=== PATIENT | female | born 1960 | race Caucasian/White ===

== ENCOUNTER 2018-07-09 11:11 | Emergency (ER) | payer OTHER, SELFPAY ==
[2018-07-09 12:04] VITALS: BP 171/98; PULSE 83; RESP 16; TEMP 37.4; O2SAT 98
[2018-07-09] MEDS: ONDANSETRON 4 MG/2 ML INJ IV ×2 (13:13→14:54)
[2018-07-09 13:20] VITALS: BP 169/92; PULSE 66; RESP 15; O2SAT 98
[2018-07-09 13:27] LABS: Add Manual Diff / Slide Review NO; Basophils Percent Auto 1.4 % (0-2); Eosinophils Percent Auto 2.5 % (2-4); Hematocrit 41.2 % (36-46); Hemoglobin 14.1 g/dL (12.0-16.0); Lymphocytes Percent Auto 36.1 % (25-40); Mean Corpuscular HGB Conc 34.2 % (30-36); Mean Corpuscular Hemoglobin 33.3 PG (26-34); Mean Corpuscular Volume 97.5 fL (80-100); Monocytes Percent Auto 4.9 % (3-14); Neutrophils Absolute Auto 4400 /uL (3000-5900); Neutrophils Percent Auto 55.1 % (50-75); Platelet Count 289 X10^3/uL (150-400); Red Blood Cell Count 4.22 X10^6/uL (4.0-5.2); Red Cell Distribution Width 12.6 % (11.6-14.8)
[2018-07-09 13:28] LABS: Prothrombin Time 11.1 SECONDS (10.1-12.7)
[2018-07-09 13:31] LABS: PTT Partial Thromboplastin Tim 30 SECONDS (26.4-36.2)
[2018-07-09 13:39] LABS: Alanine Aminotransferase 22 IU/L (9-52); Albumin 4.8 g/dL (3.5-5.0); Albumin Globulin Ratio 1.8 (1.0-2.8); Alkaline Phosphatase 78 U/L (38-126); Aspartate Aminotransferase 23 IU/L (14-36); BUN Creatinine Ratio 15.7 (6-22); Bilirubin Total 0.6 mg/dL (0.2-1.3); Blood Urea Nitrogen 11 mg/dL (7-17); Calcium 9.3 mg/dL (8.4-10.2); Carbon Dioxide 27 mmol/L (22-32); Chloride 107 mmol/L (98-107); Estimated Glomerular Filt Rate > 60.0 mL/min (>60); Globulin 2.7 g/dL (1.7-4.1); Glucose 97 mg/dL (70-100); HEMOLYSIS 18 (0-50); Lipase 32 U/L (23-300); Potassium 3.9 mmol/L (3.4-5.1); Sodium 145 mmol/L (137-145); Total Protein 7.5 g/dL (6.3-8.2)
--- NOTE | 2018-07-09 14:46 | DI.CT.S_ITS ---
PROCEDURE: CT ABDOMEN PELVIS W CON INDICATIONS: Abdomen pain TECHNIQUE: After the administration of intravenous contrast, 5 mm thick sections acquired from the diaphragm to the symphysis. 5 mm coronal and sagittal reformats were acquired. For radiation dose reduction, the following was used: automated exposure control, adjustment of mA and/or kV according to patient size. COMPARISON: [facility], CT, KIDNEY/ URETER/BLADDER, 06/19/2016, 7:34. FINDINGS: Image quality: Excellent. ABDOMEN: Lung bases: Lung bases are clear. Heart size is normal. Solid organs: Liver is normal in size and enhancement. Gallbladder wall does not appear thickened. Biliary system is non dilated. Pancreas enhances normally. The pancreatic duct measures up to 3 mm, which is at the limits of normal. Spleen is normal in size and enhancement. No adrenal nodules. Kidneys demonstrate normal size and enhancement, without hydronephrosis. Peritoneum and bowel: Bowel loops demonstrate normal wall thickness and caliber. No free fluid or air. A normal appendix is seen, as on series 2 image 52. No focal right lower quadrant inflammatory changes are seen. Diverticulosis is seen, without findings of active diverticulitis. Nodes and vessels: No retroperitoneal or mesenteric adenopathy by size criteria. Aorta and inferior vena cava are normal in size. Atherosclerotic calcification is noted. Miscellaneous: No ventral hernias. PELVIS: Genitourinary: Bladder wall thickness is normal. Miscellaneous: No inguinal hernias or adenopathy. Bones: No suspicious bony lesions. No vertebral body compression fractures. Moderate dextroconvex lumbar scoliosis is seen, with associated degenerative change. IMPRESSION: No gretchen, acute abnormality is seen. Normal appendix. No hydronephrosis. Incidental note is made of: Dextroconvex lumbar scoliosis Diverticulosis is seen, without findings of active diverticulitis. Dictated by: Luis A Amaral M.D. on 07/09/2018 at 14:15 Approved by: Luis A Amaral M.D. on 07/09/2018 at 14:20
[2018-07-09] MEDS: SODIUM CHLORIDE 0.9% 1,000 ML 1000 ML IV (14:55)
[2018-07-09] MEDS: MORPHINE 4 MG/ML INJ IV (14:55)
--- NOTE | 2018-07-09 16:07 | ED.ABDPAIN ---
HPI - Abdominal Pain <Sarah OnealELVINP-BC - Last Filed: 07/09/18 20:02> General Chief Complaint: Abdominal Pain Stated Complaint: thinks has kidney stones Time Seen by Provider: 07/09/18 13:27 Source: patient Mode of arrival: ambulatory Limitations: no limitations History of Present Illness HPI narrative: Patient presents with severe right-sided flank and right groin pain that started this morning. She states she has a history of kidney stones and felt like this was a kidney stone. She denies any fevers, vomiting, diarrhea but does complain of nausea. She states that the pain comes and goes in waves. She also complains of right-sided abdominal pain and cramping. She states she is incredibly gassy, and has been having digestive issues for several weeks. She states she is having pain in her right side when eating, as well as looser stools than normal. She states she has not had a bowel movement since Saturday but states this is normal for her. She states that she does not have any urgency frequency or dysuria. Related Data Home Medications Medication Instructions Recorded Confirmed citalopram [Celexa] 1 tab PO BEDTIME #0 06/19/16 07/09/18 calcium polycarbophil [FiberCon] 1 tab PO PRN PRN #0 02/27/17 07/09/18 cholecalciferol (vitamin D3) 1,000 unit PO DAILY #0 02/27/17 07/09/18 [Vitamin D3] multivitamin [Multiple Vitamins] 1 tab PO DAILY #0 02/27/17 07/09/18 albuterol sulfate [Ventolin HFA] 2 puff INH PRN PRN #0 03/05/17 07/09/18 Qvar RediHaler 1 puff INHALATION DIRECTED 07/09/18 07/09/18 fexofenadine [Leslie Allergy] 180 mg PO DAILY 07/09/18 07/09/18 topiramate 100 mg PO BID 07/09/18 07/09/18 Previous Rx's Medication Instructions Recorded ondansetron HCl 4 mg PO TID-QID PRN #14 tab 07/09/18 Allergies Allergy/AdvReac Type Severity Reaction Status Date / Time NSAIDS (Non-Steroidal Allergy Intermediate Unverified 12/25/17 11:46 Anti-Inflamma [NSAIDS (NON-STEROIDAL ANTI-INFLAMMA] aspirin [ASPIRIN] Allergy Unknown Unverified 12/25/17 11:46 Sulfa (Sulfonamide Allergy Unknown Unverified 12/25/17 11:46 Antibiotics) [SULFA (SULFONAMIDE ANTIBIOTICS)] Review of Systems <Sarah LeyvaELVIN gomezP- - Last Filed: 07/09/18 20:02> Review of Systems GENERAL: Denies chills, fatigue, malaise, fever, sweats. HEENT: Denies sinus pain, ear pain, sore throat, difficulty swallowing, dizziness. RESPIRATORY: Denies dyspnea, cough, wheezing, hemoptysis, sputum. CARDIOVASCULAR: Denies chest pain, palpitations, orthopnea, edema, GASTROINTESTINAL: See HPI : See HPI MUSCULOSKELETAL: denies weakness, joint pain, or bony pain SKIN: Denies rash, skin lesions, or other NEUROLOGIC: Denies weakness, headache, numbness, change in speech, confusion, seizures, incoordination. PSYCHIATRIC: No concerning psychosocial issues. 12 point review of systems is negative except for those stated above Exam <Sarah Oneal [facility] - Last Filed: 07/09/18 20:02> Narrative Exam Narrative: GENERAL: This is a well-nourished, well-developed patient, in mild distress. HEAD: Atraumatic. Normocephalic. No temporal or scalp tenderness. EYES: Pupils equal round and reactive. Extraocular motions intact. No scleral icterus. No injection or drainage. ENT: Nose without bleeding, purulent drainage or septal hematoma. Throat without erythema, tonsillar hypertrophy or exudate. Uvula midline. Airway patent. NECK: Trachea midline. No JVD or lymphadenopathy. Supple, nontender, no meningeal signs. CARDIOVASCULAR: Regular rate and rhythm without murmurs, gallops, or rubs. RESPIRATORY: Clear to auscultation. Breath sounds equal bilaterally. No wheezes, rales, or rhonchi. GASTROINTESTINAL: Abdomen soft, nondistended. No hepato-splenomegaly, or palpable masses. Slight guarding on palpation of lower right quadrant. Nonrigid abdomen. EXTREMITIES: No clubbing, cyanosis, or edema. No joint tenderness, effusion, or edema noted. BACK: Nontender without deformity or crepitance. CVA tenderness right flank. NEURO: AOx3. SKIN: No rash or erythema. Initial Vital Signs Initial Vital Signs: Vital Signs Temperature 99.3 F 07/09/18 12:04 Pulse Rate 83 07/09/18 12:04 Respiratory Rate 16 07/09/18 12:04 Blood Pressure 171/98 H 07/09/18 12:04 Pulse Oximetry 98 07/09/18 12:04 <Sarah Mc DO - Last Filed: 07/11/18 09:49> Initial Vital Signs Initial Vital Signs: Vital Signs Temperature 99.3 F 07/09/18 12:04 Pulse Rate 83 07/09/18 12:04 Respiratory Rate 16 07/09/18 12:04 Blood Pressure 171/98 H 07/09/18 12:04 Pulse Oximetry 98 07/09/18 12:04 Course <ERIC Jensen-FAVIAN - Last Filed: 07/09/18 20:02> Course Narrative: I checked on the patient and her several times throughout her stay in the emergency department. Orders Ordered: Discontinued Medications Sodium Chloride (Normal Saline 0.9%) 500 mls @ 21 mls/hr IV CONT ANAND Last Admin: 07/09/18 14:59 Dose: Not Given Sodium Chloride (Normal Saline 0.9%) 1,000 mls @ 1,000 mls/hr IV BOLUS ONE Stop: 07/09/18 15:29 Last Infusion: 07/09/18 16:27 Dose: 0 mls/hr Admin: 07/09/18 14:55 Dose: 1,000 mls/hr Morphine Sulfate (Morphine) 4 mg IV NOW ONE Stop: 07/09/18 14:47 Last Admin: 07/09/18 14:55 Dose: 4 mg Ondansetron HCl (Zofran) 4 mg IV NOW ONE Stop: 07/09/18 12:32 Last Admin: 07/09/18 13:13 Dose: 4 mg Ondansetron HCl (Zofran) 4 mg IV NOW ONE Stop: 07/09/18 14:31 Last Admin: 07/09/18 14:54 Dose: 4 mg Vital Signs - 8 hr 07/09/18 12:04 07/09/18 13:20 07/09/18 16:14 Temperature 99.3 F Pulse Rate 83 66 61 Respiratory Rate 16 15 13 Blood Pressure 171/98 H Blood Pressure [Right Arm] 169/92 H 165/100 H Pulse Oximetry 98 98 100 <Sarah Mc DO - Last Filed: 07/11/18 09:49> Orders Ordered: Discontinued Medications Sodium Chloride (Normal Saline 0.9%) 500 mls @ 21 mls/hr IV CONT ANAND Last Admin: 07/09/18 14:59 Dose: Not Given Sodium Chloride (Normal Saline 0.9%) 1,000 mls @ 1,000 mls/hr IV BOLUS ONE Stop: 07/09/18 15:29 Last Infusion: 07/09/18 16:27 Dose: 0 mls/hr Admin: 07/09/18 14:55 Dose: 1,000 mls/hr Morphine Sulfate (Morphine) 4 mg IV NOW ONE Stop: 07/09/18 14:47 Last Admin: 07/09/18 14:55 Dose: 4 mg Ondansetron HCl (Zofran) 4 mg IV NOW ONE Stop: 07/09/18 12:32 Last Admin: 07/09/18 13:13 Dose: 4 mg Ondansetron HCl (Zofran) 4 mg IV NOW ONE Stop: 07/09/18 14:31 Last Admin: 07/09/18 14:54 Dose: 4 mg Vital Signs - 8 hr 07/09/18 12:04 07/09/18 13:20 07/09/18 16:14 Temperature 99.3 F Pulse Rate 83 66 61 Respiratory Rate 16 15 13 Blood Pressure 171/98 H Blood Pressure [Right Arm] 169/92 H 165/100 H Pulse Oximetry 98 98 100 MDM - Abdominal Pain <ERIC Jensen-BC - Last Filed: 07/09/18 20:02> Lab Data Result diagrams: 07/09/18 13:10 07/09/18 13:10 Lab Results 07/09/18 07/09/18 07/09/18 Range/Units 13:10 13:10 13:10 WBC 8.0 (4.5-11.0) X10^3/uL RBC 4.22 (4.0-5.2) X10^6/uL Hgb 14.1 (12.0-16.0) g/dL Hct 41.2 (36-46) % MCV 97.5 (80-100) fL MCH 33.3 (26-34) PG MCHC 34.2 (30-36) % RDW 12.6 (11.6-14.8) % Plt Count 289 (150-400) X10^3/uL Neut % (Auto) 55.1 (50-75) % Lymph % (Auto) 36.1 (25-40) % [place] % (Auto) 4.9 (3-14) % Eos % (Auto) 2.5 (2-4) % Baso % (Auto) 1.4 (0-2) % Neut # (Auto) 4400 (6305-4365) /uL PT 11.1 (10.1-12.7) SECONDS INR 1.0 (0.9-1.3) APTT 30 (26.4-36.2) SECONDS Sodium 145 (137-145) mmol/L Potassium 3.9 (3.4-5.1) mmol/L Chloride 107 (98-107) mmol/L Carbon Dioxide 27 (22-32) mmol/L BUN 11 (7-17) mg/dL Creatinine 0.70 (0.52-1.04) mg/dL Estimated GFR > 60.0 (>60) mL/min BUN/Creatinine Ratio 15.7 (6-22) Glucose 97 (70-100) mg/dL Calcium 9.3 (8.4-10.2) mg/dL Total Bilirubin 0.6 (0.2-1.3) mg/dL AST 23 (14-36) IU/L ALT 22 (9-52) IU/L Alkaline Phosphatase 78 (38-126) U/L Total Protein 7.5 (6.3-8.2) g/dL Albumin 4.8 (3.5-5.0) g/dL Globulin 2.7 (1.7-4.1) g/dL Albumin/Globulin Ratio 1.8 (1.0-2.8) Lipase 32 (23-300) U/L Point of care testing: Urine Dip Bedside Urine Glucose Negative Bedside Urine Bilirubin - Negative Bedside Urine Ketone - Negative Urine Specific [place] 1.015 Bedside Urine Occult Blood - Negative Bedside Urine pH 7.0 Bedside Urine Protein - Negative Bedside Urine Urobilinogen - Negative Bedside Urine Nitrite - Negative Bedside Urine Leukocytes - Negative Esterase Imaging Data CT scan - head: Radiologist's impression: Chart Viewer Diagnostics DATE TYPE STATUS AUTHOR 07/09/18 14:46 Luis A Amaral Nikki S 57, 1960 DEP ER, ED - Main ED: R04 Abdominal Pain Search Chart NF - Not included in interaction checking NSAIDS (Non-Steroidal Anti-Inflamma (NSAIDS (NON-STEROIDAL ANTI-INFLAMMA) aspirin (ASPIRIN) Sulfa (Sulfonamide Antibiotics) (SULFA (SULFONAMIDE ANTIBIOTICS)) ONSET Today 16:14 [place] [address] CT Scan Report Signed Patient: Kaylyn De Leon SMR#: [id number] : 1960Acct:[id number] Age/Sex: 57 / FDate of Service: 07/09/18 Loc: ED Accession Number: [id number] Procedure: CT abdomen pelvis w con Ordering Provider: Sarah Oneal SHARK BIOLOGIST- PROCEDURE: CT ABDOMEN PELVIS W CON INDICATIONS: Abdomen pain TECHNIQUE: After the administration of intravenous contrast, 5 mm thick sections acquired from the diaphragm to the symphysis. 5 mm coronal and sagittal reformats were acquired. For radiation dose reduction, the following was used: automated exposure control, adjustment of mA and/or kV according to patient size. COMPARISON: [facility], CT, KIDNEY/ URETER/BLADDER, 06/19/2016, 7:34. FINDINGS: Image quality: Excellent. ABDOMEN: Lung bases: Lung bases are clear. Heart size is normal. Solid organs: Liver is normal in size and enhancement. Gallbladder wall does not appear thickened. Biliary system is non dilated. Pancreas enhances normally. The pancreatic duct measures up to 3 mm, which is at the limits of normal. Spleen is normal in size and enhancement. No adrenal nodules. Kidneys demonstrate normal size and enhancement, without hydronephrosis. Peritoneum and bowel: Bowel loops demonstrate normal wall thickness and caliber. No free fluid or air. A normal appendix is seen, as on series 2 image 52. No focal right lower quadrant inflammatory changes are seen. Diverticulosis is seen, without findings of active diverticulitis. Nodes and vessels: No retroperitoneal or mesenteric adenopathy by size criteria. Aorta and inferior vena cava are normal in size. Atherosclerotic calcification is noted. Miscellaneous: No ventral hernias. PELVIS: Genitourinary: Bladder wall thickness is normal. Miscellaneous: No inguinal hernias or adenopathy. Bones: No suspicious bony lesions. No vertebral body compression fractures. Moderate dextroconvex lumbar scoliosis is seen, with associated degenerative change. IMPRESSION: No gretchen, acute abnormality is seen. Normal appendix. No hydronephrosis. Incidental note is made of: Dextroconvex lumbar scoliosis Diverticulosis is seen, without findings of active diverticulitis. Dictated by: Luis A Amaral M.D. on 07/09/2018 at 14:15 Approved by: Luis A Amaral M.D. on 07/09/2018 at 14:20 [facility] Narrative Medical decision making narrative: Patient presents with vague abdominal pain for 2 weeks as well as a suspected kidney stone. She had a normal CBC, CMP and lipase and abdominal exam. She did not have an acute abdomen on exam. And a CT scan did not reveal any acute etiology. We discussed the possibility of a pelvic exam, the patient states that her pain is likely from a kidney stone and not pelvic in origin. She declined a pelvic exam in the emergency department. I encouraged her to follow up with primary care provider for new or worsening symptoms or come back to the emergency department for any acute concerns. <Sarah Mc, DO - Last Filed: 07/11/18 09:49> Lab Data Lab Results 07/09/18 07/09/18 07/09/18 Range/Units 13:10 13:10 13:10 WBC 8.0 (4.5-11.0) X10^3/uL RBC 4.22 (4.0-5.2) X10^6/uL Hgb 14.1 (12.0-16.0) g/dL Hct 41.2 (36-46) % MCV 97.5 (80-100) fL MCH 33.3 (26-34) PG MCHC 34.2 (30-36) % RDW 12.6 (11.6-14.8) % Plt Count 289 (150-400) X10^3/uL Neut % (Auto) 55.1 (50-75) % Lymph % (Auto) 36.1 (25-40) % [place] % (Auto) 4.9 (3-14) % Eos % (Auto) 2.5 (2-4) % Baso % (Auto) 1.4 (0-2) % Neut # (Auto) 4400 (5788-9226) /uL PT 11.1 (10.1-12.7) SECONDS INR 1.0 (0.9-1.3) APTT 30 (26.4-36.2) SECONDS Sodium 145 (137-145) mmol/L Potassium 3.9 (3.4-5.1) mmol/L Chloride 107 (98-107) mmol/L Carbon Dioxide 27 (22-32) mmol/L BUN 11 (7-17) mg/dL Creatinine 0.70 (0.52-1.04) mg/dL Estimated GFR > 60.0 (>60) mL/min BUN/Creatinine Ratio 15.7 (6-22) Glucose 97 (70-100) mg/dL Calcium 9.3 (8.4-10.2) mg/dL Total Bilirubin 0.6 (0.2-1.3) mg/dL AST 23 (14-36) IU/L ALT 22 (9-52) IU/L Alkaline Phosphatase 78 (38-126) U/L Total Protein 7.5 (6.3-8.2) g/dL Albumin 4.8 (3.5-5.0) g/dL Globulin 2.7 (1.7-4.1) g/dL Albumin/Globulin Ratio 1.8 (1.0-2.8) Lipase 32 (23-300) U/L Point of care testing: Urine Dip Bedside Urine Glucose Negative Bedside Urine Bilirubin - Negative Bedside Urine Ketone - Negative Urine Specific [place] 1.015 Bedside Urine Occult Blood - Negative Bedside Urine pH 7.0 Bedside Urine Protein - Negative Bedside Urine Urobilinogen - Negative Bedside Urine Nitrite - Negative Bedside Urine Leukocytes - Negative Esterase Discharge Plan Departure Patient Disposition: Home Clinical Impression: Abdominal pain Discharge Date/Time: 07/09/18 16:31 Interventions: ED Discharge Assessment Last Done: 07/09/18 16:30 Instructions: DI for Abdominal Pain-Adult Activity Restrictions/Additional Instructions: You CT scan came back normal today. I am not exactly sure why you have the abdominal pain and flank pain today. Please follow-up with your primary care provider tomorrow as discussed. Please come back to the emergency department if needed. Prescriptions: New ondansetron HCl 4 mg tablet 4 mg PO TID-QID PRN (Reason: nausea and vomiting) Qty: 14 RF: 0 No Action citalopram [Celexa] 20 MG tablet 1 tab PO BEDTIME Qty: 0 RF: 0 multivitamin [Multiple Vitamins] 1 EACH tablet 1 tab PO DAILY Qty: 0 RF: 0 calcium polycarbophil [FiberCon] 625 mg Tablet 1 tab PO PRN PRN (Reason: fiber) Qty: 0 RF: 0 cholecalciferol (vitamin D3) [Vitamin D3] 1,000 unit Capsule 1,000 unit PO DAILY Qty: 0 RF: 0 albuterol sulfate [Ventolin HFA] 90 MCG/PUFF HFA aerosol inhaler 2 puff INH PRN PRN (Reason: Shortness Of Breath) Qty: 0 RF: 0 topiramate 100 mg tablet 100 mg PO BID RF: 0 Qvar RediHaler 1 puff Inhalation DIRECTED RF: 0 fexofenadine [Leslie Allergy] 180 mg Tablet 180 mg PO DAILY RF: 0 Referrals: Tiffnaie Miller PA-C [Primary Care Provider] - <Sarah Mc DO - Last Filed: 07/11/18 09:49> Cosign ED Attending Cosignature Attestation: I was immediately available in the department for consultation. This documentation has been reviewed and I agree with assessment and plan. Supervised by Sarah Mc DO
--- NOTE | 2018-07-09 16:12 | ED_ITS ---
HPI - Abdominal Pain <Sarah OnealELVINP-BC - Last Filed: 07/09/18 20:02> General Chief Complaint: Abdominal Pain Stated Complaint: thinks has kidney stones Time Seen by Provider: 07/09/18 13:27 Source: patient Mode of arrival: ambulatory Limitations: no limitations History of Present Illness HPI narrative: Patient presents with severe right-sided flank and right groin pain that started this morning. She states she has a history of kidney stones and felt like this was a kidney stone. She denies any fevers, vomiting, diarrhea but does complain of nausea. She states that the pain comes and goes in waves. She also complains of right-sided abdominal pain and cramping. She states she is incredibly gassy, and has been having digestive issues for several weeks. She states she is having pain in her right side when eating, as well as looser stools than normal. She states she has not had a bowel movement since Saturday but states this is normal for her. She states that she does not have any urgency frequency or dysuria. Related Data Home Medications Medication Instructions Recorded Confirmed citalopram [Celexa] 1 tab PO BEDTIME #0 06/19/16 07/09/18 calcium polycarbophil [FiberCon] 1 tab PO PRN PRN #0 02/27/17 07/09/18 cholecalciferol (vitamin D3) 1,000 unit PO DAILY #0 02/27/17 07/09/18 [Vitamin D3] multivitamin [Multiple Vitamins] 1 tab PO DAILY #0 02/27/17 07/09/18 albuterol sulfate [Ventolin HFA] 2 puff INH PRN PRN #0 03/05/17 07/09/18 Qvar RediHaler 1 puff INHALATION DIRECTED 07/09/18 07/09/18 fexofenadine [Leslie Allergy] 180 mg PO DAILY 07/09/18 07/09/18 topiramate 100 mg PO BID 07/09/18 07/09/18 Previous Rx's Medication Instructions Recorded ondansetron HCl 4 mg PO TID-QID PRN #14 tab 07/09/18 Allergies Allergy/AdvReac Type Severity Reaction Status Date / Time NSAIDS (Non-Steroidal Allergy Intermediate Unverified 12/25/17 11:46 Anti-Inflamma [NSAIDS (NON-STEROIDAL ANTI-INFLAMMA] aspirin [ASPIRIN] Allergy Unknown Unverified 12/25/17 11:46 Sulfa (Sulfonamide Allergy Unknown Unverified 12/25/17 11:46 Antibiotics) [SULFA (SULFONAMIDE ANTIBIOTICS)] Review of Systems <Sarah LeyvaELVIN gomezP- - Last Filed: 07/09/18 20:02> Review of Systems GENERAL: Denies chills, fatigue, malaise, fever, sweats. HEENT: Denies sinus pain, ear pain, sore throat, difficulty swallowing, dizziness. RESPIRATORY: Denies dyspnea, cough, wheezing, hemoptysis, sputum. CARDIOVASCULAR: Denies chest pain, palpitations, orthopnea, edema, GASTROINTESTINAL: See HPI : See HPI MUSCULOSKELETAL: denies weakness, joint pain, or bony pain SKIN: Denies rash, skin lesions, or other NEUROLOGIC: Denies weakness, headache, numbness, change in speech, confusion, seizures, incoordination. PSYCHIATRIC: No concerning psychosocial issues. 12 point review of systems is negative except for those stated above Exam <Sarah Oneal [facility] - Last Filed: 07/09/18 20:02> Narrative Exam Narrative: GENERAL: This is a well-nourished, well-developed patient, in mild distress. HEAD: Atraumatic. Normocephalic. No temporal or scalp tenderness. EYES: Pupils equal round and reactive. Extraocular motions intact. No scleral icterus. No injection or drainage. ENT: Nose without bleeding, purulent drainage or septal hematoma. Throat without erythema, tonsillar hypertrophy or exudate. Uvula midline. Airway patent. NECK: Trachea midline. No JVD or lymphadenopathy. Supple, nontender, no meningeal signs. CARDIOVASCULAR: Regular rate and rhythm without murmurs, gallops, or rubs. RESPIRATORY: Clear to auscultation. Breath sounds equal bilaterally. No wheezes , rales, or rhonchi. GASTROINTESTINAL: Abdomen soft, nondistended. No hepato-splenomegaly, or palpable masses. Slight guarding on palpation of lower right quadrant. Nonrigid abdomen. EXTREMITIES: No clubbing, cyanosis, or edema. No joint tenderness, effusion, or edema noted. BACK: Nontender without deformity or crepitance. CVA tenderness right flank. NEURO: AOx3. SKIN: No rash or erythema. Initial Vital Signs Initial Vital Signs: Vital Signs Temperature 99.3 F 07/09/18 12:04 Pulse Rate 83 07/09/18 12:04 Respiratory Rate 16 07/09/18 12:04 Blood Pressure 171/98 H 07/09/18 12:04 Pulse Oximetry 98 07/09/18 12:04 <Sarah Mc DO - Last Filed: 07/11/18 09:49> Initial Vital Signs Initial Vital Signs: Vital Signs Temperature 99.3 F 07/09/18 12:04 Pulse Rate 83 07/09/18 12:04 Respiratory Rate 16 07/09/18 12:04 Blood Pressure 171/98 H 07/09/18 12:04 Pulse Oximetry 98 07/09/18 12:04 Course <ERIC Jensen-FAVIAN - Last Filed: 07/09/18 20:02> Course Narrative: I checked on the patient and her several times throughout her stay in the emergency department. Orders Ordered: Discontinued Medications Sodium Chloride (Normal Saline 0.9%) 500 mls @ 21 mls/hr IV CONT ANAND Last Admin: 07/09/18 14:59 Dose: Not Given Sodium Chloride (Normal Saline 0.9%) 1,000 mls @ 1,000 mls/hr IV BOLUS ONE Stop: 07/09/18 15:29 Last Infusion: 07/09/18 16:27 Dose: 0 mls/hr Admin: 07/09/18 14:55 Dose: 1,000 mls/hr Morphine Sulfate (Morphine) 4 mg IV NOW ONE Stop: 07/09/18 14:47 Last Admin: 07/09/18 14:55 Dose: 4 mg Ondansetron HCl (Zofran) 4 mg IV NOW ONE Stop: 07/09/18 12:32 Last Admin: 07/09/18 13:13 Dose: 4 mg Ondansetron HCl (Zofran) 4 mg IV NOW ONE Stop: 07/09/18 14:31 Last Admin: 07/09/18 14:54 Dose: 4 mg Vital Signs - 8 hr 07/09/18 12:04 07/09/18 13:20 07/09/18 16:14 Temperature 99.3 F Pulse Rate 83 66 61 Respiratory Rate 16 15 13 Blood Pressure 171/98 H Blood Pressure [Right Arm] 169/92 H 165/100 H Pulse Oximetry 98 98 100 <Sarah Mc DO - Last Filed: 07/11/18 09:49> Orders Ordered: Discontinued Medications Sodium Chloride (Normal Saline 0.9%) 500 mls @ 21 mls/hr IV CONT ANAND Last Admin: 07/09/18 14:59 Dose: Not Given Sodium Chloride (Normal Saline 0.9%) 1,000 mls @ 1,000 mls/hr IV BOLUS ONE Stop: 07/09/18 15:29 Last Infusion: 07/09/18 16:27 Dose: 0 mls/hr Admin: 07/09/18 14:55 Dose: 1,000 mls/hr Morphine Sulfate (Morphine) 4 mg IV NOW ONE Stop: 07/09/18 14:47 Last Admin: 07/09/18 14:55 Dose: 4 mg Ondansetron HCl (Zofran) 4 mg IV NOW ONE Stop: 07/09/18 12:32 Last Admin: 07/09/18 13:13 Dose: 4 mg Ondansetron HCl (Zofran) 4 mg IV NOW ONE Stop: 07/09/18 14:31 Last Admin: 07/09/18 14:54 Dose: 4 mg Vital Signs - 8 hr 07/09/18 12:04 07/09/18 13:20 07/09/18 16:14 Temperature 99.3 F Pulse Rate 83 66 61 Respiratory Rate 16 15 13 Blood Pressure 171/98 H Blood Pressure [Right Arm] 169/92 H 165/100 H Pulse Oximetry 98 98 100 MDM - Abdominal Pain <ERIC Jnesen-BC - Last Filed: 07/09/18 20:02> Lab Data Result diagrams: 07/09/18 13:10 07/09/18 13:10 Lab Results 07/09/18 07/09/18 07/09/18 Range/Units 13:10 13:10 13:10 WBC 8.0 (4.5-11.0) X10^3/uL RBC 4.22 (4.0-5.2) X10^6/uL Hgb 14.1 (12.0-16.0) g/dL Hct 41.2 (36-46) % MCV 97.5 (80-100) fL MCH 33.3 (26-34) PG MCHC 34.2 (30-36) % RDW 12.6 (11.6-14.8) % Plt Count 289 (150-400) X10^3/uL Neut % (Auto) 55.1 (50-75) % Lymph % (Auto) 36.1 (25-40) % [place] % (Auto) 4.9 (3-14) % Eos % (Auto) 2.5 (2-4) % Baso % (Auto) 1.4 (0-2) % Neut # (Auto) 4400 (1169-6139) /uL PT 11.1 (10.1-12.7) SECONDS INR 1.0 (0.9-1.3) APTT 30 (26.4-36.2) SECONDS Sodium 145 (137-145) mmol/L Potassium 3.9 (3.4-5.1) mmol/L Chloride 107 (98-107) mmol/L Carbon Dioxide 27 (22-32) mmol/L BUN 11 (7-17) mg/dL Creatinine 0.70 (0.52-1.04) mg/dL Estimated GFR > 60.0 (>60) mL/min BUN/Creatinine Ratio 15.7 (6-22) Glucose 97 (70-100) mg/dL Calcium 9.3 (8.4-10.2) mg/dL Total Bilirubin 0.6 (0.2-1.3) mg/dL AST 23 (14-36) IU/L ALT 22 (9-52) IU/L Alkaline Phosphatase 78 (38-126) U/L Total Protein 7.5 (6.3-8.2) g/dL Albumin 4.8 (3.5-5.0) g/dL Globulin 2.7 (1.7-4.1) g/dL Albumin/Globulin Ratio 1.8 (1.0-2.8) Lipase 32 (23-300) U/L Point of care testing: Urine Dip Bedside Urine Glucose Negative Bedside Urine Bilirubin - Negative Bedside Urine Ketone - Negative Urine Specific [place] 1.015 Bedside Urine Occult Blood - Negative Bedside Urine pH 7.0 Bedside Urine Protein - Negative Bedside Urine Urobilinogen - Negative Bedside Urine Nitrite - Negative Bedside Urine Leukocytes - Negative Esterase Imaging Data CT scan - head: Radiologist's impression: Chart [facility] Diagn[facility] DATE TYPE STATUS AUTHOR 07/09/18 14:46 Luis A Amaral Nikki S 57, 1960 DEP ER, ED - Main ED: R04 Abdominal Pain Search Chart NF - Not included in interaction checking NSAIDS (Non-Steroidal Anti-Inflamma (NSAIDS (NON-STEROIDAL ANTI-INFLAMMA) aspirin (ASPIRIN) Sulfa (Sulfonamide Antibiotics) (SULFA (SULFONAMIDE ANTIBIOTICS)) ONSET Today 16:14 [place] [address] CT Scan Report Signed Patient: Kaylyn De Leon SMR#: [id number] : 1960Acct:[id number] Age/Sex: 57 / FDate of Service: 07/09/18 Loc: ED Accession Number: [id number] Procedure: CT abdomen pelvis w con Ordering Provider: Sarah Oneal [employer]- PROCEDURE: CT ABDOMEN PELVIS W CON INDICATIONS: Abdomen pain TECHNIQUE: After the administration of intravenous contrast, 5 mm thick sections acquired from the diaphragm to the symphysis. 5 mm coronal and sagittal reformats were acquired. For radiation dose reduction, the following was used: automated exposure control, adjustment of mA and/or kV according to patient size. COMPARISON: [facility], CT, KIDNEY/ URETER/BLADDER, 06/19/2016, 7:34. FINDINGS: Image quality: Excellent. ABDOMEN: Lung bases: Lung bases are clear. Heart size is normal. Solid organs: Liver is normal in size and enhancement. Gallbladder wall does not appear thickened. Biliary system is non dilated. Pancreas enhances normally. The pancreatic duct measures up to 3 mm, which is at the limits of normal. Spleen is normal in size and enhancement. No adrenal nodules. Kidneys demonstrate normal size and enhancement, without hydronephrosis. Peritoneum and bowel: Bowel loops demonstrate normal wall thickness and caliber. No free fluid or air. A normal appendix is seen, as on series 2 image 52. No focal right lower quadrant inflammatory changes are seen. Diverticulosis is seen, without findings of active diverticulitis. Nodes and vessels: No retroperitoneal or mesenteric adenopathy by size criteria. Aorta and inferior vena cava are normal in size. Atherosclerotic calcification is noted. Miscellaneous: No ventral hernias. PELVIS: Genitourinary: Bladder wall thickness is normal. Miscellaneous: No inguinal hernias or adenopathy. Bones: No suspicious bony lesions. No vertebral body compression fractures. Moderate dextroconvex lumbar scoliosis is seen, with associated degenerative change. IMPRESSION: No gretchen, acute abnormality is seen. Normal appendix. No hydronephrosis. Incidental note is made of: Dextroconvex lumbar scoliosis Diverticulosis is seen, without findings of active diverticulitis. Dictated by: Luis A Amaral M.D. on 07/09/2018 at 14:15 Approved by: Luis A Amaral M.D. on 07/09/2018 at 14:20 [facility] Narrative Medical decision making narrative: Patient presents with vague abdominal pain for 2 weeks as well as a suspected kidney stone. She had a normal CBC, CMP and lipase and abdominal exam. She did not have an acute abdomen on exam. And a CT scan did not reveal any acute etiology. We discussed the possibility of a pelvic exam, the patient states that her pain is likely from a kidney stone and not pelvic in origin. She declined a pelvic exam in the emergency department. I encouraged her to follow up with primary care provider for new or worsening symptoms or come back to the emergency department for any acute concerns. <Sarah Mc, DO - Last Filed: 07/11/18 09:49> Lab Data Lab Results 07/09/18 07/09/18 07/09/18 Range/Units 13:10 13:10 13:10 WBC 8.0 (4.5-11.0) X10^3/uL RBC 4.22 (4.0-5.2) X10^6/uL Hgb 14.1 (12.0-16.0) g/dL Hct 41.2 (36-46) % MCV 97.5 (80-100) fL MCH 33.3 (26-34) PG MCHC 34.2 (30-36) % RDW 12.6 (11.6-14.8) % Plt Count 289 (150-400) X10^3/uL Neut % (Auto) 55.1 (50-75) % Lymph % (Auto) 36.1 (25-40) % [place] % (Auto) 4.9 (3-14) % Eos % (Auto) 2.5 (2-4) % Baso % (Auto) 1.4 (0-2) % Neut # (Auto) 4400 (6632-5902) /uL PT 11.1 (10.1-12.7) SECONDS INR 1.0 (0.9-1.3) APTT 30 (26.4-36.2) SECONDS Sodium 145 (137-145) mmol/L Potassium 3.9 (3.4-5.1) mmol/L Chloride 107 (98-107) mmol/L Carbon Dioxide 27 (22-32) mmol/L BUN 11 (7-17) mg/dL Creatinine 0.70 (0.52-1.04) mg/dL Estimated GFR > 60.0 (>60) mL/min BUN/Creatinine Ratio 15.7 (6-22) Glucose 97 (70-100) mg/dL Calcium 9.3 (8.4-10.2) mg/dL Total Bilirubin 0.6 (0.2-1.3) mg/dL AST 23 (14-36) IU/L ALT 22 (9-52) IU/L Alkaline Phosphatase 78 (38-126) U/L Total Protein 7.5 (6.3-8.2) g/dL Albumin 4.8 (3.5-5.0) g/dL Globulin 2.7 (1.7-4.1) g/dL Albumin/Globulin Ratio 1.8 (1.0-2.8) Lipase 32 (23-300) U/L Point of care testing: Urine Dip Bedside Urine Glucose Negative Bedside Urine Bilirubin - Negative Bedside Urine Ketone - Negative Urine Specific [place] 1.015 Bedside Urine Occult Blood - Negative Bedside Urine pH 7.0 Bedside Urine Protein - Negative Bedside Urine Urobilinogen - Negative Bedside Urine Nitrite - Negative Bedside Urine Leukocytes - Negative Esterase Discharge Plan Departure Patient Disposition: Home Clinical Impression: Abdominal pain Discharge Date/Time: 07/09/18 16:31 Interventions: ED Discharge Assessment Last Done: 07/09/18 16:30 Instructions: DI for Abdominal Pain-Adult Activity Restrictions/Additional Instructions: You CT scan came back normal today. I am not exactly sure why you have the abdominal pain and flank pain today. Please follow-up with your primary care provider tomorrow as discussed. Please come back to the emergency department if needed. Prescriptions: New ondansetron HCl 4 mg tablet 4 mg PO TID-QID PRN (Reason: nausea and vomiting) Qty: 14 RF: 0 No Action citalopram [Celexa] 20 MG tablet 1 tab PO BEDTIME Qty: 0 RF: 0 multivitamin [Multiple Vitamins] 1 EACH tablet 1 tab PO DAILY Qty: 0 RF: 0 calcium polycarbophil [FiberCon] 625 mg Tablet 1 tab PO PRN PRN (Reason: fiber) Qty: 0 RF: 0 cholecalciferol (vitamin D3) [Vitamin D3] 1,000 unit Capsule 1,000 unit PO DAILY Qty: 0 RF: 0 albuterol sulfate [Ventolin HFA] 90 MCG/PUFF HFA aerosol inhaler 2 puff INH PRN PRN (Reason: Shortness Of Breath) Qty: 0 RF: 0 topiramate 100 mg tablet 100 mg PO BID RF: 0 Qvar RediHaler 1 puff Inhalation DIRECTED RF: 0 fexofenadine [Leslie Allergy] 180 mg Tablet 180 mg PO DAILY RF: 0 Referrals: Tiffanie Miller PA-C [Primary Care Provider] - <Sarah Mc DO - Last Filed: 07/11/18 09:49> Cosign ED Attending Cosignature Attestation: I was immediately available in the department for consultation. This documentation has been reviewed and I agree with assessment and plan. Supervised by Sarah Mc DO
[2018-07-09 16:14] VITALS: BP 165/100; PULSE 61; RESP 13; O2SAT 100
== END 2018-07-09 16:31 | disposition home or self-care (01) ==
PROVIDERS: Emergency Medicine; Emergency Provider Nurse Practitioner Family; Family Provider Physician Assistant; PCP Physician Assistant
DX: R10.9 Unspecified abdominal pain (principal)
CPT/HCPCS: 36591; 74177; 80053; 81003; 83690; 85025; 85610; 85730; 96361; 96374; 96375; 96376; 99283; 99285; J2270; J2405; Q9967

== ENCOUNTER 2018-07-11 10:16 | Emergency (ER) | payer OTHER, SELFPAY ==
[2018-07-11 10:30] VITALS: BP 159/104; PULSE 81; RESP 24; TEMP 37.1; O2SAT 96
--- NOTE | 2018-07-11 10:33 | PC.NURSE ---
Pt states she has chronic back pain with history of 2 back surgeries. she was seen just a few days ago in the ED for possible kidney stones, her workup was negative. She is able to move around the room but grimices during movement. Here PCP told her to come in yesterday, but shes states she was not able to move and therefore stayed home and use ice threapy. Pt in a comfortable position in the [facility].
[2018-07-11 11:37] VITALS: BP 166/110; PULSE 80; RESP 18; TEMP 36.1; O2SAT 93
--- NOTE | 2018-07-11 12:04 | ED.BACK ---
HPI - Back Pain/Injury <Vi Boggs PA-C - Last Filed: 07/11/18 21:21> General Chief Complaint: Back Pain/Injury Stated Complaint: back pain, groin Time Seen by Provider: 07/11/18 12:04 Source: patient and family Mode of arrival: ambulatory Limitations: no limitations History of Present Illness HPI Narrative: This 57-year-old female returns to ED today due to worsening right low back, and anterior hip/ groin area pain. She states that initially, she thought this was a kidney stone because pain was similar in quality, so she went home on Saturday and started pushing fluids. She states that pain has persistently worsened over the last couple of days and she realizes now that this is coming from my back and is not a kidney stone, because it is better when she is lying down. She states it is worse when she is standing and walking at all. She describes the location in her right low back, and at times can feel in her groin or the top of her thigh. She states that she does not think pain is worse with trunk motion. She denies any specific injury or activity change, states that it was getting harder for her to walk due to pain a couple of weeks ago but was able to do normal activities. She states that she does have chronic back pain that she lives with, but this is much worse. She has been taking Tylenol at home without relief. She states that she hobbled to the car today with help, but states really she has not been even getting up and about her house due to the pain. She denies any hematuria, dysuria or urinary symptoms. She is able to urinate normally. She states that she has not had a bowel movement in the last 2 days, but that is not unusual for her. She is not having any chest pain, abdominal pain, or dyspnea. She has not had any fever, rash, or recent illness with this pain. She denies any weakness in the extremities. States she can occasionally have a little bit of tingling in some of her right toes which is not persistent. No other paresthesia. She has not had any new swelling in the extremities. She states that she has had some ongoing dysphagia which she is working up with her PCP, but this is not changed recently. she denies any history of kidney or liver disease. Related Data Home Medications Medication Instructions Recorded Confirmed citalopram [Celexa] 1 tab PO BEDTIME #0 06/19/16 07/11/18 calcium polycarbophil [FiberCon] 1 tab PO PRN PRN #0 02/27/17 07/11/18 cholecalciferol (vitamin D3) 1,000 unit PO DAILY #0 02/27/17 07/11/18 [Vitamin D3] multivitamin [Multiple Vitamins] 1 tab PO DAILY #0 02/27/17 07/11/18 albuterol sulfate [Ventolin HFA] 2 puff INH PRN PRN #0 03/05/17 07/11/18 Qvar RediHaler 1 puff INHALATION DIRECTED 07/09/18 07/11/18 fexofenadine [Leslie Allergy] 180 mg PO DAILY 07/09/18 07/11/18 topiramate 100 mg PO BID 07/09/18 07/11/18 Previous Rx's Medication Instructions Recorded ondansetron HCl 4 mg PO TID-QID PRN #14 tab 07/09/18 morphine 15 mg PO Q6H PRN #10 tab 07/11/18 Allergies Allergy/AdvReac Type Severity Reaction Status Date / Time NSAIDS (Non-Steroidal Allergy Intermediate Unverified 07/11/18 10:25 Anti-Inflamma [NSAIDS (NON-STEROIDAL ANTI-INFLAMMA] aspirin [ASPIRIN] Allergy Unknown Unverified 07/11/18 10:25 Sulfa (Sulfonamide Allergy Unknown Unverified 07/11/18 10:25 Antibiotics) [SULFA (SULFONAMIDE ANTIBIOTICS)] Review of Systems <Vi Boggs PA-C - Last Filed: 07/11/18 21:21> Review of Systems All systems reviewed & are unremarkable except as noted in HPI and below Exam <Vi Boggs PA-C - Last Filed: 07/11/18 21:21> Narrative Exam Narrative: GENERAL APPEARANCE: Patient appears comfortable on her back, in no distress PULMONARY: Lungs clear to auscultation bilaterally CV: Regular rhythm regular without murmur, normal S1 and S2, no S3 or S4 MUSCULOSKELETAL: No point tenderness over the lumbar spine. she has normal seated trunk range of motion, but is tender especially with right lateral bend. Lower extremity strength 5/5 bilateral hip flexors, knee extensors, foot plantar flexion And dorsiflexion. Negative modified straight leg raise ( right-sided straight leg raise reproduces right low back pain). ABDOMEN: Soft, nontender, nondistended, no suprapubic tenderness NEUROLOGIC: sensation is grossly intact in the lower extremities EXTREMITIES: No cyanosis or edema, ft are warm and pink DERMATOLOGIC: no exanthem Initial Vital Signs Initial Vital Signs: Vital Signs Temperature 98.8 F 07/11/18 10:30 Pulse Rate 81 07/11/18 10:30 Respiratory Rate 24 07/11/18 10:30 Blood Pressure 159/104 H 07/11/18 10:30 Pulse Oximetry 96 07/11/18 10:30 <Sarah Mc DO - Last Filed: 07/13/18 08:05> Initial Vital Signs Initial Vital Signs: Vital Signs Temperature 98.8 F 07/11/18 10:30 Pulse Rate 81 07/11/18 10:30 Respiratory Rate 24 07/11/18 10:30 Blood Pressure 159/104 H 07/11/18 10:30 Pulse Oximetry 96 07/11/18 10:30 Course <Vi Boggs PA-C - Last Filed: 07/11/18 21:21> Additional Information: patient did not get relief with initial medications, but had significant improvement with morphine, stating she did get up and walk to restroom and feels like she can take a shower. She already has antinausea meds at home. I talked with her PCP who states she has not previously evaluated her back pain as patient was referred to a pain specialist, but will see her Saturday morning. She was agreeable with patient getting some morphine for the weekend As patient has failed numerous medication trials including gabapentin. Patient is established with supplier specialist here in [facility], and advised follow-up is definitely needed and probably further imaging with MRI. She does not seem to have any neurologic deficit on exam today, however advised her if she has any acutely worsening symptoms, or new extremity weakness, difficulty urinating etc, needs to return over the weekend and she is agreeable. she has increased pain with walking, though this seems localized to her back. She has some intermittent tingling in her right toes. Needs further evaluation for a typical neurogenic claudication or radicular symptoms. Orders Ordered: Discontinued Medications Methocarbamol (Robaxin) 500 mg PO NOW ONE Stop: 07/11/18 12:32 Last Admin: 07/11/18 12:38 Dose: 500 mg Morphine Sulfate (Morphine) 4 mg SUBCUT NOW ONE Stop: 07/11/18 14:10 Last Admin: 07/11/18 14:14 Dose: 4 mg Ondansetron HCl (Zofran Odt) 4 mg PO NOW ONE Stop: 07/11/18 12:28 Last Admin: 07/11/18 12:32 Dose: 4 mg Oxycodone/Acetaminophen (Percocet 5/325) 1 tab PO NOW ONE Stop: 07/11/18 12:28 Last Admin: 07/11/18 12:32 Dose: 1 tab Vital Signs - 8 hr 07/11/18 14:32 07/11/18 15:31 Pulse Rate 77 69 Respiratory Rate 18 18 Blood Pressure [Right Arm] 149/103 H 141/86 H Pulse Oximetry 96 93 <Sarah Mc DO - Last Filed: 07/13/18 08:05> Orders Ordered: Discontinued Medications Methocarbamol (Robaxin) 500 mg PO NOW ONE Stop: 07/11/18 12:32 Last Admin: 07/11/18 12:38 Dose: 500 mg Morphine Sulfate (Morphine) 4 mg SUBCUT NOW ONE Stop: 07/11/18 14:10 Last Admin: 07/11/18 14:14 Dose: 4 mg Ondansetron HCl (Zofran Odt) 4 mg PO NOW ONE Stop: 07/11/18 12:28 Last Admin: 07/11/18 12:32 Dose: 4 mg Oxycodone/Acetaminophen (Percocet 5/325) 1 tab PO NOW ONE Stop: 07/11/18 12:28 Last Admin: 07/11/18 12:32 Dose: 1 tab Vital Signs - 8 hr 07/11/18 14:32 07/11/18 15:31 Pulse Rate 77 69 Respiratory Rate 18 18 Blood Pressure [Right Arm] 149/103 H 141/86 H Pulse Oximetry 96 93 MDM - Back Pain/Injury <Vi Boggs PA-C - Last Filed: 07/11/18 21:21> Imaging Data lumbar and hip: Radiologist's impression: [address] [address] XRay Report Signed Patient: Kaylyn De Leon [facility]#: [id number] : 1960Acct:[id number] Age/Sex: 57 / FDate of Service: 07/11/18 Loc: ED Accession Number: [id number] Procedure: XR hip w pel if done RT 2V Ordering Provider: Vi Boggs P.A-C PROCEDURE: XR HIP W PEL IF DONE RT 2V INDICATIONS: pain TECHNIQUE: 2 views of the hip were acquired. COMPARISON: [facility], CR, XR LUMBAR SPINE 2-3V, 07/11/2018, 12:06. [facility], CT, CT ABDOMEN PELVIS W CON, 07/09/2018, 14:44. FINDINGS: Bones: No fractures or dislocations. No suspicious bony lesions. The visualized pelvic ring appears intact. Age-appropriate lower lumbar spine degenerative changes are noted. There is mild superior joint space narrowing seen of both hips, with associated remodeling changes with subchondral sclerosis and osteophyte formation. Soft tissues: No suspicious soft tissue calcifications or masses. IMPRESSION: Degenerative changes are seen, without an acute bony abnormality identified. Dictated by: Luis A Amaral M.D. on 07/11/2018 at 12:09 Approved by: Luis A Amaral M.D. on 06/17 [place] [address] XRay Report Signed Patient: Kaylyn De Leon [facility]#: [id number] : 1960Acct:[id number] Age/Sex: 57 / FDate of Service: 07/11/18 Loc: ED Accession Number: [id number] Procedure: XR lumbar spine 2-3V Ordering Provider: Vi Boggs P.A-C PROCEDURE: XR LUMBAR SPINE 2-3V INDICATIONS: low back pain TECHNIQUE: 3 views of the lumbar spine were acquired. COMPARISON: [facility], CR, XR HIP W PEL IF DONE RT 2V, 07/11/2018, 12:06. [facility], CT, CT ABDOMEN PELVIS W CON, 07/09/2018, 14:44. FINDINGS: Bones: There is moderate dextroconvex lumbar scoliosis. No displaced fractures are seen. No suspicious lytic or blastic lesions are seen. Prominent facet arthropathy is seen, particularly inferiorly. Moderate to severe disc space narrowing can be seen at each lumbar level. 5 nonrib-bearing, lumbar type vertebral bodies are seen. Soft tissues: Overlying bowel gas pattern is normal. No suspicious soft tissue calcifications. IMPRESSION: Moderate dextroconvex lumbar scoliosis and associated degenerative changes. Dictated by: Luis A Amaral M.D. on 07/11/2018 at 12:10 Approved by: Luis A Amaral M.D. on 07/11/2018 at 12:11 Discharge Plan Departure Patient Disposition: Home Clinical Impression: Low back pain potentially associated with radiculopathy, Degenerative disc disease, Scoliosis Discharge Date/Time: 07/11/18 15:35 Interventions: ED Discharge Assessment Last Done: 07/11/18 15:33 Instructions: DI for Low Back Pain Activity Restrictions/Additional Instructions: You should return as we talked about if you have any acutely worsening pain, or new symptoms such as numbness in the groin, inability to urinate, or weakness in your legs. You do need further workup as we discussed. Your x-rays do not show any acute problem, however you are right in that an MRI may be needed to evaluate for disc and spinal cord problems, such as pressure on the spinal cord or a herniated disc. You can take the pain medicine as needed this weekend, but be careful about driving or activities were you need to be alert as it could make you sleepy. You can take the antinausea medicine that you already have as needed. Please follow-up with your PCP Saturday morning at 10:15 a.m., and also please call Dr. Sumner's office to schedule follow up. Prescriptions: New morphine 15 mg tablet 15 mg PO Q6H PRN (Reason: pain) Qty: 10 RF: 0 No Action citalopram [Celexa] 20 MG tablet 1 tab PO BEDTIME Qty: 0 RF: 0 multivitamin [Multiple Vitamins] 1 EACH tablet 1 tab PO DAILY Qty: 0 RF: 0 calcium polycarbophil [FiberCon] 625 mg Tablet 1 tab PO PRN PRN (Reason: fiber) Qty: 0 RF: 0 cholecalciferol (vitamin D3) [Vitamin D3] 1,000 unit Capsule 1,000 unit PO DAILY Qty: 0 RF: 0 albuterol sulfate [Ventolin HFA] 90 MCG/PUFF HFA aerosol inhaler 2 puff INH PRN PRN (Reason: Shortness Of Breath) Qty: 0 RF: 0 topiramate 100 mg tablet 100 mg PO BID RF: 0 Qvar RediHaler 1 puff Inhalation DIRECTED RF: 0 fexofenadine [Leslie Allergy] 180 mg Tablet 180 mg PO DAILY RF: 0 ondansetron HCl 4 mg tablet 4 mg PO TID-QID PRN (Reason: nausea and vomiting) Qty: 14 RF: 0 Referrals: Tiffanie Miller PA-C [Primary Care Provider] - Nithin Sumner MD [Physician] - <Sarah Mc DO - Last Filed: 07/13/18 08:05> Cosign ED Attending Cosignature Attestation: I was immediately available in the department for consultation. This documentation has been reviewed and I agree with assessment and plan. Supervised by Sarah Mc DO
--- NOTE | 2018-07-11 12:07 | ED_ITS ---
HPI - Back Pain/Injury <Vi Boggs PA-C - Last Filed: 07/11/18 21:21> General Chief Complaint: Back Pain/Injury Stated Complaint: back pain, groin Time Seen by Provider: 07/11/18 12:04 Source: patient and family Mode of arrival: ambulatory Limitations: no limitations History of Present Illness HPI Narrative: This 57-year-old female returns to ED today due to worsening right low back, and anterior hip/ groin area pain. She states that initially, she thought this was a kidney stone because pain was similar in quality, so she went home on Saturday and started pushing fluids. She states that pain has persistently worsened over the last couple of days and she realizes now that this is coming from my back and is not a kidney stone, because it is better when she is lying down. She states it is worse when she is standing and walking at all. She describes the location in her right low back, and at times can feel in her groin or the top of her thigh. She states that she does not think pain is worse with trunk motion. She denies any specific injury or activity change, states that it was getting harder for her to walk due to pain a couple of weeks ago but was able to do normal activities. She states that she does have chronic back pain that she lives with, but this is much worse. She has been taking Tylenol at home without relief. She states that she hobbled to the car today with help, but states really she has not been even getting up and about her house due to the pain. She denies any hematuria, dysuria or urinary symptoms. She is able to urinate normally. She states that she has not had a bowel movement in the last 2 days, but that is not unusual for her. She is not having any chest pain, abdominal pain, or dyspnea. She has not had any fever, rash, or recent illness with this pain. She denies any weakness in the extremities. States she can occasionally have a little bit of tingling in some of her right toes which is not persistent. No other paresthesia. She has not had any new swelling in the extremities. She states that she has had some ongoing dysphagia which she is working up with her PCP, but this is not changed recently. she denies any history of kidney or liver disease. Related Data Home Medications Medication Instructions Recorded Confirmed citalopram [Celexa] 1 tab PO BEDTIME #0 06/19/16 07/11/18 calcium polycarbophil [FiberCon] 1 tab PO PRN PRN #0 02/27/17 07/11/18 cholecalciferol (vitamin D3) 1,000 unit PO DAILY #0 02/27/17 07/11/18 [Vitamin D3] multivitamin [Multiple Vitamins] 1 tab PO DAILY #0 02/27/17 07/11/18 albuterol sulfate [Ventolin HFA] 2 puff INH PRN PRN #0 03/05/17 07/11/18 Qvar RediHaler 1 puff INHALATION DIRECTED 07/09/18 07/11/18 fexofenadine [Leslie Allergy] 180 mg PO DAILY 07/09/18 07/11/18 topiramate 100 mg PO BID 07/09/18 07/11/18 Previous Rx's Medication Instructions Recorded ondansetron HCl 4 mg PO TID-QID PRN #14 tab 07/09/18 morphine 15 mg PO Q6H PRN #10 tab 07/11/18 Allergies Allergy/AdvReac Type Severity Reaction Status Date / Time NSAIDS (Non-Steroidal Allergy Intermediate Unverified 07/11/18 10:25 Anti-Inflamma [NSAIDS (NON-STEROIDAL ANTI-INFLAMMA] aspirin [ASPIRIN] Allergy Unknown Unverified 07/11/18 10:25 Sulfa (Sulfonamide Allergy Unknown Unverified 07/11/18 10:25 Antibiotics) [SULFA (SULFONAMIDE ANTIBIOTICS)] Review of Systems <Vi Boggs PA-C - Last Filed: 07/11/18 21:21> Review of Systems All systems reviewed & are unremarkable except as noted in HPI and below Exam <Vi Boggs PA-C - Last Filed: 07/11/18 21:21> Narrative Exam Narrative: GENERAL APPEARANCE: Patient appears comfortable on her back, in no distress PULMONARY: Lungs clear to auscultation bilaterally CV: Regular rhythm regular without murmur, normal S1 and S2, no S3 or S4 MUSCULOSKELETAL: No point tenderness over the lumbar spine. she has normal seated trunk range of motion, but is tender especially with right lateral bend. Lower extremity strength 5/5 bilateral hip flexors, knee extensors, foot plantar flexion And dorsiflexion. Negative modified straight leg raise ( right-sided straight leg raise reproduces right low back pain). ABDOMEN: Soft, nontender, nondistended, no suprapubic tenderness NEUROLOGIC: sensation is grossly intact in the lower extremities EXTREMITIES: No cyanosis or edema, ft are warm and pink DERMATOLOGIC: no exanthem Initial Vital Signs Initial Vital Signs: Vital Signs Temperature 98.8 F 07/11/18 10:30 Pulse Rate 81 07/11/18 10:30 Respiratory Rate 24 07/11/18 10:30 Blood Pressure 159/104 H 07/11/18 10:30 Pulse Oximetry 96 07/11/18 10:30 <Sarah Mc DO - Last Filed: 07/13/18 08:05> Initial Vital Signs Initial Vital Signs: Vital Signs Temperature 98.8 F 07/11/18 10:30 Pulse Rate 81 07/11/18 10:30 Respiratory Rate 24 07/11/18 10:30 Blood Pressure 159/104 H 07/11/18 10:30 Pulse Oximetry 96 07/11/18 10:30 Course <Vi Boggs PA-C - Last Filed: 07/11/18 21:21> Additional Information: patient did not get relief with initial medications, but had significant improvement with morphine, stating she did get up and walk to restroom and feels like she can take a shower. She already has antinausea meds at home. I talked with her PCP who states she has not previously evaluated her back pain as patient was referred to a pain specialist, but will see her Saturday morning. She was agreeable with patient getting some morphine for the weekend As patient has failed numerous medication trials including gabapentin. Patient is established with [facility], and advised follow-up is definitely needed and probably further imaging with MRI. She does not seem to have any neurologic deficit on exam today, however advised her if she has any acutely worsening symptoms, or new extremity weakness, difficulty urinating etc, needs to return over the weekend and she is agreeable. she has increased pain with walking, though this seems localized to her back. She has some intermittent tingling in her right toes. Needs further evaluation for a typical neurogenic claudication or radicular symptoms. Orders Ordered: Discontinued Medications Methocarbamol (Robaxin) 500 mg PO NOW ONE Stop: 07/11/18 12:32 Last Admin: 07/11/18 12:38 Dose: 500 mg Morphine Sulfate (Morphine) 4 mg SUBCUT NOW ONE Stop: 07/11/18 14:10 Last Admin: 07/11/18 14:14 Dose: 4 mg Ondansetron HCl (Zofran Odt) 4 mg PO NOW ONE Stop: 07/11/18 12:28 Last Admin: 07/11/18 12:32 Dose: 4 mg Oxycodone/Acetaminophen (Percocet 5/325) 1 tab PO NOW ONE Stop: 07/11/18 12:28 Last Admin: 07/11/18 12:32 Dose: 1 tab Vital Signs - 8 hr 07/11/18 14:32 07/11/18 15:31 Pulse Rate 77 69 Respiratory Rate 18 18 Blood Pressure [Right Arm] 149/103 H 141/86 H Pulse Oximetry 96 93 <Sarah Mc DO - Last Filed: 07/13/18 08:05> Orders Ordered: Discontinued Medications Methocarbamol (Robaxin) 500 mg PO NOW ONE Stop: 07/11/18 12:32 Last Admin: 07/11/18 12:38 Dose: 500 mg Morphine Sulfate (Morphine) 4 mg SUBCUT NOW ONE Stop: 07/11/18 14:10 Last Admin: 07/11/18 14:14 Dose: 4 mg Ondansetron HCl (Zofran Odt) 4 mg PO NOW ONE Stop: 07/11/18 12:28 Last Admin: 07/11/18 12:32 Dose: 4 mg Oxycodone/Acetaminophen (Percocet 5/325) 1 tab PO NOW ONE Stop: 07/11/18 12:28 Last Admin: 07/11/18 12:32 Dose: 1 tab Vital Signs - 8 hr 07/11/18 14:32 07/11/18 15:31 Pulse Rate 77 69 Respiratory Rate 18 18 Blood Pressure [Right Arm] 149/103 H 141/86 H Pulse Oximetry 96 93 MDM - Back Pain/Injury <Vi Boggs PA-C - Last Filed: 07/11/18 21:21> Imaging Data lumbar and hip: Radiologist's impression: [address] [address] XRay Report Signed Patient: Kaylyn De Leon [facility]#: [id number] : 1960Acct:[id number] Age/Sex: 57 / FDate of Service: 07/11/18 Loc: ED Accession Number: [id number] Procedure: XR hip w pel if done RT 2V Ordering Provider: Vi Boggs P.A-C PROCEDURE: XR HIP W PEL IF DONE RT 2V INDICATIONS: pain TECHNIQUE: 2 views of the hip were acquired. COMPARISON: [facility], CR, XR LUMBAR SPINE 2-3V, 07/11/2018, 12:06. [facility], CT, CT ABDOMEN PELVIS W CON, 07/09/2018, 14:44. FINDINGS: Bones: No fractures or dislocations. No suspicious bony lesions. The visualized pelvic ring appears intact. Age-appropriate lower lumbar spine degenerative changes are noted. There is mild superior joint space narrowing seen of both hips, with associated remodeling changes with subchondral sclerosis and osteophyte formation. Soft tissues: No suspicious soft tissue calcifications or masses. IMPRESSION: Degenerative changes are seen, without an acute bony abnormality identified. Dictated by: Luis A Amaral M.D. on 07/11/2018 at 12:09 Approved by: Luis A Amaral M.D. on 06/17 [place] [address] XRay Report Signed Patient: Kaylyn De Leon [facility]#: [id number] : 1960Acct:[id number] Age/Sex: 57 / FDate of Service: 07/11/18 Loc: ED Accession Number: [id number] Procedure: XR lumbar spine 2-3V Ordering Provider: Vi Boggs P.A-C PROCEDURE: XR LUMBAR SPINE 2-3V INDICATIONS: low back pain TECHNIQUE: 3 views of the lumbar spine were acquired. COMPARISON: [facility], CR, XR HIP W PEL IF DONE RT 2V, 07/11/2018, 12: 06. [facility], CT, CT ABDOMEN PELVIS W CON, 07/09/2018, 14:44. FINDINGS: Bones: There is moderate dextroconvex lumbar scoliosis. No displaced fractures are seen. No suspicious lytic or blastic lesions are seen. Prominent facet arthropathy is seen, particularly inferiorly. Moderate to severe disc space narrowing can be seen at each lumbar level. 5 nonrib-bearing, lumbar type vertebral bodies are seen. Soft tissues: Overlying bowel gas pattern is normal. No suspicious soft tissue calcifications. IMPRESSION: Moderate dextroconvex lumbar scoliosis and associated degenerative changes. Dictated by: Luis A Amaral M.D. on 07/11/2018 at 12:10 Approved by: Luis A Amaral M.D. on 07/11/2018 at 12:11 Discharge Plan Departure Patient Disposition: Home Clinical Impression: Low back pain potentially associated with radiculopathy, Degenerative disc disease, Scoliosis Discharge Date/Time: 07/11/18 15:35 Interventions: ED Discharge Assessment Last Done: 07/11/18 15:33 Instructions: DI for Low Back Pain Activity Restrictions/Additional Instructions: You should return as we talked about if you have any acutely worsening pain, or new symptoms such as numbness in the groin, inability to urinate, or weakness in your legs. You do need further workup as we discussed. Your x- rays do not show any acute problem, however you are right in that an MRI may be needed to evaluate for disc and spinal cord problems, such as pressure on the spinal cord or a herniated disc. You can take the pain medicine as needed this weekend, but be careful about driving or activities were you need to be alert as it could make you sleepy. You can take the antinausea medicine that you already have as needed. Please follow-up with your PCP Saturday morning at 10 :15 a.m., and also please call Dr. Sumner's office to schedule follow up. Prescriptions: New morphine 15 mg tablet 15 mg PO Q6H PRN (Reason: pain) Qty: 10 RF: 0 No Action citalopram [Celexa] 20 MG tablet 1 tab PO BEDTIME Qty: 0 RF: 0 multivitamin [Multiple Vitamins] 1 EACH tablet 1 tab PO DAILY Qty: 0 RF: 0 calcium polycarbophil [FiberCon] 625 mg Tablet 1 tab PO PRN PRN (Reason: fiber) Qty: 0 RF: 0 cholecalciferol (vitamin D3) [Vitamin D3] 1,000 unit Capsule 1,000 unit PO DAILY Qty: 0 RF: 0 albuterol sulfate [Ventolin HFA] 90 MCG/PUFF HFA aerosol inhaler 2 puff INH PRN PRN (Reason: Shortness Of Breath) Qty: 0 RF: 0 topiramate 100 mg tablet 100 mg PO BID RF: 0 Qvar RediHaler 1 puff Inhalation DIRECTED RF: 0 fexofenadine [Leslie Allergy] 180 mg Tablet 180 mg PO DAILY RF: 0 ondansetron HCl 4 mg tablet 4 mg PO TID-QID PRN (Reason: nausea and vomiting) Qty: 14 RF: 0 Referrals: Tiffanie Miller PA-C [Primary Care Provider] - Nithin Sumner MD [Physician] - <Sarah cM DO - Last Filed: 07/13/18 08:05> Cosign ED Attending Cosignature Attestation: I was immediately available in the department for consultation. This documentation has been reviewed and I agree with assessment and plan. Supervised by Sarah Mc DO
[2018-07-11 12:18] VITALS: BP 146/95; PULSE 76; RESP 16; O2SAT 95
--- NOTE | 2018-07-11 12:27 | DI.RAD.S_ITS ---
PROCEDURE: XR LUMBAR SPINE 2-3V INDICATIONS: low back pain TECHNIQUE: 3 views of the lumbar spine were acquired. COMPARISON: [facility], CR, XR HIP W PEL IF DONE RT 2V, 07/11/2018, 12:06. [facility], CT, CT ABDOMEN PELVIS W CON, 07/09/2018, 14:44. FINDINGS: Bones: There is moderate dextroconvex lumbar scoliosis. No displaced fractures are seen. No suspicious lytic or blastic lesions are seen. Prominent facet arthropathy is seen, particularly inferiorly. Moderate to severe disc space narrowing can be seen at each lumbar level. 5 nonrib-bearing, lumbar type vertebral bodies are seen. Soft tissues: Overlying bowel gas pattern is normal. No suspicious soft tissue calcifications. IMPRESSION: Moderate dextroconvex lumbar scoliosis and associated degenerative changes. Dictated by: Luis A Amaral M.D. on 07/11/2018 at 12:10 Approved by: Luis A Amaral M.D. on 07/11/2018 at 12:11
--- NOTE | 2018-07-11 12:27 | DI.RAD.S_ITS ---
PROCEDURE: XR HIP W PEL IF DONE RT 2V INDICATIONS: pain TECHNIQUE: 2 views of the hip were acquired. COMPARISON: [facility], CR, XR LUMBAR SPINE 2-3V, 07/11/2018, 12:06. [facility], CT, CT ABDOMEN PELVIS W CON, 07/09/2018, 14:44. FINDINGS: Bones: No fractures or dislocations. No suspicious bony lesions. The visualized pelvic ring appears intact. Age-appropriate lower lumbar spine degenerative changes are noted. There is mild superior joint space narrowing seen of both hips, with associated remodeling changes with subchondral sclerosis and osteophyte formation. Soft tissues: No suspicious soft tissue calcifications or masses. IMPRESSION: Degenerative changes are seen, without an acute bony abnormality identified. Dictated by: Luis A Amaral M.D. on 07/11/2018 at 12:09 Approved by: Luis A Amaral M.D. on 07/11/2018 at 12:10
[2018-07-11] MEDS: ONDANSETRON 4 MG ODT PO (12:32)
[2018-07-11] MEDS: OXYCODONE/ACETAMINOPHEN 5/325 TABLET 1 TAB PO (12:32)
[2018-07-11] MEDS: METHOCARBAMOL 500 MG TABLET PO (12:38)
--- NOTE | 2018-07-11 12:39 | PC.NURSE ---
Pt states she wants and IV and IV Medications. States PO meds are not going to do anything for her pain. Informed that provider is aware and there are no orders for Iv at this time.
[2018-07-11 13:09] VITALS: BP 151/99; PULSE 77; RESP 20; O2SAT 97
--- NOTE | 2018-07-11 13:14 | PC.NURSE ---
Pt c/o no change in pain after muscle relaxer and narcotic pain medication. Provider aware and spoke with pt about allowing medication time to work and waiting for xray results. Pt verbalizes understanding
[2018-07-11] MEDS: MORPHINE 4 MG/ML INJ SUBCUT (14:14)
[2018-07-11 14:32] VITALS: BP 149/103; PULSE 77; RESP 18; O2SAT 96
[2018-07-11 15:31] VITALS: BP 141/86; PULSE 69; RESP 18; O2SAT 93
== END 2018-07-11 15:35 | disposition home or self-care (01) ==
PROVIDERS: Emergency Provider Internal Medicine; Family Provider Physician Assistant; PCP Physician Assistant
DX: M54.5 Low back pain (principal); M50.320 Other cervical disc degeneration, mid-cervical region, unspecified level; M41.9 Scoliosis, unspecified
CPT/HCPCS: 72100; 73502; 99283; J2270

== ENCOUNTER → 2018-07-16 07:14 | Outpatient (CLI) | payer OTHER, SELFPAY ==
--- NOTE | 2018-07-16 | DI.MRI.S_ITS ---
PROCEDURE: MR LUMBAR SPINE WO/W CON INDICATIONS: Lumbago with sciatica, right side TECHNIQUE: Noncontrast sagittal T1 spin echo and T2 fast spin echo, sagittal STIR, axial T1 and T2 fast spin echo through the lumbar spine. In cases with scoliosis, additional coronal T2 fast spin echo may be performed. After the administration of contrast, sagittal and axial T1 spin echo with fat saturation through the lumbar spine. COMPARISON: [facility], MR, MR LUMBAR SPINE WO CON, 05/21/2017, 13:52. FINDINGS: Image quality: Excellent. Alignment and curvature: Severe dextroscoliosis is again noted.. Marrow: Marrow is of normal overall signal. Postsurgical changes related to L4-L5 right laminectomy. No acute vertebral body compression fractures. No suspicious marrow enhancement. Spinal cord: Conus medullaris terminates at the L2 level. Visualized spinal cord demonstrates normal signal, without suspicious enhancement. Paraspinous soft tissues: No paravertebral masses or abnormal enhancement. No evidence of greater than expected postoperative granulation tissue. L1-L2: Broad-based posterior disc bulge above stenoses. Mild canal narrowing. Moderate bilateral foraminal stenoses, probably unchanged although limited evaluation given scoliotic curvature. L2-L3: Broad-based posterior disc bulge and bilateral facet arthropathy. Mild central canal narrowing. Severe left foraminal stenosis. [id number] right foraminal narrowing. Overall, the appearance is probably unchanged since the prior study. L3-L4: Broad-based posterior disc bulge and bilateral facet arthropathy. Mild partial effacement of the left and right lateral recesses which is asymmetric, right greater than left. This has is grossly unchanged to minimally progressed on axial images since the prior study dated 05/21/17 and recommend correlation for possible impingement of the descending right L4 nerve root. L4-L5: Broad-based posterior disc bulge and bilateral facet arthropathy is seen. There is grossly unchanged right-sided subarticular narrowing. There is also partial effacement of the left lateral recess. No residual central canal stenosis. Severe bilateral foraminal stenoses, left greater than right. Overall, no interval change. L5-S1: Broad-based posterior disc bulge and bilateral facet arthropathy. Mild central canal narrowing. Minimal partial effacement of the left right lateral recess. Severe right foraminal stenosis. No foraminal stenosis. No interval change. IMPRESSION: Possible mild progression in right L3-L4 subarticular narrowing since the prior study dated 05/21/17. Marked dextroscoliosis as before No suspicious enhancement to suggest greater than expected postoperative granulation tissue. Elsewhere, no interval change as detailed above. Dictated by: Zia Velazquez M.D. on 07/16/2018 at 9:02 Approved by: Zia Velazquez M.D. on 07/16/2018 at 9:32
== END ==
PROVIDERS: Family Provider Physician Assistant; PCP Physician Assistant; Visit Provider Physician Assistant
DX: M51.16 Intervertebral disc disorders with radiculopathy, lumbar region (principal); M51.17 Intervertebral disc disorders with radiculopathy, lumbosacral region; M48.061 Spinal stenosis, lumbar region without neurogenic claudication; M48.07 Spinal stenosis, lumbosacral region; M41.9 Scoliosis, unspecified; M47.26 Other spondylosis with radiculopathy, lumbar region; M47.27 Other spondylosis with radiculopathy, lumbosacral region
CPT/HCPCS: 72158; A9579

== ENCOUNTER 2018-09-01 12:45 | Outpatient (RCR) | payer OTHER, SELFPAY ==
--- NOTE | 2018-08-12 15:00 | PT.OIE ---
Current Diagnoses Low back pain (08/12/18) Muscle weakness (generalized) (08/12/18) Other symptoms and signs involving the musculoskeletal system (08/12/18) Provider Visit Care Team Role Provider Type Tiffanie Miller PA-C Attending Provider Advanced Open End Spinning Operator Family Provider Primary Care Provider Specialty: Internal Medicine Address: [address] [place] [address], [id number] Email: Physical Therapy Initial Evaluation PT-OP-A Visit Information Start: 08/05/18 16:06 Freq: Status: Active Protocol: Document 08/12/18 10:30 LRN (Rec: 08/12/18 11:24 LRN [id number]) Out-Patient Physical Therapy Visit Information Visit Information Visit Type Initial Evaluation Visit Start Time 10:30 Visit Stop Time 11:24 Total Visit Minutes 54 Visit Number 1 Number of FACILITIES SPECIALIST Visits 0 Evaluation Information Evaluation Date 08/12/18 PT-OP-B Current Condition Start: 08/05/18 16:06 Freq: Status: Active Protocol: Document 08/12/18 10:30 LRN (Rec: 08/12/18 11:24 LRN [id number]) Current Condition History of Current Condition Onset Date July 09, 2018 Current Complaints Can't walk/stand long, can't lie R side. Pain R LB, buttock, anter thigh History of Current Condition Pt reports R LBP with occasional buttock and anterior thigh tingling/pain. Her pain is worse in the morning and she is only able to get relief of pain when sitting in a recliner chair. She states she can sit all day comfortably. She only tolerates 5-10 minutes standing and cannot lie on her R side (tolerates L sidelie and supine position well). She complains of R knee pain when in supine. Prior Treatments and Tests Pt reports MRI showed changes with her scoliosis and L3, L4 disc bulge and worsening at her L4-L5 where she had a laminectomy. MRI reports indicates L1-S1 Broad based posterior disc bulges, facet arthropathy, left foraminal stenosis L1-L4, possible impingement of descending R L4 nerve root, & L5-S1 right foraminal stenosis. Pt reports CAT Scan done with contrast showed no kidney stones. Future Testing and Treatments Planned Steroid Injection to back - . Developmental History Developmental History Pt reports insidious onset of R back pain. States she woke up to urinate and had what she felt was like kidney stone pain of R Groin and lower back pain. She gets relief of pain with sitting. Next day she used ice/heat without relief. Was given a shot of morphine but still had pain. She states she begged for pain medications from ERIC Butler (primary care provider) but was not given any, and instead an MRI was ordered. She states Dr Del Valle, in [place] saw L3-L4, L4-L5 progression of scoliosis. Dr Goodman gave her morphine and then referred her to physical therapy. She reports Dr. Del Valle prescribed a pain medication patch that she is using instead of morphine and she is now able to somewhat manage at home. Treatment Goals Patient/Caregiver Goals Pt goal is to 1) decrease pain to her prior level of 2-3/10 with Tylenol, and 2) improve her back to avoid surgery. 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 Daily R LBP and sometimes middle back, controlled with tylenol Baseline Function- Recreation/Hobbies Walked on TM with some pain with Tylenol Baseline Function- Other Watching 2 year old granddaugher 2-3 days a week. Current Functional Impairments (Reported) Functional Limitations- ADL's Limited with all ADLS Functional Limitations- Mobility/Gait Limited to office visits in PM only due to pain worse in AM. 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 Functional Limitations- Recreation/ Can't walk for shopping. Hobbies Personal Factors Other Personal Factors That May Effect PMH per pt: Severe Scoliosis, Therapy/Recovery Laminectomy (2010) worsening, Cervical discs replaced in neck - 2017. PT-OP-C Subjective Start: 08/05/18 16:06 Freq: Status: Active Protocol: Document 08/12/18 10:30 LRN (Rec: 08/14/18 08:48 LRN [id number]) Patient Questionnaires Oswestry Low Back Index Oswestry Score 37 Oswestry Impairment 20 to 39% Impaired (Score 20- 39) PT-OP-F Manual Assessment Start: 08/05/18 16:06 Freq: Status: Active Protocol: Document 08/12/18 10:30 LRN (Rec: 08/14/18 08:48 LRN [id number]) Manual Assessments Soft Tissue Assessment Soft Tissue Mobility Assessment Tenderness along the low back and upper gluteals. PT-OP-G Mobility & Gait Start: 08/05/18 16:06 Freq: Status: Active Protocol: Document 08/12/18 10:30 LRN (Rec: 08/14/18 08:50 LRN [id number]) OP Gait Assessment Gait Gait Assistance Required: Independent Distance (Feet) 50 Able to Maintain Weight Bearing Status Yes During Gait Assistive Devices Assistive Device None Gait Deviations General Gait Pattern Flexed Trunk Lateral Trunk Lean Factors Limiting Gait Function Factors Limiting Gait Function Pain Comments Gait Comments Heavy trunk tilt to R causing increased trunk sway. PT-OP-H Neuro Start: 08/05/18 16:06 Freq: Status: Active Protocol: Document 08/12/18 10:30 LRN (Rec: 08/14/18 08:48 LRN [id number]) Sensation Evaluation Gross Sensation Gross Sensation WNL Deep Tendon Reflex & Clonus Assessment Deep Tendon Reflex Bilateral Achilles Deep Tendon Reflex 0 Absent Bilateral Patellar Deep Tendon Reflex 1+ Diminished PT-OP-J Posture/Palpation/Skin Start: 08/05/18 16:06 Freq: Status: Active Protocol: Document 08/12/18 10:30 LRN (Rec: 08/14/18 08:48 LRN [id number]) Posture Evaluation Comments Posture Comments In standing: R Trunk shift, Scoliosis curve in the lumbar region upper apex on left and lower on right, lower R scapula, shoulder, & Iliac Crest. R lower gluteal fold; Forward bent at hips ~10 deg's and pronation of feet. PT-OP-K Range of Motion Start: 08/05/18 16:06 Freq: Status: Active Protocol: Document 08/12/18 10:30 LRN (Rec: 08/14/18 08:48 LRN [id number]) Lumbar Spine Range of Motion Lumbar Spine Active Degrees Testing Position Standing Flexion 40 Extension 15 Rotation Left 50 Rotation Right 40 Lateral Flexion Left 10 Lateral Flexion Right 12 Comments Flex is with 30 deg's hip flexion. Ext is with 15 deg's hip extension. Rotation ROM is approximate. Hip Goniometric Range of Motion Hip Measured in Degrees Right Passive Testing Position Supine Straight Leg Raise 95 Internal Rotation 45 External Rotation 95 Left Passive Testing Position Supine Straight Leg Raise 85 Internal Rotation 30 External Rotation 75 PT-OP-L Special Tests Start: 08/05/18 16:06 Freq: Status: Active Protocol: Document 08/12/18 10:30 LRN (Rec: 08/14/18 08:48 LRN [id number]) Special Tests Lumbar Spine Special Tests Straight Leg Raise Test Results 75 deg's left, 95 deg's right Comments Positive neural tension left. PT-OP-M Strength Start: 08/05/18 16:06 Freq: Status: Active Protocol: Document 08/12/18 10:30 LRN (Rec: 08/14/18 08:48 LRN [id number]) Hip Strength Hip Manual Muscle Testing Right Flexion (L2) 1 Trace Extension (S1) 2+ Poor+ Abduction 5 Normal Adduction 3 Fair Left Flexion (L2) 2 Poor Extension (S1) 2- Poor- Abduction 5 Normal Adduction 3 Fair PT-OP-Q Treatments Start: 08/05/18 16:06 Freq: Status: Active Protocol: Document 08/12/18 10:30 LRN (Rec: 08/14/18 08:48 LRN [id number]) Therapeutic Exercises Prone Exercises FRANCISCA Prone Exercise Name Prone on Elbows Side bilateral Reps/Minutes 10x Standing Exercises Lateral Trunk Shift Standing Exercise Name R shoulder against wall Side right Self-Care/Home Management Treatment Education Patient Education Home Exercise Program Other Education Issued and reviewed HEP: R lateral trunk shift. Pt I/S in FRANCISCA ex 10 reps. PT-OP-T Assessment and Plan Start: 08/05/18 16:06 Freq: Status: Active Protocol: Document 08/12/18 10:30 LRN (Rec: 08/12/18 11:24 LRN [id number]) Physical Therapy Assessment Rehab Potential Rehabilitation Potential Good Evaluation Complexity Number of Personal Factors/Comorbidities 1-2 Number of Body Systems Impaired 3 Clinical Presentation at Evaluation Evolving Impairments Impairments Activity Tolerance Functional Activities Pain Posture ROM Soft Tissue Mobility Strength Other Impairments Severe Scoliosis. Other Concerns Age Related Concerns Effect of injury on work and home. Barriers to Rehabilitation Scoliosis, pt reported need for pain medication. Goals Three Impairment Pt is unable to tolerate walking > 5-10 minutes Assistance Coordinator Goal (LTG) Pt will be able to tolerate grocery shopping > 10 minutes. LTG Duration 10/16/2018 Two Impairment Pain limiting positional tolerance Senior Care Goal (LTG) Pt will be able stand 15 minutes or greater for functional activities (cooking ) with tolerable pain (pain no greater than 3/10). LTG Duration 10/16/2018 One Impairment Pt lacks independent home exercise program Senior Care Goal (LTG) Pt will be independent with self care HEP and scoliosis HEP to minimize progression of scoliosis. LTG Duration 10/16/2018 Assessment Summary Assessment Pt presents with variable signs of neurological involvement of her low back pain. She demonstrated a + PSLR on the left indicating neural tension, but did show muscle weakness of her R Tibialis Posterior (L5) and weakness of R > L hip flexors (L1-L2). She has decreased Patellar reflex bilaterally and no response with Achilles DTR bilaterally. She does demonstrate a lateral trunk shift to the right, that would be consistent with a left Lumbar disc bulge; therefore the trunk shift is more likely associated to her scoliosis. It is interesting that sitting is her most comfortable position and that she tolerated L sidelie well. Decreased standing is as expected. The pt will benefit from skilled physical therapy for manual therapy, therapeutic exercise, and education for proper body mechanics, posturing and home ex's to manage her pain. Physical Therapy Plan Frequency and Duration Frequency of Treatment 2x/Week Plan of Care Start Date 08/12/18 Plan of Care End Date 10/16/18 Therapeutic Interventions Therapeutic Interventions Aquatic Therapy Gait Training Home Exercise Program Manual Therapy Neuromuscular Re-education Patient/Caregiver Education Self-Care/Home Management Soft Tissue Mobilization Therapeutic Exercises Modalities Cold Pack/Ice Massage Hot Packs Next Visit Focus/Plan Next Note Type Treatment Note Next Visit Plan Review issued HEP of lateral trunk shift and FRANCISCA. Issue HEP of FRANCISCA ex and start scoliosis exercises. STM, lumbar traction, postural & body mechanics training. End CP or MH and Avoid E-Stim in area of laminectomy if hardware present.
--- NOTE | 2018-09-01 15:29 | PT.OTN ---
Current Diagnoses Low back pain (09/01/18) Physical Therapy Treatment Note PT-OP-A Visit Information Start: 08/05/18 16:06 Freq: Status: Active Protocol: Document 09/01/18 12:47 LRN (Rec: 09/01/18 15:27 LRN [id number]) Out-Patient Physical Therapy Visit Information Visit Information Visit Type Treatment Note Visit Start Time 12:47 Visit Stop Time 13:40 Total Visit Minutes 53 Visit Number 5 Number of VACUUM FRAME OPERATOR Visits 0 Evaluation Information Evaluation Date 08/12/18 PT-OP-B Current Condition Start: 08/05/18 16:06 Freq: Status: Active Protocol: Document 08/12/18 10:30 LRN (Rec: 08/12/18 11:24 LRN [id number]) Current Condition History of Current Condition Onset Date July 09, 2018 Current Complaints Can't walk/stand long, can't lie R side. Pain R LB, buttock, anter thigh History of Current Condition Pt reports R LBP with occasional buttock and anterior thigh tingling/pain. Her pain is worse in the morning and she is only able to get relief of pain when sitting in a recliner chair. She states she can sit all day comfortably. She only tolerates 5-10 minutes standing and cannot lie on her R side (tolerates L sidelie and supine position well). She complains of R knee pain when in supine. Prior Treatments and Tests Pt reports MRI showed changes with her scoliosis and L3, L4 disc bulge and worsening at her L4-L5 where she had a laminectomy. MRI reports indicates L1-S1 Broad based posterior disc bulges, facet arthropathy, left foraminal stenosis L1-L4, possible impingement of descending R L4 nerve root, & L5-S1 right foraminal stenosis. Pt reports CAT Scan done with contrast showed no kidney stones. Future Testing and Treatments Planned Steroid Injection to back - . Developmental History Developmental History Pt reports insidious onset of R back pain. States she woke up to urinate and had what she felt was like kidney stone pain of R Groin and lower back pain. She gets relief of pain with sitting. Next day she used ice/heat without relief. Was given a shot of morphine but still had pain. She states she begged for pain medications from ERIC Butler (primary care provider) but was not given any, and instead an MRI was ordered. She states Dr Del Valle, in [place] saw L3-L4, L4-L5 progression of scoliosis. Dr Goodman gave her morphine and then referred her to physical therapy. She reports Dr. Del Valle prescribed a pain medication patch that she is using instead of morphine and she is now able to somewhat manage at home. Treatment Goals Patient/Caregiver Goals Pt goal is to 1) decrease pain to her prior level of 2-3/10 with Tylenol, and 2) improve her back to avoid surgery. 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 Daily R LBP and sometimes middle back, controlled with tylenol Baseline Function- Recreation/Hobbies Walked on TM with some pain with Tylenol Baseline Function- Other Watching 2 year old granddaugher 2-3 days a week. Current Functional Impairments (Reported) Functional Limitations- ADL's Limited with all ADLS Functional Limitations- Mobility/Gait Limited to office visits in PM only due to pain worse in AM. 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 Functional Limitations- Recreation/ Can't walk for shopping. Hobbies Personal Factors Other Personal Factors That May Effect PMH per pt: Severe Scoliosis, Therapy/Recovery Laminectomy (2010) worsening, Cervical discs replaced in neck - 2017. PT-OP-C Subjective Start: 08/05/18 16:06 Freq: Status: Active Protocol: Document 09/01/18 12:47 LRN (Rec: 09/01/18 13:34 LRN [id number]) OP-PT Subjective Patient Comments Patient Comments Sadler good Saturday, has not worn a shoe lift, next morning , felt soreness in thighs and as day progressed felt burning pain in R groin, buttock and knees burning pain . Sat all day in a recliner and the next day was worse. Muscles in thigh were sore, but pain across low back and the R upper gluteals. States post therapy she feels good, pain rated 1-2/10. PT-OP-F Manual Assessment Start: 08/05/18 16:06 Freq: Status: Active Protocol: Document 08/12/18 10:30 LRN (Rec: 08/14/18 08:48 LRN [id number]) Manual Assessments Soft Tissue Assessment Soft Tissue Mobility Assessment Tenderness along the low back and upper gluteals. PT-OP-G Mobility & Gait Start: 08/05/18 16:06 Freq: Status: Active Protocol: Document 08/12/18 10:30 LRN (Rec: 08/14/18 08:50 LRN [id number]) OP Gait Assessment Gait Gait Assistance Required: Independent Distance (Feet) 50 Able to Maintain Weight Bearing Status Yes During Gait Assistive Devices Assistive Device None Gait Deviations General Gait Pattern Flexed Trunk Lateral Trunk Lean Factors Limiting Gait Function Factors Limiting Gait Function Pain Comments Gait Comments Heavy trunk tilt to R causing increased trunk sway. PT-OP-H Neuro Start: 08/05/18 16:06 Freq: Status: Active Protocol: Document 08/12/18 10:30 LRN (Rec: 08/14/18 08:48 LRN [id number]) Sensation Evaluation Gross Sensation Gross Sensation WNL Deep Tendon Reflex & Clonus Assessment Deep Tendon Reflex Bilateral Achilles Deep Tendon Reflex 0 Absent Bilateral Patellar Deep Tendon Reflex 1+ Diminished PT-OP-J Posture/Palpation/Skin Start: 08/05/18 16:06 Freq: Status: Active Protocol: Document 08/12/18 10:30 LRN (Rec: 08/14/18 08:48 LRN [id number]) Posture Evaluation Comments Posture Comments In standing: R Trunk shift, Scoliosis curve in the lumbar region upper apex on left and lower on right, lower R scapula, shoulder, & Iliac Crest. R lower gluteal fold; Forward bent at hips ~10 deg's and pronation of feet. PT-OP-K Range of Motion Start: 08/05/18 16:06 Freq: Status: Active Protocol: Document 08/12/18 10:30 LRN (Rec: 08/14/18 08:48 LRN [id number]) Lumbar Spine Range of Motion Lumbar Spine Active Degrees Testing Position Standing Flexion 40 Extension 15 Rotation Left 50 Rotation Right 40 Lateral Flexion Left 10 Lateral Flexion Right 12 Comments Flex is with 30 deg's hip flexion. Ext is with 15 deg's hip extension. Rotation ROM is approximate. Hip Goniometric Range of Motion Hip Measured in Degrees Right Passive Testing Position Supine Straight Leg Raise 95 Internal Rotation 45 External Rotation 95 Left Passive Testing Position Supine Straight Leg Raise 85 Internal Rotation 30 External Rotation 75 PT-OP-L Special Tests Start: 08/05/18 16:06 Freq: Status: Active Protocol: Document 08/12/18 10:30 LRN (Rec: 08/14/18 08:48 LRN [id number]) Special Tests Lumbar Spine Special Tests Straight Leg Raise Test Results 75 deg's left, 95 deg's right Comments Positive neural tension left. PT-OP-M Strength Start: 08/05/18 16:06 Freq: Status: Active Protocol: Document 08/12/18 10:30 LRN (Rec: 08/14/18 08:48 LRN [id number]) Hip Strength Hip Manual Muscle Testing Right Flexion (L2) 1 Trace Extension (S1) 2+ Poor+ Abduction 5 Normal Adduction 3 Fair Left Flexion (L2) 2 Poor Extension (S1) 2- Poor- Abduction 5 Normal Adduction 3 Fair PT-OP-Q Treatments Start: 08/05/18 16:06 Freq: Status: Active Protocol: Document 09/01/18 12:47 LRN (Rec: 09/01/18 15:24 LRN [id number]) Therapeutic Exercises Supine Exercises DLS: Heel slides Side bilateral Reps/Minutes 5' Comments Hooklie: Single leg slides Dynamic Lumbar Stabilization (DLS): Arm lifts Side bilateral Reps/Minutes 10' Comments Hooklie: Single arm lifts, Double arm lifts with training for stabilization Therapeutic Activity Therapeutic Activity Transfer training Name Sit to stand with proper hip hinge. Reps/Minutes 2' Comments Reviewed. Manual Therapy Treatment Manual Traction Lumbar Details Manual, with Belt and with traction at lower leg. Reps/Duration 8' Self-Care/Home Management Treatment Education Patient Education Body Mechanics Home Exercise Program Pain Management Posture Activities Self-Care/Home Management Activities Lengthy pt education in proper back care for positioning for pain relief, self treatment for pain relief, reviewed proper body mechanics for sit< =>supine. Reviewed self lumbar traction with chair, spousal assist for lumbar traction with emphasis on less is more and minimal pull with traction and only for pain relief, followed by moving and regular activity. PT-OP-R Modalities Start: 08/05/18 16:06 Freq: Status: Active Protocol: Document 09/01/18 12:47 LRN (Rec: 09/01/18 15:07 LRN [id number]) Electric Stimulation Electric Stimulation Interferential Current (IFC) Body Location Mid back to above well healed lumbar scar Duration (Minutes) 10 Intensity 14 Target/Sweep Sweep Patient Position Sidelying Combined With Heat/Cold Cold Pack Comments Cryotherapy most helpful at home; therefore cryotherapy, L Sidelye with folded towel supporting lateral side curvature. PT-OP-T Assessment and Plan Start: 08/05/18 16:06 Freq: Status: Active Protocol: Document 09/01/18 12:47 LRN (Rec: 09/01/18 15:24 LRN [id number]) Physical Therapy Assessment Assessment Summary Assessment Pt in flare up, possibly from sitting all day in a recliner chair, and wrapping gifts at table. + response to treatment with pain reduction to 1-2/10 after therapy. Pt has improved in lumbar awareness of core stability and could identify loss of stability in supine with folded towel as support for feedback. Physical Therapy Plan Frequency and Duration Frequency of Treatment 2x/Week Plan of Care Start Date 08/12/18 Plan of Care End Date 10/16/18 Next Visit Focus/Plan Next Note Type Treatment Note Next Visit Plan Progress scoliosis ex's into standing and DLS ex's. STM, & lumbar traction as needed for pain, discuss other body mechanics training to problem solve pain onset at home. End CP and E-Stim (premod or higher than laminectomy: IFES) if needed. [ End ]
--- NOTE | 2018-09-25 16:31 | PT.OPDS ---
Current Diagnoses Low back pain (09/01/18) Provider Visit Care Team Role Provider Type Tiffanie Miller PA-C Attending Provider Advanced Sheriff Family Provider Primary Care Provider Specialty: Internal Medicine Address: [address] [place] [address], [id number] Email: Visit Number Visit Number 5 Discharge Summary PT-OP-B Current Condition Start: 08/05/18 16:06 Freq: Status: Active Protocol: Document 08/12/18 10:30 LRN (Rec: 08/12/18 11:24 LRN [id number]) Current Condition History of Current Condition Onset Date July 09, 2018 Current Complaints Can't walk/stand long, can't lie R side. Pain R LB, buttock, anter thigh History of Current Condition Pt reports R LBP with occasional buttock and anterior thigh tingling/pain. Her pain is worse in the morning and she is only able to get relief of pain when sitting in a recliner chair. She states she can sit all day comfortably. She only tolerates 5-10 minutes standing and cannot lie on her R side (tolerates L sidelie and supine position well). She complains of R knee pain when in supine. Prior Treatments and Tests Pt reports MRI showed changes with her scoliosis and L3, L4 disc bulge and worsening at her L4-L5 where she had a laminectomy. MRI reports indicates L1-S1 Broad based posterior disc bulges, facet arthropathy, left foraminal stenosis L1-L4, possible impingement of descending R L4 nerve root, & L5-S1 right foraminal stenosis. Pt reports CAT Scan done with contrast showed no kidney stones. Future Testing and Treatments Planned Steroid Injection to back - . Developmental History Developmental History Pt reports insidious onset of R back pain. States she woke up to urinate and had what she felt was like kidney stone pain of R Groin and lower back pain. She gets relief of pain with sitting. Next day she used ice/heat without relief. Was given a shot of morphine but still had pain. She states she begged for pain medications from ERIC Butler (primary care provider) but was not given any, and instead an MRI was ordered. She states Dr Del Valle, in [place] saw L3-L4, L4-L5 progression of scoliosis. Dr Goodman gave her morphine and then referred her to physical therapy. She reports Dr. Del Valle prescribed a pain medication patch that she is using instead of morphine and she is now able to somewhat manage at home. Treatment Goals Patient/Caregiver Goals Pt goal is to 1) decrease pain to her prior level of 2-3/10 with Tylenol, and 2) improve her back to avoid surgery. PT-OP-T Assessment and Plan Start: 08/05/18 16:06 Freq: Status: Active Protocol: Document 09/25/18 16:22 LRN (Rec: 09/25/18 16:31 LRN [id number]) Physical Therapy Assessment Goals Three Impairment Pt is unable to tolerate walking > 5-10 minutes Stock Blender Goal (LTG) Pt will be able to tolerate grocery shopping > 10 minutes. LTG Duration 10/16/2018 Two Impairment Pain limiting positional tolerance Mcfp Goal (LTG) Pt will be able stand 15 minutes or greater for functional activities (cooking ) with tolerable pain (pain no greater than 3/10). LTG Duration 10/16/2018 (08/29/18: GOAL MET) One Impairment Pt lacks independent home exercise program Stock Blender Goal (LTG) Pt will be independent with self care HEP and scoliosis HEP to minimize progression of scoliosis. LTG Duration 10/16/2018 Assessment Summary Assessment Per phone conversation the pt states she is not able to continue therapy due to being in deductible phase of her insurance and can't afford therapy. She was last seen and demonstrated a positive response to therapy. She did not attend her last 4 scheduled appointments. The pt was not available for final assessment. Physical Therapy Plan Discharge Physical Therapy Discharge Reasons No Longer Attending PT Discharge Comments Pt did not complete her physical therapy program due to financial constraints.
== END 2018-11-05 10:18 ==
LOC: PHYS 12:45
PROVIDERS: Family Provider Physician Assistant; PCP Physician Assistant; Visit Provider Physician Assistant
DX: M54.5 Low back pain (principal)
CPT/HCPCS: 97032; 97110; 97140; 97162; 97530; 97535

== ENCOUNTER → 2019-01-09 12:26 | Outpatient (CLI) | payer OTHER, SELFPAY ==
--- NOTE | 2019-01-09 | DI.RAD.S_ITS ---
PROCEDURE: XR T AND L SPINE 2 TO 3 VIEWS INDICATIONS: SPINAL STENOSIS LUMBAR REGION W/ NEUROGENIC CLAUDICATION TECHNIQUE: 2 views acquired of the thoracolumbar spine. COMPARISON: None. FINDINGS: Bones: No acute fractures or dislocations. Multilevel degenerative endplate sclerosis and spurring. Diffuse facet arthropathy. Diffuse osteopenia. Dextroscoliosis of lumbar spine measuring approximately 43? from the inferior endplate of T12 to the superior endplate of L5. There is borderline positive coronal balance. Neutral sagittal balance. Soft tissues: No suspicious soft tissue calcifications. IMPRESSION: Marked lumbar dextroscoliosis from T12-L5. Dictated by: Zia Velazquez M.D. on 01/09/2019 at 13:07 Approved by: Zia Velazquez M.D. on 01/09/2019 at 13:11
--- NOTE | 2019-01-09 | DI.MG.S_ITS ---
BILATERAL DIGITAL SCREENING MAMMOGRAM 3D/2D WITH CAD: 01/09/2019 CLINICAL: Routine screening. Comparison is made to exams dated: 08/03/2015 mammogram, 04/19/2014 mammogram, and 10/05/2013 mammogram - [facility]. The tissue of both breasts is heterogeneously dense. This may lower the sensitivity of mammography. Current study was also evaluated with a Computer Aided Detection (CAD) system. There are benign calcifications in both breasts. There also is a benign biopsy clip in both breasts. No significant masses, calcifications, or other findings are seen in either breast. There has been no significant interval change. IMPRESSION: There is no mammographic evidence of malignancy. A 1 year screening mammogram is recommended. This exam was interpreted at Station ID: [id number]. NOTE: For mammograms, a report in lay terms will be sent to the patient. Approximately 15% of breast malignancies will not be visualized mammographically. In the management of a palpable breast mass, a negative mammogram must not discourage biopsy of a clinically suspicious lesion. Electronically Signed By: Regan still/alicia:01/09/2019 13:08:10 letter sent: Normal Exam ACR BI-RADS Category 2: Benign Finding(s) 3342F
== END ==
LOC: MAMMO 12:27
PROVIDERS: Family Provider Physician Assistant; PCP Physician Assistant; Visit Provider Physician Assistant
DX: Z12.31 Encounter for screening mammogram for malignant neoplasm of breast (principal); M48.062 Spinal stenosis, lumbar region with neurogenic claudication; M41.85 Other forms of scoliosis, thoracolumbar region
CPT/HCPCS: 72082; 77063; 77067

== ENCOUNTER → 2019-07-13 18:34 | Outpatient (ROUT) | payer OTHER, SELFPAY ==
[2019-07-13 18:56] LABS: Add Manual Diff / Slide Review NO; Basophils Absolute Auto 100 /uL (0-100); Eosinophils Absolute Auto 100 /uL (0-450); Eosinophils Percent Auto 1.6 % (2-4); Hematocrit 40.5 % (36-46); Hemoglobin 13.8 g/dL (12.0-16.0); Lymphocytes Absolute Auto 2900 /uL (1100-4500); Lymphocytes Percent Auto 33.8 % (25-40); Mean Corpuscular Hemoglobin 33.4 PG (26-34); Mean Corpuscular Volume 98.3 fL (80-100); Monocytes Absolute Auto 500 /uL (0-900); Monocytes Percent Auto 5.3 % (3-14); Neutrophils Absolute Auto 5000 /uL (1500-7000); Neutrophils Percent Auto 58.3 % (50-75); Platelet Count 242 X10^3/uL (150-400); Red Blood Cell Count 4.12 X10^6/uL (4.0-5.2); Red Cell Distribution Width 12.4 % (11.6-14.8); White Blood Cell Count 8.6 X10^3/uL (4.5-11.0)
[2019-07-13 19:10] LABS: Alanine Aminotransferase 8 IU/L (9-52); Albumin 4.5 g/dL (3.5-5.0); Albumin Globulin Ratio 1.6 (1.0-2.8); Alkaline Phosphatase 82 U/L (38-126); Amylase 98 U/L (30-110); Aspartate Aminotransferase 27 IU/L (14-36); Bilirubin Total 0.5 mg/dL (0.2-1.3); Blood Urea Nitrogen 9 mg/dL (7-17); Calcium 9.5 mg/dL (8.4-10.2); Carbon Dioxide 26 mmol/L (22-32); Chloride 106 mmol/L (98-107); Estimated Glomerular Filt Rate > 60.0 mL/min (>60); Globulin 2.9 g/dL (1.7-4.1); Glucose 94 mg/dL (70-100); HEMOLYSIS 20 (0-50); Lipase 84 U/L (23-300); Potassium 3.8 mmol/L (3.4-5.1); Sodium 140 mmol/L (137-145); Total Protein 7.4 g/dL (6.3-8.2)
== END ==
PROVIDERS: Family Provider Physician Assistant; PCP Physician Assistant; Visit Provider Physician Assistant
DX: R10.30 Lower abdominal pain, unspecified (principal); R19.7 Diarrhea, unspecified
CPT/HCPCS: 80053; 82150; 83690; 85025

== ENCOUNTER → 2019-07-15 11:00 | Outpatient (CLI) | payer OTHER, SELFPAY ==
--- NOTE | 2019-07-15 12:23 | DI.CT.S_ITS ---
PROCEDURE: CT ABDOMEN PELVIS W CON INDICATIONS: LOW ABD PAIN TECHNIQUE: After the administration of oral and intravenous contrast, 5 mm thick sections acquired from the diaphragms to the symphysis. 5 mm thick coronal and sagittal reformats were performed. For radiation dose reduction, the following was used: automated exposure control, adjustment of mA and/or kV according to patient size. COMPARISON: [facility], CT, CT ABDOMEN PELVIS W CON, 07/09/2018, 14:44. FINDINGS: Image quality: Excellent. ABDOMEN: Lung bases: Lung bases are clear. Heart size is normal. Solid organs: Liver is normal in size and enhancement. Gallbladder appears normal without definite stones. The common duct is dilated up to 10 mm and tapers within the pancreatic head. No intrahepatic biliary dilatation. The pancreatic duct is nondilated Pancreas enhances normally. Spleen is normal in size and enhancement. No adrenal nodules. Kidneys are normal in size and enhancement, without hydronephrosis. Peritoneum and bowel: Stomach, small bowel, and colon loops are normal in caliber and wall thickness. Increased quantity of solid stool present throughout redundant descending colon. Mild diverticula are seen. No pericolonic inflammation. No free fluid or air. Nodes and vessels: No retroperitoneal or mesenteric adenopathy. Aorta and inferior vena cava are normal in caliber. Moderate atherosclerotic calcification. Miscellaneous: No ventral hernias. PELVIS: Genitourinary: Bladder wall thickness is normal. Uterus and ovaries appear normal. Miscellaneous: No inguinal hernias or adenopathy. Bones: Moderate rightward rotoscoliosis. No suspicious bony lesions. No vertebral body compression fractures. IMPRESSION: 1. New common duct dilatation. Correlate with LFTs and consider right upper quadrant ultrasound or MRCP imaging if these are abnormal. 2. Increased quantity of retained solid stool no bowel obstruction. 3. No evidence of obstructive uropathy. Dictated by: Shanti Shaver M.D. on 07/15/2019 at 13:58 Approved by: Shanti Shaver M.D. on 07/15/2019 at 14:08
== END ==
PROVIDERS: Family Provider Physician Assistant; PCP Physician Assistant; Visit Provider Physician Assistant
DX: R10.30 Lower abdominal pain, unspecified (principal); K83.8 Other specified diseases of biliary tract
CPT/HCPCS: 74177; Q9967

== ENCOUNTER → 2019-07-16 09:46 | Outpatient (CLI) | payer OTHER, SELFPAY | PROVIDERS: PCP Physician Assistant; Visit Provider Physician Assistant | DX: R10.30 Lower abdominal pain, unspecified (principal); R19.7 Diarrhea, unspecified | CPT/HCPCS: 87045; 87899 ==

== ENCOUNTER → 2019-07-20 07:46 | Outpatient (CLI) | payer OTHER, SELFPAY ==
--- NOTE | 2019-07-20 | DI.US.S_ITS ---
PROCEDURE: US ABDOMEN LIMITED INDICATIONS: DILATED COMMON BILE DUCT ON CT TECHNIQUE: Real-time scanning was performed of the abdominal and retroperitoneal organs, with image documentation. COMPARISON: [facility], CT, CT ABDOMEN PELVIS W CON, 07/15/2019, 12:08. FINDINGS: Liver: Liver is normal in size and homogeneous in echotexture. Gallbladder: The gall bladder wall measures 1.6 mm in diameter. No stones, sludge, pericholecystic fluid, or sonographic Ramirez sign. Biliary ducts: Intrahepatic bile ducts are non-dilated. Extrahepatic bile duct caliber measures 10.2 mm. Normal is 6-7 mm or less in diameter, or 10 mm or less post-cholecystectomy. Pancreas: Visualized portions of the pancreas are sonographically normal. Spleen: Spleen is normal in size and homogeneous in echotexture. IMPRESSION: 1. Dilatation of the common bile duct. No masses or stones are visualized where insonated. However, if further characterization is warranted MRCP is recommended to further evaluate the bile duct. 2. No cholelithiasis or findings to suggest acute cholecystitis. Dictated by: Jessie Gonzales M.D. on 07/20/2019 at 11:03 Approved by: Jessie Gonzales M.D. on 07/20/2019 at 11:06
== END ==
PROVIDERS: PCP Physician Assistant; Visit Provider Physician Assistant
DX: K83.8 Other specified diseases of biliary tract (principal); R10.84 Generalized abdominal pain
CPT/HCPCS: 76705

== ENCOUNTER 2020-06-21 07:13 | Observation (INO) | payer OTHER, SELFPAY ==
[2020-06-21] VITALS (14 sets, daily range): BP systolic 117–190; BP diastolic 70–114; PULSE 74–104; RESP 12–27; TEMP 36.4–36.9; O2SAT 92–98; BMI 23.6
--- NOTE | 2020-06-21 07:17 | DI.RAD.S_ITS ---
PROCEDURE: XR CHEST 1V INDICATIONS: SOB TECHNIQUE: One view of the chest was acquired. COMPARISON: None. FINDINGS: Surgical changes and devices: None. Lungs and pleura: Lungs are clear. No pleural effusions or pneumothorax. Mediastinum: Mediastinal contours appear normal. Heart size is normal. Bones and chest wall: No suspicious bony lesions. Overlying soft tissues appear unremarkable. IMPRESSION: Normal for age, source of current shortness of breath symptoms is not seen. Dictated by: Josué Burns M.D. on 06/21/2020 at 8:33 Approved by: Josué Burns M.D. on 06/21/2020 at 8:34
[2020-06-21 07:45] LABS: Add Manual Diff / Slide Review NO; Basophils Absolute Auto 100 /uL (0-100); Basophils Percent Auto 1.4 % (0-2); Eosinophils Absolute Auto 300 /uL (0-450); Eosinophils Percent Auto 3.6 % (2-4); Hematocrit 38.6 % (36-46); Hemoglobin 13.4 g/dL (12.0-16.0); Lymphocytes Absolute Auto 2900 /uL (1100-4500); Lymphocytes Percent Auto 34.5 % (25-40); Mean Corpuscular HGB Conc 34.6 % (30-36); Mean Corpuscular Volume 95.3 fL (80-100); Monocytes Absolute Auto 500 /uL (0-900); Monocytes Percent Auto 5.9 % (3-14); Neutrophils Absolute Auto 4500 /uL (1500-7000); Neutrophils Percent Auto 54.6 % (50-75); Platelet Count 289 X10^3/uL (150-400); Red Blood Cell Count 4.05 X10^6/uL (4.0-5.2); Red Cell Distribution Width 12.5 % (11.6-14.8); White Blood Cell Count 8.3 X10^3/uL (4.5-11.0)
[2020-06-21 08:01] LABS: Alanine Aminotransferase 18 IU/L (<35); Albumin 4.4 g/dL (3.5-5.0); Albumin Globulin Ratio 1.4 (1.0-2.8); BUN Creatinine Ratio 26.3 (6-22); Bilirubin Total 0.4 mg/dL (0.2-1.3); Blood Urea Nitrogen 15 mg/dL (7-17); Carbon Dioxide 25 mmol/L (22-32); Creatine Kinase 237 U/L (30-135); Estimated Glomerular Filt Rate > 60.0 mL/min (>60); Globulin 3.1 g/dL (1.7-4.1); Glucose 92 mg/dL (70-100); Lipase 443 U/L (23-300); Sodium 140 mmol/L (137-145); Total Protein 7.5 g/dL (6.3-8.2)
[2020-06-21 08:08] LABS: COVID19 -Nasal RAPID Negative (Negative)
[2020-06-21 08:12] LABS: Alkaline Phosphatase 81 U/L (38-126); Aspartate Aminotransferase 27 IU/L (14-36); Chloride 108 mmol/L (98-107); Potassium 3.9 mmol/L (3.4-5.1); Troponin I < 0.012 ng/mL (0.01-0.034)
[2020-06-21 08:16] LABS: Procalcitonin < 0.05 ng/mL (<0.5)
--- NOTE | 2020-06-21 08:24 | ED.GENADULT ---
HPI - General Adult General Chief complaint: Shortness of Breath/Dyspnea Stated complaint: SHORTNESS OF BREATH,CHEST IS HEAVY Time Seen by Provider: 06/21/20 07:16 Source: patient Mode of arrival: Ambulatory Limitations: no limitations History of Present Illness HPI narrative: 59-year-old female here for evaluation of 2-3 days of shortness of breath and hypoxia at home. Patient states that she does have a history of ?seasonal asthma ?she has a rescue inhaler at home. Over the past 2 or 3 days she has noticed dyspnea on exertion and orthopnea. Stating that she feels like her lungs are crackly when she lays down. She has been using her albuterol at home without any improvement. She does have a family member who works at the local [employer] however no other known exposures to COVID-19. She denies any fevers. Does state she has had off and on ?twinges ?in the center of her chest over the past couple months but this has not changed recently. States that last evening she used her home pulse oximeter and noted that the oxygen saturations were at 89% when she was short of breath. Currently lying in the bed she states that she does not feel as bad as which she did last evening. No lower extremity swelling. Related Data Home Medications Medication Instructions Recorded Confirmed citalopram [Celexa] 1 tab PO BEDTIME #0 06/19/16 07/11/18 calcium polycarbophil [FiberCon] 1 tab PO PRN PRN #0 02/27/17 07/11/18 cholecalciferol (vitamin D3) 1,000 unit PO DAILY #0 02/27/17 07/11/18 [Vitamin D3] multivitamin [Multiple Vitamins] 1 tab PO DAILY #0 02/27/17 07/11/18 albuterol sulfate [Ventolin HFA] 2 puff INH PRN PRN #0 03/05/17 07/11/18 Qvar RediHaler 1 puff INHALATION DIRECTED 07/09/18 07/11/18 fexofenadine [Leslie Allergy] 180 mg PO DAILY 07/09/18 07/11/18 topiramate 100 mg PO BID 07/09/18 07/11/18 Previous Rx's Medication Instructions Recorded ondansetron HCl 4 mg PO TID-QID PRN #14 tab 07/09/18 morphine 15 mg PO Q6H PRN #10 tab 07/11/18 Allergies Allergy/AdvReac Type Severity Reaction Status Date / Time NSAIDS (Non-Steroidal Allergy Intermediate Unverified 07/11/18 10:25 Anti-Inflamma [NSAIDS (NON-STEROIDAL ANTI-INFLAMMA] aspirin [ASPIRIN] Allergy Unknown Unverified 07/11/18 10:25 Sulfa (Sulfonamide Allergy Unknown Unverified 07/11/18 10:25 Antibiotics) [SULFA (SULFONAMIDE ANTIBIOTICS)] Review of Systems Constitutional Constitutional: Denies fever(s) Cardiovascular Cardiovascular: Reports chest pain (?Twinges ?of chest pain over the past couple months), Denies rapid heart rate, Denies edema, Denies irregular heart rhythm, Reports dyspnea and Reports dyspnea on exertion Respiratory Respiratory: Denies cough, Denies pain with cough, Reports dyspnea, Reports dyspnea on exertion and Reports wheezing Comments: Orthopnea, Gastrointestinal Gastrointestinal: Denies abdominal pain, Denies nausea and Denies vomiting Genitourinary Genitourinary: Denies dysuria Genitourinary: Denies dysuria Musculoskeletal Comments: Chronic back pain Integumentary/Breasts Skin/Breast: Denies lesions and Denies rash Neurologic Neurologic: Denies behavioral changes Psychiatric Psychiatric: Denies behavioral changes Hematologic/Lymphatic Hematologic/Lymphatic: Denies easy bleeding and Denies easy bruising Allergic/Immunologic Allergic/Immunologic: Reports wheezing Patient History Medical History Chronic back pain (Acute) IBS (irritable bowel syndrome) (Acute) Kidney stone on right side (Inactive) Kidney stones (Inactive) Scoliosis (Acute) Urethral pain (Inactive) Social History Smoking Status: Former smoker Smoking Status: Former smoker alcohol intake frequency: a few times a month Alcohol type: wine Substance Use Type: does not use Exam Initial Vital Signs Initial Vital Signs: Vital Signs Temperature 97.6 F 06/21/20 07:20 Pulse Rate 104 H 06/21/20 07:20 Respiratory Rate 21 06/21/20 07:20 Blood Pressure 190/104 H 06/21/20 07:20 Pulse Oximetry 98 06/21/20 07:20 Const General: cooperative and comfortable Limitations: mental status not altered HENMS Head: normal to inspection and normocephalic Resp Effort & Inspection: normal respiratory effort Auscultation: clear to auscultation bilaterally Cardio Rate: tachycardic Rhythm: regular rhythm Pulses: radial pulses present GI Inspection: non-distended Palpation: soft and No tender Skin Lesions: no lesions Rashes: no rashes Neuro General: patient alert, patient awake and patient oriented x3 Cognition: normal cognition Speech: speech normal Extrem General: normal to inspection and capillary refill normal Psych Appearance: grossly normal and well kempt Scores GCS [place] coma scale eye opening: Spontaneous [place] coma scale verbal response: Orientated [place] coma scale motor response: Obey commands [place] coma scale total score: 15 HEART Score Heart Score history: Slightly Suspicious Heart Score EKG: Significant ST depression Heart Score Age: 45-64 years old Heart Score risk factors: 1-2 risk factors Heart Score troponin: < or = to normal limit Heart Score Total: 4 PERC Score Age greater than or equal to 50 years: Yes Heart rate greater than or equal to 100 bpm: Yes Room Air O2 Sat less than 95%: No Unilateral leg swelling: No Recent trauma or surgery: No Hemoptysis: No Prior PE or DVT: No Hormone Use: No Total PERC Score: 2 Course Orders Ordered: ED Orders 06/21/20 07:17 XR chest 1V Stat EKG-12 Lead Stat 06/21/20 07:30 Complete Blood Count AUTO DIFF Stat Comprehensive Metabolic Panel Stat D Dimer Stat Lipase Stat Procalcitonin Stat Troponin & CK Cardiac Panel Stat 06/21/20 07:35 COVID19 -ED/INPAT/OR/L&D Stat 06/21/20 08:59 NT-proBNP (BNP-Adult 18+) Stat 06/21/20 09:09 CT angio chest PE protocol Stat 06/21/20 10:28 Troponin & CK Cardiac Panel Stat Sodium Chloride (Normal Saline 0.9%) 1,000 mls @ 500 mls/hr IV BOLUS ONE Stop: 06/21/20 11:08 Last Admin: 06/21/20 09:17 Dose: 500 mls/hr Documented by: ИВАН Vital Signs Vital signs: Vital Signs - 8 hr 06/21/20 07:20 Temperature 97.6 F Pulse Rate 104 H Respiratory Rate 21 Blood Pressure 190/104 H Pulse Oximetry 98 Medical Decision Making Medical Records Medical records reviewed: Yes I reviewed the patient's medical records. Lab Data Lab results reviewed: Yes I reviewed the patient's lab results. Result diagrams: 06/21/20 07:30 06/21/20 07:30 Labs: Lab Results 06/21/20 06/21/20 06/21/20 Range/Units 07:30 07:30 07:30 WBC 8.3 (4.5-11.0) X10^3/uL RBC 4.05 (4.0-5.2) X10^6/uL Hgb 13.4 (12.0-16.0) g/dL Hct 38.6 (36-46) % MCV 95.3 (80-100) fL MCH 33.0 (26-34) PG MCHC 34.6 (30-36) % RDW 12.5 (11.6-14.8) % Plt Count 289 (150-400) X10^3/uL Neut % (Auto) 54.6 (50-75) % Lymph % (Auto) 34.5 (25-40) % [place] % (Auto) 5.9 (3-14) % Eos % (Auto) 3.6 (2-4) % Baso % (Auto) 1.4 (0-2) % Neut # (Auto) 4500 (2665-1556) /uL Lymph # (Auto) 2900 (6995-0574) /uL [place] # (Auto) 500 (0-900) /uL Eos # (Auto) 300 (0-450) /uL Baso # (Auto) 100 (0-100) /uL D-Dimer (<230) ng/mL Sodium 140 (137-145) mmol/L Potassium 3.9 (3.4-5.1) mmol/L Chloride 108 H (98-107) mmol/L Carbon Dioxide 25 (22-32) mmol/L BUN 15 (7-17) mg/dL Creatinine 0.57 (0.52-1.04) mg/dL Estimated GFR > 60.0 (>60) mL/min BUN/Creatinine Ratio 26.3 H (6-22) Glucose 92 (70-100) mg/dL Calcium 9.0 (8.4-10.2) mg/dL Total Bilirubin 0.4 (0.2-1.3) mg/dL AST 27 (14-36) IU/L ALT 18 (<35) IU/L Alkaline Phosphatase 81 (38-126) U/L Total Creatine Kinase 237 H (30-135) U/L CK-MB (CK-2) 11.70 H (<2.37) ng/mL CK-MB (CK-2) Rel Index 4.9 (1.5-5.0) % Troponin I < 0.012 (0.01-0.034) ng/mL NT-Pro-B Natriuret Pep (<125) pg/mL Total Protein 7.5 (6.3-8.2) g/dL Albumin 4.4 (3.5-5.0) g/dL Globulin 3.1 (1.7-4.1) g/dL Albumin/Globulin Ratio 1.4 (1.0-2.8) Lipase 443 H (23-300) U/L Procalcitonin < 0.05 (<0.5) ng/mL COVID-19 PCR (Negative) 06/21/20 06/21/20 06/21/20 Range/Units 07:30 07:35 08:59 WBC (4.5-11.0) X10^3/uL RBC (4.0-5.2) X10^6/uL Hgb (12.0-16.0) g/dL Hct (36-46) % MCV (80-100) fL MCH (26-34) PG MCHC (30-36) % RDW (11.6-14.8) % Plt Count (150-400) X10^3/uL Neut % (Auto) (50-75) % Lymph % (Auto) (25-40) % [place] % (Auto) (3-14) % Eos % (Auto) (2-4) % Baso % (Auto) (0-2) % Neut # (Auto) (6995-0502) /uL Lymph # (Auto) (1425-6122) /uL [place] # (Auto) (0-900) /uL Eos # (Auto) (0-450) /uL Baso # (Auto) (0-100) /uL D-Dimer < 200 (<230) ng/mL Sodium (137-145) mmol/L Potassium (3.4-5.1) mmol/L Chloride (98-107) mmol/L Carbon Dioxide (22-32) mmol/L BUN (7-17) mg/dL Creatinine (0.52-1.04) mg/dL Estimated GFR (>60) mL/min BUN/Creatinine Ratio (6-22) Glucose (70-100) mg/dL Calcium (8.4-10.2) mg/dL Total Bilirubin (0.2-1.3) mg/dL AST (14-36) IU/L ALT (<35) IU/L Alkaline Phosphatase (38-126) U/L Total Creatine Kinase (30-135) U/L CK-MB (CK-2) (<2.37) ng/mL CK-MB (CK-2) Rel Index (1.5-5.0) % Troponin I (0.01-0.034) ng/mL NT-Pro-B Natriuret Pep 216 H (<125) pg/mL Total Protein (6.3-8.2) g/dL Albumin (3.5-5.0) g/dL Globulin (1.7-4.1) g/dL Albumin/Globulin Ratio (1.0-2.8) Lipase (23-300) U/L Procalcitonin (<0.5) ng/mL COVID-19 PCR Negative (Negative) Urine Dip Bedside Urine Glucose Negative Bedside Urine Bilirubin - Negative Bedside Urine Ketone - Negative Urine Specific [place] 1.015 Bedside Urine Occult Blood - Negative Bedside Urine pH 6.0 Bedside Urine Protein - Negative Bedside Urine Urobilinogen - Negative Bedside Urine Nitrite - Negative Bedside Urine Leukocytes - Negative Esterase Point of care testing: Urine Dip Bedside Urine Glucose Negative Bedside Urine Bilirubin - Negative Bedside Urine Ketone - Negative Urine Specific [place] 1.015 Bedside Urine Occult Blood - Negative Bedside Urine pH 6.0 Bedside Urine Protein - Negative Bedside Urine Urobilinogen - Negative Bedside Urine Nitrite - Negative Bedside Urine Leukocytes - Negative Esterase Imaging Data Chest x-ray: Radiologist's Impression: [address] [id number] XRay Report Signed Patient: Kaylyn De Leon [facility]#: [id number] : 1960Acct:[id number] Age/Sex: 59 / FDate of Service: 06/21/20 Loc: ED Accession Number: [id number] Procedure: XR chest 1V Ordering Provider: Amadou Goodson D.O. PROCEDURE: XR CHEST 1V INDICATIONS: SOB TECHNIQUE: One view of the chest was acquired. COMPARISON: None. FINDINGS: Surgical changes and devices: None. Lungs and pleura: Lungs are clear. No pleural effusions or pneumothorax. Mediastinum: Mediastinal contours appear normal. Heart size is normal. Bones and chest wall: No suspicious bony lesions. Overlying soft tissues appear unremarkable. IMPRESSION: Normal for age, source of current shortness of breath symptoms is not seen. Dictated by: Josué Burns M.D. on 06/21/2020 at 8:33 Approved by: Josué Burns M.D. on 06/21/2020 at 8:34 CT scan - chest: Radiologist's Impression: [address] [address] [address] Scan Report Signed Patient: Kaylyn De Leon [facility]#: [id number] : 1960Acct:[id number] Age/Sex: 59 / FDate of Service: 06/21/20 Loc: ED Accession Number: [id number] Procedure: CT angio chest PE protocol Ordering Provider: Amadou Goodson D.O. PROCEDURE: CT ANGIO CHEST PE PROTOCOL INDICATIONS: Shortness of breath, hypoxia TECHNIQUE: After the administration of intravenous contrast, 2 mm thick sections acquired from the pulmonary apices to the posterior costophrenic angles. 3-dimensional maximum intensity projection (MIP) coronal and sagittal reformats were then acquired through the thorax. For radiation dose reduction, the following was used: automated exposure control, adjustment of mA and/or kV according to patient size. COMPARISON: [facility], CT, CT ABDOMEN PELVIS W CON, 07/09/2018, 14:44. [facility], CT, CT ABDOMEN PELVIS W CON, 07/15/2019, 12:08. [facility], CR, XR CHEST 1V, 06/21/2020, 8:08. FINDINGS: Image quality: Excellent. Pulmonary arteries: Pulmonary arteries are normal in size, and demonstrate no intraluminal filling defects to suggest central pulmonary embolism. Lungs and pleura: Centrilobular emphysematous changes are seen. These are more prominent at the lung apices than at the lung bases. Within the right upper lobe anteriorly, there is 8 mm x 8 mm spiculated nodule seen, as on series 5, image 132. No pleural effusions or pneumothorax. Central and peripheral airways are patent. Mediastinum: Heart size is normal, without pericardial effusion. No mediastinal or hilar adenopathy. Thoracic aorta is normal in caliber and enhancement. Esophagus is normal in caliber, without hiatal hernia. Bones and chest wall: No suspicious bony lesions. Ribs and thoracic spine appear intact throughout. Age-appropriate bony degenerative changes are seen. S-shaped scoliotic curvature is seen. Thyroid gland demonstrates no significant abnormality. No axillary or supraclavicular adenopathy. Abdomen: Visualized upper abdominal solid organs appear normal in the early arterial phase of enhancement. IMPRESSION: Negative for pulmonary embolism. There is an 8 mm spiculated nodule seen within the right upper lobe anteriorly. Please consider a dedicated PET-CT for further evaluation. Centrilobular emphysematous changes are seen. Incidental note is made of: S shaped scoliotic curvature Dictated by: Luis A Amaral M.D. on 06/21/2020 at 8:35 Approved by: Luis A Amaral M.D. on 06/21/2020 at 8:40 ECG Data Attestation: I personally reviewed and interpreted this ECG as follows: Prior ECG tracings: not available for review Interpretation: Sinus rhythm Ventricular rate 84 Normal axis Normal QRS Normal QTC ST depression V4 V5 V6 MDM Narrative Medical decision making narrative: Heart score 4. Troponin is negative. Chest x-ray and CT scan of the chest show no signs of pulmonary embolism. Patient is not clinically in heart failure. Does have ST depressions in V4 V5 V6. No old EKGs available for comparison. She is not having chest pain. Stated that she is having significant orthopnea and dyspnea on exertion. Was hypertensive here in the ER which improved without any intervention. Is not hypoxic. Slightly tachypneic. No indication for antibiotics. I feel given her symptoms that admitting for further workup is warranted. I did discuss the case with Dr. Mesa with cardiology who agreed with admitting. Discussed the case with Dr. Shelley with Internal Medicine who will admit. Discussed all this with the patient. She expressed understanding and agreement. Discharge Plan Departure Patient Disposition: Admitted as Observation Clinical Impression: Incidental lung nodule, Orthopnea, Dyspnea on exertion Admit Date/Time: 06/21/20 10:22 Admit Provider: Stanislaw Shelley
[2020-06-21 08:40] LABS: CKMB % Relative Index 4.9 % (1.5-5.0)
[2020-06-21 08:41] LABS: D Dimer < 200 ng/mL (<230); HEMOLYSIS 70 (0-50)
--- NOTE | 2020-06-21 09:09 | DI.CT.S_ITS ---
PROCEDURE: CT ANGIO CHEST PE PROTOCOL INDICATIONS: Shortness of breath, hypoxia TECHNIQUE: After the administration of intravenous contrast, 2 mm thick sections acquired from the pulmonary apices to the posterior costophrenic angles. 3-dimensional maximum intensity projection (MIP) coronal and sagittal reformats were then acquired through the thorax. For radiation dose reduction, the following was used: automated exposure control, adjustment of mA and/or kV according to patient size. COMPARISON: [facility], CT, CT ABDOMEN PELVIS W CON, 07/09/2018, 14:44. [facility], CT, CT ABDOMEN PELVIS W CON, 07/15/2019, 12:08. [facility], CR, XR CHEST 1V, 06/21/2020, 8:08. FINDINGS: Image quality: Excellent. Pulmonary arteries: Pulmonary arteries are normal in size, and demonstrate no intraluminal filling defects to suggest central pulmonary embolism. Lungs and pleura: Centrilobular emphysematous changes are seen. These are more prominent at the lung apices than at the lung bases. Within the right upper lobe anteriorly, there is 8 mm x 8 mm spiculated nodule seen, as on series 5, image 132. No pleural effusions or pneumothorax. Central and peripheral airways are patent. Mediastinum: Heart size is normal, without pericardial effusion. No mediastinal or hilar adenopathy. Thoracic aorta is normal in caliber and enhancement. Esophagus is normal in caliber, without hiatal hernia. Bones and chest wall: No suspicious bony lesions. Ribs and thoracic spine appear intact throughout. Age-appropriate bony degenerative changes are seen. S-shaped scoliotic curvature is seen. Thyroid gland demonstrates no significant abnormality. No axillary or supraclavicular adenopathy. Abdomen: Visualized upper abdominal solid organs appear normal in the early arterial phase of enhancement. IMPRESSION: Negative for pulmonary embolism. There is an 8 mm spiculated nodule seen within the right upper lobe anteriorly. Please consider a dedicated PET-CT for further evaluation. Centrilobular emphysematous changes are seen. Incidental note is made of: S shaped scoliotic curvature Dictated by: Luis A Amaral M.D. on 06/21/2020 at 8:35 Approved by: Luis A Amaral M.D. on 06/21/2020 at 8:40
[2020-06-21 09:16] LABS: NT-proBNP (BNP-Adult 18+) 216 pg/mL (<125)
[2020-06-21] MEDS: SODIUM CHLORIDE 0.9% 1,000 ML 500 ML IV (09:17)
--- NOTE | 2020-06-21 10:24 | DI.ECHO.S_ITS ---
[facility] +---------+ : : [address] : : : : [id number] : : : : Phone: [phone] Echocardiogram Report + + :Name: LEONELA SCHREIBER Study Date: 06/21/2020 Height: 68 in : :[facility] Weight: 155 lb : : Gender: Female BSA: 1.8 m2 : :: 1960 Age: 59 yrs BP: 133/89 mmHg: :Reason For Study: SHORTNESS OF BREATH : :Ordering Physician: BEV, : :NARCISA PHAM Performed By: Denise Mortensen : :Referring: NARCISA PABLO : + + Interpretation Summary The left ventricle is normal in size and wall thickness. Left ventricular systolic function is low normal. The ejection fraction is estimated to be 50- 55%. There is a mild dyssynchronous contraction pattern, consistent with a conduction abnormality. Diastolic parameters suggest a relaxation abnormality of the left ventricle, consistent with probable normal filling pressures. The right ventricle is normal in size and function. Pulmonary artery pressures cannot be estimated because of the lack of a measurable TR jet velocity but the IVC suggests a CVP of around 3 mmHg. The left atrium is borderline dilated. Right atrial size is normal. There is mild mitral regurgitation. There is no other significant valvular heart disease. The aortic root is normal size. Procedure: A two-dimensional transthoracic echocardiogram with color flow and Doppler was performed. The study quality was technically adequate. There is no prior echocardiogram noted for this patient. The heart rate ranged between 69-80 bpm during the study. Left Ventricle: The left ventricle is normal in size and wall thickness. Left ventricular systolic function is low normal. The ejection fraction is estimated to be 50-55%. There is a mild dyssynchronous contraction pattern, consistent with a conduction abnormality. Diastolic parameters suggest a relaxation abnormality of the left ventricle, consistent with probable normal filling pressures. Right Ventricle: The right ventricle is normal in size and function. Atria: The left atrium is borderline dilated. Right atrial size is normal. There is no Doppler evidence for an interatrial shunt. Mitral Valve: The mitral valve is normal in structure and function. There is mild mitral regurgitation. Aortic Valve: The aortic valve is trileaflet. The aortic valve opens well. There is no aortic valve stenosis. No aortic regurgitation is present. Tricuspid Valve: The tricuspid valve is normal in structure and function. There is trace tricuspid regurgitation. Pulmonary artery pressures cannot be estimated because of the lack of a measurable TR jet velocity but the IVC suggests a CVP of around 3 mmHg. Pulmonic Valve: The pulmonic valve leaflets are thin and pliable; valve motion is normal. There is mild pulmonic regurgitation. There is no other significant valvular heart disease. Great Vessels: The aortic root is normal size. The ascending aorta is normal in size. The IVC is of normal diameter and collapses greater than 50% with a sniff. This suggests a low right atrial pressure of 3 mm Hg. Pericardium/ Pleura There is no pericardial effusion. There is no pleural effusion. MMode/2D Measurements & Calculations LVIDd: 5.7 cm LVOT diam: 2.2 cm LVIDs: 3.9 cm Ao root diam: 3.3 cm FS: 31.5 % asc Aorta Diam: 3.1 cm EPSS: 1.1 cm Ao Arch Diam (Prox Trans): 2.4 cm IVSd: 0.72 cm LVPWd: 0.81 cm LV staton. diameter/BSA (cm/m^2): 3.1 LV sys. diameter/BSA (cm/m^2): 2.1 LA A2 area: 18.6 cm2 RA long axis: 4.9 cm LA A4 area: 18.0 cm2 RA area: 13.6 cm2 LA length (vol): 4.9 cm RA vol: 31.8 ml LA vol: 57.4 ml RA : 17.4 ml/m2 LA vol index: 31.3 ml/m2 IVC diam: 2.0 cm RVD1 (basal): 2.9 cm TAPSE: 1.7 cm Doppler Measurements & Calculations Ao V2 max: 119.8 cm/sec LVOT Max Marcellus: 83.6 cm/sec Ao V2 mean: 83.0 cm/sec LV V1 max P.8 mmHg Ao max P.7 mmHg LV V1 VTI: 17.5 cm Ao mean P.1 mmHg JEFFRY(I,D): 2.6 cm2 Ao V2 VTI: 24.9 cm JEFFRY(V,D): 2.6 cm2 sev ratio: 0.70 JEFFRY indexed to BSA (cm^2/m^2): 1.4 MV E max marcellus: 61.2 cm/sec PA V2 max: 63.6 cm/sec MV A max marcellus: 103.8 cm/sec PA V2 mean: 40.8 cm/sec MV E/A: 0.59 PA mean P.79 mmHg Med Peak E' Marcellus: 4.3 cm/sec PA pr(Accel): 1.9 mmHg E/E' med: 14.2 Lat Peak E' Marcellus: 6.5 cm/sec E/E' lat: 9.4 E/e' average: 11.8 MV dec time: 0.29 sec SV(LVOT): 64.1 ml Reading Physician:01:54 PM
[2020-06-21 10:49] LABS: Creatine Kinase 282 U/L (30-135)
[2020-06-21 11:04] LABS: Troponin I < 0.012 ng/mL (0.01-0.034)
[2020-06-21 11:05] LABS: CKMB % Relative Index 4.5 % (1.5-5.0)
--- NOTE | 2020-06-21 11:15 | PC.NURSE ---
Day shift: Pt on AC unit from ED at approx 1100. SHe is A&Ox3. Denies any chest pain or SOB. Does c/o mild headache. Echo is being done as this is written. RA 97%. Oriented to room and call light. Spouse, Ric is in room for support. Call light in reach. She is to be NPO unitl resting part of stress test and Pt has been made aware of this.
[2020-06-21] MEDS: ACETAMINOPHEN 325 MG TABLET 650 MG PO ×2 (11:50→20:48)
--- NOTE | 2020-06-21 13:23 | P.HP_ITS ---
History of Present Illness History of Present Illness Date Patient Seen: 06/21/20 Time Patient Seen: 13:24 Chief complaint: SHORTNESS OF BREATH,CHEST IS HEAVY Narrative: Kaylyn De Leon is a 59 year old female with chronic low back pain, prior peptic ulcer disease who presented to the emergency room with worsening dyspnea on exertion and chest pressure over the past 2 days. Patient states that whenever she walks more than approximately 25 ft she gets short of breath, diaphoretic, slightly nauseous, and has a feeling of pressure substernally. Substernal pressure does not radiate into her arm or jaw. She denies any vision changes, lower extremity edema, left arm pain or numbness/tingling. She denies any recent fevers, chills, headaches, cough, abdominal pain, dysuria, or urinary frequency. She states her mother had advanced coronary artery disease with mu ltiple stents, initially starting around her late 50s. Patient endorses prior smoking history with half pack a day for approximately 20 years. In the emergency room, the patient was mildly hypertensive but the remainder of her vital signs were unremarkable. EKG shows a sinus rhythm with mild ST depressions in inferior leads and V4 through V6 in precordial leads. No prior EKG is available for review. Patient's troponins have been negative x2. Chest x-ray was unremarkable. Laboratory evaluation was also unremarkable except for a mildly elevated lipase at 443, and a proBNP of 216. Emergency room contacted [facility] cardiology who recommended a CTA of her chest which was negative for PE. He then recommended an echocardiogram and further stress testing. Patient was admitted under observation status for further evaluation of her chest pain. Patient History Medical History Chronic back pain (Acute) IBS (irritable bowel syndrome) (Acute) Kidney stone on right side (Inactive) Kidney stones (Inactive) Scoliosis (Acute) Urethral pain (Inactive) Family & Social History Social History: household members spouse Prior Living Arrangements House Safety & Behavioral: Feels Safe in Current Yes Environment Suicidal Ideation Description None Suicide Plan Description No Plan Tobacco & Substance use: Smoking Status Former smoker alcohol intake frequency a few times a month Substance Use Type does not use Meds Home Medications and Allergies Home Medications Medication Instructions Recorded Confirmed Type citalopram [Celexa] 1 tab PO BEDTIME #0 06/19/16 07/11/18 History calcium polycarbophil [FiberCon] 1 tab PO PRN PRN #0 02/27/17 07/11/18 History cholecalciferol (vitamin D3) 1,000 unit PO DAILY #0 02/27/17 07/11/18 History [Vitamin D3] multivitamin [Multiple Vitamins] 1 tab PO DAILY #0 02/27/17 07/11/18 History albuterol sulfate [Ventolin HFA] 2 puff INH PRN PRN #0 03/05/17 07/11/18 History Qvar RediHaler 1 puff INHALATION DIRECTED 07/09/18 07/11/18 History fexofenadine [Leslie Allergy] 180 mg PO DAILY 07/09/18 07/11/18 History ondansetron HCl 4 mg PO TID-QID PRN #14 tab 07/09/18 07/11/18 Rx topiramate 100 mg PO BID 07/09/18 07/11/18 History morphine 15 mg PO Q6H PRN #10 tab 07/11/18 Rx Allergies Allergy/AdvReac Type Severity Reaction Status Date / Time NSAIDS (Non-Steroidal Allergy Intermediate Verified 06/21/20 10:45 Anti-Inflamma [NSAIDS (NON-STEROIDAL ANTI-INFLAMMA] aspirin [ASPIRIN] Allergy Unknown Verified 06/21/20 10:45 Sulfa (Sulfonamide Allergy Unknown Verified 06/21/20 10:45 Antibiotics) [SULFA (SULFONAMIDE ANTIBIOTICS)] Review of Systems Review of Systems Narrative: All other systems reviewed with the patient and are negative unless otherwise stated. Exam Vital Signs (past 8 hours): - 06/21/20 07:20 06/21/20 07:33 06/21/20 08:00 Temperature 97.6 F Pulse Rate 104 H 83 78 Respiratory Rate 21 27 H 16 Blood Pressure 190/104 H 143/96 H Pulse Oximetry 98 97 93 06/21/20 08:30 06/21/20 09:00 06/21/20 09:30 Temperature Pulse Rate 76 76 74 Respiratory Rate 22 12 17 Blood Pressure 150/87 H 133/89 162/73 H Pulse Oximetry 92 93 97 06/21/20 10:00 06/21/20 10:30 06/21/20 11:31 Temperature 98.4 F Pulse Rate 75 75 76 Respiratory Rate 18 23 15 Blood Pressure 151/114 H Pulse Oximetry 95 96 94 06/21/20 12:32 Temperature Pulse Rate Respiratory Rate Blood Pressure Pulse Oximetry 94 Oxygen Delivery Method Room Air Oxygen Flow Rate 0 Narrative Exam Narrative: GENERAL APPEARANCE: Well developed, well nourished, in no acute distress. SKIN: Inspection of the skin reveals no rashes, ulcerations or petechiae. HEENT: Normocephalic atraumatic, extraocular muscles are intact, oropharynx is clear and mucous membranes are moist, neck is supple without adenopathy NECK: Supple and symmetric. There was no thyroid enlargement, and no tenderness, or masses were felt. CHEST: Normal AP diameter and normal contour without any kyphoscoliosis. LUNGS: Auscultation of the lungs revealed no wheezes, rhonchi, or rales. CARDIOVASCULAR: There was a regular rate and rhythm without any murmurs, gallops, rubs. Peripheral pulses were 2+ and symmetric. ABDOMEN: Soft and nontender with normal bowel sounds. No ascites was noted. MUSCULOSKELETAL: There was no tenderness or effusions noted. Muscle strength and tone were normal. EXTREMITIES: No cyanosis, clubbing or edema. NEUROLOGIC: Alert and oriented x 3. Normal affect. Gait was normal. Strength is +5/5 in the Upper Extremities and Lower Extremities Bilaterally. Sensation to touch was normal. Objective Labs Result Diagrams: 06/21/20 07:30 06/21/20 07:30 Labs: Laboratory Results - last 24 hr 06/21/20 06/21/20 06/21/20 07:30 07:30 07:30 WBC 8.3 RBC 4.05 Hgb 13.4 Hct 38.6 MCV 95.3 MCH 33.0 MCHC 34.6 RDW 12.5 Plt Count 289 Neut % (Auto) 54.6 Lymph % (Auto) 34.5 [place] % (Auto) 5.9 Eos % (Auto) 3.6 Baso % (Auto) 1.4 Neut # (Auto) 4500 Lymph # (Auto) 2900 [place] # (Auto) 500 Eos # (Auto) 300 Baso # (Auto) 100 D-Dimer Sodium 140 Potassium 3.9 Chloride 108 H Carbon Dioxide 25 BUN 15 Creatinine 0.57 Estimated GFR > 60.0 BUN/Creatinine Ratio 26.3 H Glucose 92 Calcium 9.0 Total Bilirubin 0.4 AST 27 ALT 18 Alkaline Phosphatase 81 Total Creatine Kinase 237 H CK-MB (CK-2) 11.70 H CK-MB (CK-2) Rel Index 4.9 Troponin I < 0.012 NT-Pro-B Natriuret Pep Total Protein 7.5 Albumin 4.4 Globulin 3.1 Albumin/Globulin Ratio 1.4 Lipase 443 H Procalcitonin < 0.05 COVID-19 PCR 06/21/20 06/21/20 06/21/20 07:30 07:35 08:59 WBC RBC Hgb Hct MCV MCH MCHC RDW Plt Count Neut % (Auto) Lymph % (Auto) [place] % (Auto) Eos % (Auto) Baso % (Auto) Neut # (Auto) Lymph # (Auto) [place] # (Auto) Eos # (Auto) Baso # (Auto) D-Dimer < 200 Sodium Potassium Chloride Carbon Dioxide BUN Creatinine Estimated GFR BUN/Creatinine Ratio Glucose Calcium Total Bilirubin AST ALT Alkaline Phosphatase Total Creatine Kinase CK-MB (CK-2) CK-MB (CK-2) Rel Index Troponin I NT-Pro-B Natriuret Pep 216 H Total Protein Albumin Globulin Albumin/Globulin Ratio Lipase Procalcitonin COVID-19 PCR Negative 06/21/20 10:28 WBC RBC Hgb Hct MCV MCH MCHC RDW Plt Count Neut % (Auto) Lymph % (Auto) [place] % (Auto) Eos % (Auto) Baso % (Auto) Neut # (Auto) Lymph # (Auto) [place] # (Auto) Eos # (Auto) Baso # (Auto) D-Dimer Sodium Potassium Chloride Carbon Dioxide BUN Creatinine Estimated GFR BUN/Creatinine Ratio Glucose Calcium Total Bilirubin AST ALT Alkaline Phosphatase Total Creatine Kinase 282 H CK-MB (CK-2) 12.70 H CK-MB (CK-2) Rel Index 4.5 Troponin I < 0.012 NT-Pro-B Natriuret Pep Total Protein Albumin Globulin Albumin/Globulin Ratio Lipase Procalcitonin COVID-19 PCR Assessment & Plan Assessment & Plan narrative: Kaylyn De Leon is a 59 year old female with chronic low back pain, prior peptic ulcer disease who presented to the emergency room with worsening dyspnea on exertion and chest pressure over the past 2 days. She is admitted to Medicine for further evaluation of her symptoms with a stress test. 1. Shortness of breath and chest pressure, acute, present on admission -symptoms highly concerning for cardiac etiology given history and ST depressions on EKG. Troponins negative x2, will check a 3rd this evening. Cardiology in the emergency room recommended stress testing an echocardiogram which have been ordered. CTA negative for PE but did show spiculated lung nodule and emphesematous changes as well. -COVID-19 testing was negative. -will give ASA and start Lipitor. Patient reports prior ulcers with NSAIDs, will start a PPI as well. -risk stratify with A1c, TSH, fasting lipid panel. -stress testing possibly today or tomorrow, NPO at midnight 2. Incidental lung nodule noted on CT imaging. - spiculated 8 mm nodule noted on CT imaging for shortness of breath. Will need PMD follow up. Risk of malignancy is 10% per Hunter equation (intermediate risk). Management varies from imaging follow up with additional CT or PET scan to possible surgical resection/biopsy. Code: Full as discussed with the patient DVT: Lovenox daily Dispo: Admitted under observation status as her stay is not expected to exceed 2 midnights, depending on the results of her stress testing. COVID-19 COVID-19 status: Negative
[2020-06-21] MEDS: ASPIRIN 81 MG CHEW TAB 324 MG PO (15:25)
[2020-06-21 18:35] LABS: Troponin I < 0.012 ng/mL (0.01-0.034)
[2020-06-21] MEDS: ATORVASTATIN 20 MG TABLET 40 MG PO (20:48)
[2020-06-21] MEDS: SODIUM CHLORIDE 0.9% FLUSH 10 ML IV (20:49)
[2020-06-22] VITALS (10 sets, daily range): BP systolic 125–143; BP diastolic 81–98; PULSE 61–76; RESP 12–18; TEMP 36.3–36.8; O2SAT 92–97
--- NOTE | 2020-06-22 02:02 | PC.NURSE ---
Addendum entered by Annie Restrepo R.N. 06/22/20 06:47: at approximately 0640, pt had another run of 6 beats of Vtach. Assessment, again, showed VSS, asymptomatic. ANNITA Velazquez notified, no new orders. Pt aware of need to call if she shows any s/s. Original Note: at approximately 0130, this RN was informed of an 8 second run of Vtach noted for this patient. Assessment showed an asymptomatic pt w/stable vitals. ANNITA Velazquez was notified. No new orders at this time. Requested pt call if she has any symptoms.
[2020-06-22 05:59] LABS: Add Manual Diff / Slide Review NO; Basophils Absolute Auto 100 /uL (0-100); Basophils Percent Auto 1.3 % (0-2); Eosinophils Absolute Auto 400 /uL (0-450); Eosinophils Percent Auto 5.5 % (2-4); Lymphocytes Absolute Auto 2500 /uL (1100-4500); Lymphocytes Percent Auto 38.2 % (25-40); Mean Corpuscular HGB Conc 34.2 % (30-36); Mean Corpuscular Hemoglobin 32.7 PG (26-34); Mean Corpuscular Volume 95.4 fL (80-100); Monocytes Absolute Auto 400 /uL (0-900); Monocytes Percent Auto 6.4 % (3-14); Neutrophils Absolute Auto 3200 /uL (1500-7000); Neutrophils Percent Auto 48.6 % (50-75); Platelet Count 262 X10^3/uL (150-400); Red Blood Cell Count 3.99 X10^6/uL (4.0-5.2); Red Cell Distribution Width 12.3 % (11.6-14.8); White Blood Cell Count 6.5 X10^3/uL (4.5-11.0)
[2020-06-22 06:05] LABS: Alanine Aminotransferase 15 IU/L (<35); Albumin 3.8 g/dL (3.5-5.0); Albumin Globulin Ratio 1.4 (1.0-2.8); Alkaline Phosphatase 71 U/L (38-126); Aspartate Aminotransferase 25 IU/L (14-36); BUN Creatinine Ratio 27.1 (6-22); Bilirubin Total 0.4 mg/dL (0.2-1.3); Bilirubin Unconjugated 0.3 mg/dL (0.0-1.1); Blood Urea Nitrogen 16 mg/dL (7-17); Calcium 8.7 mg/dL (8.4-10.2); Carbon Dioxide 27 mmol/L (22-32); Chloride 110 mmol/L (98-107); Cholesterol 192 mg/dL (140-199); Estimated Glomerular Filt Rate > 60.0 mL/min (>60); Globulin 2.7 g/dL (1.7-4.1); Glucose 90 mg/dL (70-100); HDL Cholesterol 60 mg/dL (40-60); HEMOLYSIS < 15 (0-50); LDL Cholesterol Calculated 114 mg/dL (<100); Magnesium 2.1 mg/dL (1.6-2.3); Potassium 4.2 mmol/L (3.4-5.1); Sodium 140 mmol/L (137-145); Total Protein 6.5 g/dL (6.3-8.2); Triglycerides 92 mg/dL (35-150)
[2020-06-22 06:22] LABS: Hemoglobin A1C% w Est Avg Glu 5.4 % (4.0-6.0)
[2020-06-22 06:38] LABS: TSH w/ Reflex to FT4 1.99 uIU/mL (0.47-4.68)
[2020-06-22] MEDS: ACETAMINOPHEN 325 MG TABLET 650 MG PO ×2 (07:51→12:41)
[2020-06-22] MEDS: ENOXAPARIN 40 MG/0.4 ML SYRINGE SUBCUT (08:36)
[2020-06-22] MEDS: SODIUM CHLORIDE 0.9% FLUSH 10 ML IV ×2 (08:36→20:26)
[2020-06-22] MEDS: ASPIRIN EC 81 MG TABLET PO (08:36)
[2020-06-22] MEDS: PANTOPRAZOLE 20 MG TABLET PO ×2 (08:41→08:42)
--- NOTE | 2020-06-22 10:46 | PC.NURSE ---
Addendum entered by Marquita Newby R.N. 06/22/20 10:49: Telemetry is NSR. Original Note: Assess- Patient given tylenol for complaints of headache. She has been down to part 1 of her stress test. All medications given, denies chest pain or sob thus far. Up independently in room, went home. She has eaten breakfast and is waiting for her second part of her test.
[2020-06-22] MEDS: ONDANSETRON 4 MG/2 ML INJ IV ×2 (12:49→20:29)
--- NOTE | 2020-06-22 15:26 | CM.DPNOTE ---
DCP According to Dr Shelley, it's possible patient will need transfer to [facility] for cardiology f/u; pending results of stress test today. This ST[employer] BROKER following closely, will wait to assess needs further JW
--- NOTE | 2020-06-22 17:24 | DI.NM.S_ITS ---
DATE OF SERVICE: 06/22/2020 PROCEDURE PERFORMED: Exercise treadmill stress and rest myocardial perfusion imaging with gating to assess ejection fraction and regional wall motion. ORDERING PROVIDER: Dr. Stanislaw Shelley. INDICATIONS: The patient is a 59-year-old female with exertional dyspnea and chest heaviness. EXERCISE TREADMILL TESTING: The patient was able to exercise for a total of 5 minutes 22 seconds, the first 3 minutes at stage I with the remaining time maintained at stage I, suggesting significantly reduced exercise capacity. With this, she had an accelerated heart rate response with a resting heart rate of 92 BPM, increasing to 132 BPM after 2 minutes of exercise and achieving a maximum heart rate of 143 BPM (89% of her predicted maximum). She had a normal blood pressure response. She had 2/10 chest discomfort at rest that increased to 5/10 with exercise. Her resting ECG shows an LVH with strain pattern with significant ST-segment depression in the inferolateral leads. With exercise, these become somewhat accentuated, but remain nonspecific for ischemia. She had occasional PVCs, rarely in couplets. At 3 minutes 58 seconds at a heart rate of 140 BPM, 25.2 millicuries of technetium-99m Myoview was injected and the patient was imaged 30 minutes later using a gated SPECT acquisition protocol. Earlier in the day, while at rest, she had been injected with 10.2 millicuries of technetium-99m Myoview and imaged 30 minutes later, again using a gated SPECT acquisition protocol. FINDINGS: 1. Raw Data: There is fairly good myocardial tracer uptake with mild breast shadows noted. Lung/heart ratio was normal at 0.39 with a normal TID ratio of 0.91. 2. Quantitated gated SPECT: Post-stress ejection fraction is 70% without any focal wall motion abnormality. Specifically, the anterior wall has normal contractility. Resting ejection fraction is estimated at 57%, but visually appears similar to that of the post-stress images. Resting end-diastolic volume is slightly elevated at 127 mL. 3. Myocardial perfusion imaging: Post-stress supine images shows a fairly normal myocardial perfusion pattern with a very subtle defect in the distal anterior wall in a pattern that would be consistent with breast attenuation artifact, supported by its complete resolution on the prone images, which reveal a completely normal perfusion pattern. The resting images show a similar perfusion pattern of the post-stress supine images without significant improvement in the anterior apical defect and no other areas of improvement. CONCLUSION: 1. Probable normal myocardial perfusion study. 2. Subtle fixed distal anterior wall defect that resolves on prone imaging, most consistent with breast attenuation artifact. There is no compelling evidence for myocardial ischemia or previous myocardial infarction. 3. Normal left ventricular systolic function without any focal wall motion abnormality. Left ventricular volumes are slightly elevated. 4. Reduced exercise capacity with chest discomfort at rest that became accentuated with stress. The resting ECG shows LVH with strain pattern with accentuation of ST depression with exercise, which could be an ischemic response, but is nonspecific given the baseline abnormalities. 5. Compared to the previous myocardial perfusion study of 01/12/2016, she had a similar ECG changes and chest discomfort with significantly reduced exercise capacity. Her ejection fraction was similar to today's study and the perfusion imaging is identical to that of today's exam. There has been no significant change. Kaylyn De Leon - KEVIN/tej/lc doc#: [id number]/job#: [id number] dd: 06/22/2020 16:49:00 dt: 06/22/2020 17:05:00 DICTATING MD/COPIES TO: Long Smart MD; Stanislaw Shelley M.D. COPIES MNE: THOMAS;
--- NOTE | 2020-06-22 19:48 | P.PN_ITS ---
Subjective Subjective Date Patient Seen: 06/22/20 Time Patient Seen: 19:48 Interval history: Kaylyn De Leon is a 59 year old female with chronic low back pain, prior peptic ulcer disease who presented to the emergency room with worsening dyspnea on exertion and chest pressure over the past 2 days. EKG during stress testing showed ST depressions that worsened with activity. Nuclear portion was deemed not concerning. Patient did have some runs of non-sustained ventricular tachycardia overnight as well. Cardiology did not recommend cardiac catheterization and stated to treat medically with asa and statin. Will continue to monitor given acute onset of her symptoms to make sure there is no more arrythmias overnight and continue troponin trend given symptoms. Exam Vital Signs (past 8 hours): - 06/22/20 12:00 06/22/20 15:41 Temperature 97.8 F 98.0 F Pulse Rate 73 76 Respiratory Rate 16 18 Blood Pressure 143/85 H 125/93 H Pulse Oximetry 92 94 Oxygen Delivery Method Room Air Oxygen Flow Rate 0 Narrative Exam Narrative: GENERAL APPEARANCE: Well developed, well nourished, in no acute distress. SKIN: Inspection of the skin reveals no rashes, ulcerations or petechiae. HEENT: Normocephalic atraumatic, extraocular muscles are intact, oropharynx is clear and mucous membranes are moist, neck is supple without adenopathy NECK: Supple and symmetric. There was no thyroid enlargement, and no tenderness, or masses were felt. CHEST: Normal AP diameter and normal contour without any kyphoscoliosis. LUNGS: Auscultation of the lungs revealed no wheezes, rhonchi, or rales. CARDIOVASCULAR: There was a regular rate and rhythm without any murmurs, gallops, rubs. Peripheral pulses were 2+ and symmetric. ABDOMEN: Soft and nontender with normal bowel sounds. No ascites was noted. MUSCULOSKELETAL: There was no tenderness or effusions noted. Muscle strength and tone were normal. EXTREMITIES: No cyanosis, clubbing or edema. NEUROLOGIC: Alert and oriented x 3. Normal affect. Gait was normal. Strength is +5/5 in the Upper Extremities and Lower Extremities Bilaterally. Sensation to touch was normal. Objective Labs Result Diagrams: 06/22/20 05:21 06/22/20 05:21 Labs: Laboratory Results - last 24 hr 06/22/20 06/22/20 06/22/20 05:21 05:21 05:21 WBC 6.5 RBC 3.99 L Hgb 13.0 Hct 38.0 MCV 95.4 MCH 32.7 MCHC 34.2 RDW 12.3 Plt Count 262 Neut % (Auto) 48.6 L Lymph % (Auto) 38.2 [place] % (Auto) 6.4 Eos % (Auto) 5.5 H Baso % (Auto) 1.3 Neut # (Auto) 3200 Lymph # (Auto) 2500 [place] # (Auto) 400 Eos # (Auto) 400 Baso # (Auto) 100 Sodium 140 Potassium 4.2 Chloride 110 H Carbon Dioxide 27 BUN 16 Creatinine 0.59 Estimated GFR > 60.0 BUN/Creatinine Ratio 27.1 H Glucose 90 Hemoglobin A1c 5.4 Calcium 8.7 Magnesium 2.1 Total Bilirubin 0.4 Conjugated Bilirubin 0.0 Unconjugated Bilirubin 0.3 AST 25 ALT 15 Alkaline Phosphatase 71 Total Protein 6.5 Albumin 3.8 Globulin 2.7 Albumin/Globulin Ratio 1.4 Triglycerides 92 Cholesterol 192 LDL Cholesterol, Calc 114 H HDL Cholesterol 60 TSH 06/22/20 05:21 WBC RBC Hgb Hct MCV MCH MCHC RDW Plt Count Neut % (Auto) Lymph % (Auto) [place] % (Auto) Eos % (Auto) Baso % (Auto) Neut # (Auto) Lymph # (Auto) [place] # (Auto) Eos # (Auto) Baso # (Auto) Sodium Potassium Chloride Carbon Dioxide BUN Creatinine Estimated GFR BUN/Creatinine Ratio Glucose Hemoglobin A1c Calcium Magnesium Total Bilirubin Conjugated Bilirubin Unconjugated Bilirubin AST ALT Alkaline Phosphatase Total Protein Albumin Globulin Albumin/Globulin Ratio Triglycerides Cholesterol LDL Cholesterol, Calc HDL Cholesterol TSH 1.99 Assessment & Plan Assessment & Plan narrative: Kaylyn De Leon is a 59 year old female with chronic low back pain, prior peptic ulcer disease who presented to the emergency room with worsening dyspnea on exertion and chest pressure over the past 2 days. She is admitted to Medicine for further evaluation of her symptoms with a stress test. 1. Shortness of breath and chest pressure, acute, present on admission -symptoms highly concerning for cardiac etiology given history and ST depressions on EKG and worsened during stress testing. Troponins negative x3 but will repeat overnight. Given negative nuclear portion cardiology recommended against cardiac catheterization at this time. CTA negative for PE but did show spiculated lung nodule and emphesematous changes as well. -COVID-19 testing was negative. -will give ASA and start Lipitor. Patient reports prior ulcers with NSAIDs, have started asa with a PPI. -risk stratififcation labs TC 192, LDL 113, HDL 60. TG 92. TSH 1.99. A1c is 5.4%. -if no further cardiac events overnight and no troponin elevations can possibly discharge in the AM. 2. Incidental lung nodule noted on CT imaging. - spiculated 8 mm nodule noted on CT imaging for shortness of breath. Will need PMD follow up. Risk of malignancy is 10% per Hunter equation (intermediate risk). Management varies from imaging follow up with additional CT or PET scan to possible surgical resection/biopsy. Code: Full as discussed with the patient DVT: Lovenox daily Dispo: Admitted under observation status.
[2020-06-22] MEDS: ATORVASTATIN 20 MG TABLET 40 MG PO (20:25)
[2020-06-22] MEDS: OXYCODONE IR 5 MG TABLET PO (20:26)
[2020-06-22 20:29] LABS: Troponin I < 0.012 ng/mL (0.01-0.034)
[2020-06-23] VITALS: BP 119/79; PULSE 79; RESP 16; TEMP 36.6; O2SAT 98
[2020-06-23 01:00] VITALS: O2SAT 98
[2020-06-23] MEDS: OXYCODONE IR 5 MG TABLET PO ×2 (03:09→07:24)
[2020-06-23 04:00] VITALS: BP 115/78; PULSE 66; RESP 18; TEMP 36.1; O2SAT 96
[2020-06-23] MEDS: ACETAMINOPHEN 325 MG TABLET 650 MG PO (05:54)
[2020-06-23] MEDS: ONDANSETRON 4 MG/2 ML INJ IV ×2 (05:54→09:18)
[2020-06-23 06:12] LABS: Add Manual Diff / Slide Review NO; Basophils Absolute Auto 100 /uL (0-100); Basophils Percent Auto 0.9 % (0-2); Eosinophils Absolute Auto 400 /uL (0-450); Eosinophils Percent Auto 5.4 % (2-4); Hemoglobin 13.3 g/dL (12.0-16.0); Lymphocytes Absolute Auto 2900 /uL (1100-4500); Lymphocytes Percent Auto 39.8 % (25-40); Mean Corpuscular HGB Conc 34.2 % (30-36); Mean Corpuscular Hemoglobin 32.8 PG (26-34); Mean Corpuscular Volume 95.7 fL (80-100); Monocytes Absolute Auto 500 /uL (0-900); Monocytes Percent Auto 7.6 % (3-14); Neutrophils Absolute Auto 3300 /uL (1500-7000); Neutrophils Percent Auto 46.3 % (50-75); Platelet Count 269 X10^3/uL (150-400); Red Blood Cell Count 4.07 X10^6/uL (4.0-5.2); Red Cell Distribution Width 12.4 % (11.6-14.8); White Blood Cell Count 7.2 X10^3/uL (4.5-11.0)
[2020-06-23 06:19] LABS: Alanine Aminotransferase 15 IU/L (<35); Albumin Globulin Ratio 1.4 (1.0-2.8); Alkaline Phosphatase 74 U/L (38-126); Aspartate Aminotransferase 23 IU/L (14-36); BUN Creatinine Ratio 29.8 (6-22); Bilirubin Total 0.4 mg/dL (0.2-1.3); Bilirubin Unconjugated 0.4 mg/dL (0.0-1.1); Blood Urea Nitrogen 17 mg/dL (7-17); Calcium 8.8 mg/dL (8.4-10.2); Carbon Dioxide 27 mmol/L (22-32); Chloride 108 mmol/L (98-107); Estimated Glomerular Filt Rate > 60.0 mL/min (>60); Globulin 2.8 g/dL (1.7-4.1); Glucose 98 mg/dL (70-100); HEMOLYSIS < 15 (0-50); Sodium 141 mmol/L (137-145); Total Protein 6.8 g/dL (6.3-8.2)
[2020-06-23 06:31] LABS: Troponin I < 0.012 ng/mL (0.01-0.034)
[2020-06-23] MEDS: SODIUM CHLORIDE 0.9% FLUSH 10 ML IV (07:23)
[2020-06-23] MEDS: FLUTICASONE 120 SPRAY/16 GM SPRAY.SUSP NASAL (07:24)
[2020-06-23] MEDS: ASPIRIN EC 81 MG TABLET PO (07:24)
[2020-06-23] MEDS: ENOXAPARIN 40 MG/0.4 ML SYRINGE SUBCUT (07:25)
[2020-06-23 08:08] VITALS: BP 135/87; PULSE 68; RESP 16; TEMP 36.2; O2SAT 92
[2020-06-23 08:10] VITALS: O2SAT 92
--- NOTE | 2020-06-23 08:18 | PM.DS.1 ---
History of Present Illness History of Present Illness Date Patient Seen: 06/23/20 Time Patient Seen: 08:19 Chief complaint: SHORTNESS OF BREATH,CHEST IS HEAVY Narrative: Kaylyn De Leon is a 59 year old female with chronic low back pain, prior peptic ulcer disease who presented to the emergency room with worsening dyspnea on exertion and chest pressure over the past 2 days. Patient states that whenever she walks more than approximately 25 ft she gets short of breath, diaphoretic, slightly nauseous, and has a feeling of pressure substernally. Substernal pressure does not radiate into her arm or jaw. She denies any vision changes, lower extremity edema, left arm pain or numbness/tingling. She denies any recent fevers, chills, headaches, cough, abdominal pain, dysuria, or urinary frequency. She states her mother had advanced coronary artery disease with multiple stents, initially starting around her late 50s. Patient endorses prior smoking history with half pack a day for approximately 20 years. In the emergency room, the patient was mildly hypertensive but the remainder of her vital signs were unremarkable. EKG shows a sinus rhythm with mild ST depressions in inferior leads and V4 through V6 in precordial leads. No prior EKG is available for review. Patient's troponins have been negative x2. Chest x-ray was unremarkable. Laboratory evaluation was also unremarkable except for a mildly elevated lipase at 443, and a proBNP of 216. Emergency room contacted [facility] cardiology who recommended a CTA of her chest which was negative for PE. He then recommended an echocardiogram and further stress testing. Patient was admitted under observation status for further evaluation of her chest pain. Discharge Providers Provider Date of admission: 06/21/20 10:22 Discharge Date: 06/23/20 Primary care physician: Tiffanie Miller PA-C Discharge provider: Stanislaw Shelley DO Summary Hospital Course Discharge Diagnosis: Please see hospital course by problem list noted below Hospital Course: Kaylyn De Leon is a 59 year old female with chronic low back pain, prior peptic ulcer disease who presented to the emergency room with worsening dyspnea on exertion and chest pressure over the past 2 days. She is admitted to Medicine for further evaluation of her symptoms with a stress test. 1. Shortness of breath and chest pressure, acute, present on admission -symptoms highly concerning for cardiac etiology given history and ST depressions on EKG and worsened during stress testing. Troponins were negative, prolonged testing obtained given her ST depressions during stress testing. Given negative nuclear portion cardiology recommended against cardiac catheterization at this time. CTA negative for PE but did show spiculated lung nodule and emphesematous changes as well. -COVID-19 testing was negative. -cardiology recommended medical treatment with aspirin, statin, and beta-geni as tolerated. If her symptoms are not controlled with these therapies, could possibly consider cardiac catheterization. -risk stratififcation labs TC 192, LDL 113, HDL 60. TG 92. TSH 1.99. A1c is 5.4%. 2. Incidental lung nodule noted on CT imaging. - spiculated 8 mm nodule noted on CT imaging for shortness of breath. Will need PMD follow up. Risk of malignancy is 10% per Hunter equation (intermediate risk). Management varies from imaging follow up with additional CT or PET scan to possible surgical resection/biopsy. 3. Sinusitis, frontal, acute, not present on admission - started augmentin therapy x5 days. Patient was discharged home with plan to follow-up with her primary care provider. Exam Vital Signs (past 8 hours): - 06/23/20 01:00 06/23/20 04:00 Temperature 97.0 F L Pulse Rate 66 Respiratory Rate 18 Blood Pressure 115/78 Pulse Oximetry 98 96 Oxygen Delivery Method Room Air Oxygen Flow Rate 0 Narrative Exam Narrative: GENERAL APPEARANCE: Well developed, well nourished, in no acute distress. SKIN: Inspection of the skin reveals no rashes, ulcerations or petechiae. HEENT: Normocephalic atraumatic, extraocular muscles are intact, oropharynx is clear and mucous membranes are moist, neck is supple without adenopathy. +frontal sinus tenderness on the L. NECK: Supple and symmetric. There was no thyroid enlargement, and no tenderness, or masses were felt. CHEST: Normal AP diameter and normal contour without any kyphoscoliosis. LUNGS: Auscultation of the lungs revealed no wheezes, rhonchi, or rales. CARDIOVASCULAR: There was a regular rate and rhythm without any murmurs, gallops, rubs. Peripheral pulses were 2+ and symmetric. ABDOMEN: Soft and nontender with normal bowel sounds. No ascites was noted. MUSCULOSKELETAL: There was no tenderness or effusions noted. Muscle strength and tone were normal. EXTREMITIES: No cyanosis, clubbing or edema. NEUROLOGIC: Alert and oriented x 3. Normal affect. Gait was normal. Strength is +5/5 in the Upper Extremities and Lower Extremities Bilaterally. Sensation to touch was normal. Objective Labs Result Diagrams: 06/23/20 05:45 06/23/20 05:45 Labs: Laboratory Results - last 24 hr 06/22/20 06/23/20 06/23/20 19:57 05:45 05:45 WBC 7.2 RBC 4.07 Hgb 13.3 Hct 39.0 MCV 95.7 MCH 32.8 MCHC 34.2 RDW 12.4 Plt Count 269 Neut % (Auto) 46.3 L Lymph % (Auto) 39.8 Archer % (Auto) 7.6 Eos % (Auto) 5.4 H Baso % (Auto) 0.9 Neut # (Auto) 3300 Lymph # (Auto) 2900 Archer # (Auto) 500 Eos # (Auto) 400 Baso # (Auto) 100 Sodium 141 Potassium 4.0 Chloride 108 H Carbon Dioxide 27 BUN 17 Creatinine 0.57 Estimated GFR > 60.0 BUN/Creatinine Ratio 29.8 H Glucose 98 Calcium 8.8 Magnesium 2.0 Total Bilirubin 0.4 Conjugated Bilirubin 0.0 Unconjugated Bilirubin 0.4 AST 23 ALT 15 Alkaline Phosphatase 74 Troponin I < 0.012 Total Protein 6.8 Albumin 4.0 Globulin 2.8 Albumin/Globulin Ratio 1.4 06/23/20 05:45 WBC RBC Hgb Hct MCV MCH MCHC RDW Plt Count Neut % (Auto) Lymph % (Auto) Archer % (Auto) Eos % (Auto) Baso % (Auto) Neut # (Auto) Lymph # (Auto) Archer # (Auto) Eos # (Auto) Baso # (Auto) Sodium Potassium Chloride Carbon Dioxide BUN Creatinine Estimated GFR BUN/Creatinine Ratio Glucose Calcium Magnesium Total Bilirubin Conjugated Bilirubin Unconjugated Bilirubin AST ALT Alkaline Phosphatase Troponin I < 0.012 Total Protein Albumin Globulin Albumin/Globulin Ratio Discharge Plan Discharge Plan Patient Disposition: Home Discharge comment: You were admitted to the hospital with chest pressure and shortness of breath. You had a positive EKG portion of your stress testing and an unremarkable nuclear portion. I recommend further testing with a pulmonary function test given on your CT you had evidence of mild emphysema. You also had an 8 mm spiculated lung nodule which should be followed up with your PCP soon as there is a variety of ways to monitor this. If you continue to have symptoms, you may need more invasive testing after maximal medical therapy. Discharge orders & Medications Prescriptions: New aspirin 81 mg Tablet,Delayed Release (Dr/Ec) 81 mg PO DAILY 30 Days Qty: 30 RF: 0 atorvastatin [Lipitor] 20 mg Tablet 40 mg PO BEDTIME 30 Days Qty: 30 RF: 0 metoprolol succinate 25 mg Tablet Extended Release 24 Hr 12.5 mg PO BID 30 Days Qty: 30 RF: 0 pantoprazole 20 mg Tablet,Delayed Release (Dr/Ec) 20 mg PO 0700 30 Days Qty: 30 RF: 0 amoxicillin-pot clavulanate [Augmentin] 875-125 mg tablet 1 tab PO BID 5 Days Qty: 10 RF: 0 ondansetron 4 mg tablet,disintegrating 4 mg PO Q8H PRN (Reason: nausea and vomiting) 14 Days Qty: 30 RF: 0 Continued multivitamin [Multiple Vitamins] 1 EACH tablet 1 tab PO DAILY Qty: 0 RF: 0 cholecalciferol (vitamin D3) [Vitamin D3] 1,000 unit Capsule 1,000 unit PO DAILY Qty: 0 RF: 0 albuterol sulfate [Ventolin HFA] 90 MCG/PUFF HFA aerosol inhaler 2 puff INH PRN PRN (Reason: Shortness Of Breath) Qty: 0 RF: 0 topiramate 100 mg tablet 100 mg PO BID RF: 0 Qvar RediHaler 1 puff Inhalation DIRECTED RF: 0 fexofenadine [Leslie Allergy] 180 mg Tablet 180 mg PO DAILY RF: 0 ondansetron HCl 4 mg tablet 4 mg PO TID-QID PRN (Reason: nausea and vomiting) Qty: 14 RF: 0 Follow up/Referrals: Tiffanie Miller PA-C [Primary Care Provider] - (follow up as previously scheduled.) Diet/Activity/Treatments Diet: Diet as Tolerated and Low-sodium Activity: As tolerated Visit Report/Discharge Packet Instructions: DI for Emphysema, DI for Shortness of Breath, Atorvastatin, Pantoprazole, Metoprolol, How to Monitor Your Blood Pressure at Home Visit Report Forms: Patient Portal/API, Stroke Signs & Symptoms Discharge Data Primary Care Provider: Tiffanie Miller Attending Provider: Stanislaw Shelley Admit Date/Time: 06/21/20 10:22 Discharges patient from system. Discharge Date/Time: 06/23/20 09:49
[2020-06-23 09:19] VITALS: BP 135/87; PULSE 68
[2020-06-23] MEDS: METOPROLOL ER 25 MG TABLET 12.5 MG PO (09:19)
--- NOTE | 2020-06-23 09:49 | PC.NURSE ---
Day Shift- Pt feeling nauseated this AM, states having feelings of sinus infection. C/O headache 05/26. PRn Oxycodone given at 0720 with good effect, pain decreased to 5/10. Zofran IV 4mg X1 given at 0920, okay by Dr. Shelley to have additional dose prior to discharge. Dr. Shelley also added anti-emetic to discharge prescriptions. Pt states has all belongings, wants to go home as soon as she can. pt's in room visiting. Discharge summary packet reviewed with pt and her at 0935. Pt states already having an appt with her PCP for SaturdayJune 27. Aware to bead picker medications at [facility]-electronically sent by Dr. Shelley. No further voiced concerns. Pt states she has a blood pressure monitor at home that she can monitor blood pressure and heart rate. Pt left unit in no distress at 0949 via wheelchair with [employer] escort. pt's present to drive pt home.
== END 2020-06-23 09:49 | disposition home or self-care (01) ==
LOC: ED 10:16 → AC 10:23
PROVIDERS: Admitting Provider Internal Medicine; Emergency Provider Emergency Medicine; PCP Physician Assistant; Visit Provider Internal Medicine
DX: R06.02 Shortness of breath (principal); Z11.59 Encounter for screening for other viral diseases; J45.998 Other asthma; R91.8 Other nonspecific abnormal finding of lung field; M54.5 Low back pain; J01.90 Acute sinusitis, unspecified
CPT/HCPCS: 36415; 71045; 71275; 78452; 80048; 80053; 80061; 80076; 81003; 82550; 82553; 83036; 83690; 83735; 83880; 84145; 84443; 84484; 85025; 85379; 87635; 93005; 93017; 93306; 96361; 96372; 96374; 96376; 99284; G0378; A9502; J1650; J2405

== ENCOUNTER → 2020-07-07 17:12 | Outpatient (CLI) | payer OTHER, SELFPAY ==
[2020-06-21 12:32] VITALS: BMI 23.6
--- NOTE | 2020-07-07 | DI.MG.S_ITS ---
BILATERAL DIGITAL SCREENING MAMMOGRAM 3D/2D WITH CAD: 07/07/2020 CLINICAL: Routine screening. Comparison is made to exams dated: 01/09/2019 mammogram, 08/03/2015 mammogram, and 04/19/2014 mammogram - [facility]. The tissue of both breasts is heterogeneously dense. This may lower the sensitivity of mammography. Current study was also evaluated with a Computer Aided Detection (CAD) system. There are benign calcifications in both breasts. There also is a biopsy clip in both breasts. No significant masses, calcifications, or other findings are seen in either breast. There has been no significant interval change. IMPRESSION: BENIGN There is no mammographic evidence of malignancy. A 1 year screening mammogram is recommended. This exam was interpreted at Station ID: [id number]. NOTE: For mammograms, a report in lay terms will be sent to the patient. Approximately 15% of breast malignancies will not be visualized mammographically. In the management of a palpable breast mass, a negative mammogram must not discourage biopsy of a clinically suspicious lesion. Electronically Signed By: Shanti michel/alicia:07/07/2020 18:01:28 letter sent: Normal Exam ACR BI-RADS Category 2: Benign Finding(s) [id number]
== END ==
PROVIDERS: PCP Physician Assistant; Referring Provider Physician Assistant; Visit Provider Physician Assistant
DX: Z12.31 Encounter for screening mammogram for malignant neoplasm of breast (principal)
CPT/HCPCS: 77063; 77067

== ENCOUNTER → 2020-11-08 09:14 | Outpatient (CLI) | payer OTHER, SELFPAY ==
[2020-06-21 12:32] VITALS: BMI 23.6
--- NOTE | 2020-11-08 | DI.CT.S_ITS ---
PROCEDURE: CT CHEST WO CON INDICATIONS: Solitary pulmonary nodule TECHNIQUE: Noncontrast 2.0-2.5 mm thick sections acquired from the pulmonary apices to the posterior costophrenic angles. 7 mm thick axial MIP and 5 mm coronal and sagittal reformats were then acquired. A low radiation dose technique was utilized. COMPARISON: [facility], CT, NM PET CT FUSION SKULL 2 THIGH, 07/06/2020, 15:43. [facility], CT, CT ANGIO CHEST PE PROTOCOL, 06/21/2020, 9:16. FINDINGS: Image quality: Diagnostic, given the low radiation dose technique. Lungs and pleura: There is a 0.8 cm spiculated nodule in the right upper lobe (image 3/126), unchanged in size. There is moderate centrilobular emphysema. No acute pulmonary opacity. No pleural effusion. Right basilar scars and atelectasis. Mediastinum: Heart size is normal. No pericardial effusion. No mediastinal adenopathy by size criteria. Thoracic aorta and central pulmonary arteries are normal in size. Mild atherosclerosis. Esophagus is normal in caliber. No hiatal hernia. Bones and chest wall: No suspicious bony lesions. No vertebral body compression fractures. No axillary or supraclavicular adenopathy by size criteria. Thyroid gland is normal. Abdomen: Visualized upper abdomen solid organs and bowel loops appear normal in the absence of contrast. IMPRESSION: 1. Stable 8 mm spiculated nodule in the right upper lobe. Recommend continued follow-up CT. The next follow-up exam in may be performed in 6 months. 2. Moderate centrilobular emphysema. Fleischner Society criteria for SOLID lung nodule followup. Nodule size (mm)Low-risk patientHigh-risk patient<6 (single or multiple)No routine followup.Optional CT at 12 months. 6-8 (single or multiple)CT at 6-12 months, then optional CT at 18-24 mo.CT at 6-12 months, then CT at 18-24 months. >8 (single)CT at 3 months, PET-CT, or biopsy. Same as for low-risk pts. >8 (multiple)CT at 3-6 months, then optional CT at 18-24 mo.CT at 3-6 months, then CT at 18-24 months. Recommendations do not apply to lung cancer screening, patients with immunosuppression, or patients with known primary cancer. Dictated by: Karyna Godinez M.D. on 11/08/2020 at 11:15 Approved by: Karyna Godinez M.D. on 11/08/2020 at 11:20
== END ==
LOC: CT 09:16
PROVIDERS: PCP Physician Assistant; Referring Provider Physician Assistant; Visit Provider Physician Assistant
DX: R91.1 Solitary pulmonary nodule (principal); J43.2 Centrilobular emphysema
CPT/HCPCS: 71250

== ENCOUNTER → 2020-12-01 14:37 | Outpatient (CLI) | payer OTHER, SELFPAY ==
[2020-06-21 12:32] VITALS: BMI 23.6
[2020-12-01] MEDS: COVID-19 VACC #1, MRNA(MOD) 100 MCG/0.5 ML VIAL IM (14:41)
== END ==
PROVIDERS: PCP Physician Assistant; Visit Provider Internal Medicine
DX: Z23 Encounter for immunization (principal)
CPT/HCPCS: 0011A; 91301

== ENCOUNTER → 2020-12-06 18:40 | Outpatient (CLI) | payer OTHER, SELFPAY ==
[2020-06-21 12:32] VITALS: BMI 23.6
--- NOTE | 2020-12-06 18:44 | DI.MRI.S_ITS ---
PROCEDURE: MR LUMBAR SPINE WO CON INDICATIONS: POSTLAMINECTOMY SYNDROME, NOT ELSEWHERE CLASSIFIED TECHNIQUE: Noncontrast sagittal T1 spin echo and T2 fast echo, sagittal STIR, axial T1 and T2 fast spin echo through the lumbar spine. In cases with scoliosis, additional coronal T2 fast spin echo may be performed. COMPARISON: [facility], MR, MR LUMBAR SPINE WO/W CON, 07/16/2018, 7:38. [facility], CR, XR LUMBAR SPINE 2-3V, 07/11/2018, 12:06. FINDINGS: Image quality: Excellent. Alignment and Curvature: There is trace L2-L3 retrolisthesis. There is approximately 33? of convex right lumbar spine scoliosis. Bones: Postsurgical changes compatible with L4-L5 right laminotomy. Reactive endplate changes noted adjacent to the L2-L3, L3-L4, L4-L5 and L5-S1 discs. No acute vertebral body compression fractures. Spinal Cord: Conus medullaris terminates at the L1-2 disc level. Visualized cord demonstrates normal signal and size. Paraspinous Soft Tissues: No paravertebral masses. T12-L1: Loss of disc signal and height. Mild, diffuse disc bulge. No central stenosis. No neural foraminal narrowing. No compression. L1-L2: Loss of disc signal and height. Mild, diffuse disc bulge. Central/right central disc protrusion. Mild narrowing of the central canal. Mild right neural foraminal narrowing. No neural compression. L2-L3: Loss of disc signal and height. Minimal, diffuse disc bulge. Mild bilateral facet hypertrophy. Mild narrowing of the central canal. Mild right and moderate left neural foraminal narrowing. No neural compression. L3-L4: Loss of disc signal and height. Mild, diffuse disc bulge. Mild bilateral facet hypertrophy. Mild narrowing of the central canal. Mild right and moderate left neural foraminal narrowing. No neural compression. L4-L5: Loss of disc signal and height. Moderate, diffuse disc bulge. Moderate bilateral facet hypertrophy. Mild to moderate narrowing of the central canal. Moderate to severe right and moderate left neural foraminal narrowing. No neural compression. L5-S1: Loss of disc signal. Mild, diffuse disc bulge. Mild bilateral facet hypertrophy. No central stenosis. Severe right neural foraminal narrowing with compression of the exiting right L5 nerve root. IMPRESSION: 1. Convex right scoliosis. 2. Multilevel degenerative disc disease. 3. Multilevel facet arthropathy. 4. No severe central canal narrowing. 5. Severe right L5-S1 neural foraminal narrowing with compression of the exiting right L5 nerve root. Dictated by: Fanny Davila MD, PhD on 12/07/2020 at 9:40 Approved by: Fanny Davila MD, PhD on 12/07/2020 at 10:08
== END ==
PROVIDERS: PCP Physician Assistant; Referring Provider Acupuncturist; Visit Provider Acupuncturist
DX: M96.1 Postlaminectomy syndrome, not elsewhere classified (principal); M51.36 Other intervertebral disc degeneration, lumbar region; M47.816 Spondylosis without myelopathy or radiculopathy, lumbar region; M47.817 Spondylosis without myelopathy or radiculopathy, lumbosacral region; M48.061 Spinal stenosis, lumbar region without neurogenic claudication; M48.07 Spinal stenosis, lumbosacral region
CPT/HCPCS: 72148

== ENCOUNTER → 2020-12-08 14:38 | Outpatient (ROUT) | payer OTHER, SELFPAY ==
[2020-06-21 12:32] VITALS: BMI 23.6
[2020-12-08 15:36] LABS: Add Manual Diff / Slide Review NO; Basophils Absolute Auto 100 /uL (0-100); Eosinophils Absolute Auto 500 /uL (0-450); Eosinophils Percent Auto 4.3 % (2-4); Hematocrit 38.1 % (36-46); Lymphocytes Absolute Auto 2000 /uL (1100-4500); Lymphocytes Percent Auto 18.7 % (25-40); Mean Corpuscular Hemoglobin 32.1 PG (26-34); Mean Corpuscular Volume 94.5 fL (80-100); Monocytes Absolute Auto 500 /uL (0-900); Monocytes Percent Auto 4.9 % (3-14); Neutrophils Absolute Auto 7700 /uL (1500-7000); Neutrophils Percent Auto 71.1 % (50-75); Platelet Count 253 X10^3/uL (150-400); Red Blood Cell Count 4.03 X10^6/uL (4.0-5.2); Red Cell Distribution Width 12.5 % (11.6-14.8); White Blood Cell Count 10.8 X10^3/uL (4.5-11.0)
[2020-12-08 16:20] LABS: Alanine Aminotransferase 14 IU/L (<35); Albumin 4.1 g/dL (3.5-5.0); Albumin Globulin Ratio 1.6 (1.0-2.8); Alkaline Phosphatase 88 U/L (38-126); Aspartate Aminotransferase 21 IU/L (14-36); Bilirubin Total 0.1 mg/dL (0.2-1.3); Blood Urea Nitrogen 14 mg/dL (7-17); Calcium 9.4 mg/dL (8.4-10.2); Carbon Dioxide 26 mmol/L (22-32); Chloride 106 mmol/L (98-107); Estimated Glomerular Filt Rate > 60.0 mL/min (>60); Globulin 2.6 g/dL (1.7-4.1); Glucose 87 mg/dL (80-110); HEMOLYSIS < 15 (0-50); Potassium 4.1 mmol/L (3.4-5.1); Sodium 139 mmol/L (137-145); Total Protein 6.7 g/dL (6.3-8.2)
[2020-12-08 16:50] LABS: TSH w/ Reflex to FT4 2.33 uIU/mL (0.47-4.68)
[2020-12-08 18:10] LABS: Hemoglobin A1C% w Est Avg Glu 5.4 % (4.0-6.0)
== END ==
PROVIDERS: PCP Physician Assistant; Visit Provider Physician Assistant
DX: R35.0 Frequency of micturition (principal); R53.83 Other fatigue
CPT/HCPCS: 80053; 83036; 84443; 85025; 87077; 87086; 87186

== ENCOUNTER → 2020-12-29 14:36 | Outpatient (CLI) | payer OTHER, SELFPAY ==
[2020-06-21 12:32] VITALS: BMI 23.6
[2020-12-29] MEDS: COVID-19 VACC #2, MRNA(MOD) 100 MCG/0.5 ML VIAL IM (14:41)
== END ==
PROVIDERS: PCP Physician Assistant; Visit Provider Internal Medicine
DX: Z23 Encounter for immunization (principal)
CPT/HCPCS: 0012A; 91301

== ENCOUNTER 2021-03-15 13:42 | Emergency (ER) | payer OTHER, SELFPAY ==
[2020-06-21 12:32] VITALS: BMI 23.6
[2021-03-15 13:56] VITALS: BP 172/102; PULSE 78; RESP 17; TEMP 37.2; O2SAT 97
[2021-03-15 16:04] LABS: Add Manual Diff / Slide Review NO; Basophils Absolute Auto 100 /uL (0-100); Basophils Percent Auto 1.1 % (0-2); Eosinophils Absolute Auto 200 /uL (0-450); Eosinophils Percent Auto 3.1 % (2-4); Hematocrit 40.4 % (36-46); Lymphocytes Absolute Auto 2600 /uL (1100-4500); Lymphocytes Percent Auto 39.8 % (25-40); Mean Corpuscular HGB Conc 34.6 % (30-36); Mean Corpuscular Hemoglobin 32.3 PG (26-34); Mean Corpuscular Volume 93.6 fL (80-100); Monocytes Absolute Auto 400 /uL (0-900); Monocytes Percent Auto 6.1 % (3-14); Neutrophils Absolute Auto 3300 /uL (1500-7000); Neutrophils Percent Auto 49.9 % (50-75); Platelet Count 219 X10^3/uL (150-400); Red Blood Cell Count 4.32 X10^6/uL (4.0-5.2); Red Cell Distribution Width 12.8 % (11.6-14.8); White Blood Cell Count 6.6 X10^3/uL (4.5-11.0)
[2021-03-15 16:14] LABS: Alanine Aminotransferase 18 IU/L (<35); Albumin 4.6 g/dL (3.5-5.0); Albumin Globulin Ratio 1.4 (1.0-2.8); Alkaline Phosphatase 98 U/L (38-126); Aspartate Aminotransferase 26 IU/L (14-36); BUN Creatinine Ratio 18.8 (6-22); Bilirubin Total 0.4 mg/dL (0.2-1.3); Blood Urea Nitrogen 13 mg/dL (7-17); Calcium 9.4 mg/dL (8.4-10.2); Carbon Dioxide 25 mmol/L (22-32); Chloride 109 mmol/L (98-107); Creatine Kinase 178 U/L (30-135); Estimated Glomerular Filt Rate > 60.0 mL/min (>60); Globulin 3.4 g/dL (1.7-4.1); Glucose 101 mg/dL (80-110); HEMOLYSIS < 15 (0-50); Potassium 3.6 mmol/L (3.4-5.1); Sodium 140 mmol/L (137-145)
[2021-03-15 16:25] LABS: Troponin I < 0.012 ng/mL (0.01-0.034)
[2021-03-15 16:29] LABS: CKMB % Relative Index 4.3 % (1.5-5.0); Creatine Kinase MB 7.72 ng/mL (<2.37)
--- NOTE | 2021-03-15 16:34 | DI.RAD.S_ITS ---
PROCEDURE: XR CHEST 1V INDICATIONS: arrythmia TECHNIQUE: One view of the chest was acquired. COMPARISON: [facility], CR, XR CHEST 1V, 06/21/2020, 8:08. FINDINGS: Surgical changes and devices: None. Lungs and pleura: Lungs are mildly abnormal with an interstitial prominence pattern, chronic, and also large lung volumes suggestive of COPD.. No pleural effusions or pneumothorax. Mediastinum: Mediastinal contours appear normal. Heart size is normal. Bones and chest wall: No suspicious bony lesions. Overlying soft tissues appear unremarkable. IMPRESSION: Large lung volumes, suspect COPD. Mild interstitial prominence, no sign of CHF. Dictated by: Josué Burns M.D. on 03/15/2021 at 17:06 Approved by: Josué Burns M.D. on 03/15/2021 at 17:07
--- NOTE | 2021-03-15 18:11 | ED_ITS ---
HPI - Arrhythmia/Palpitations General Chief Complaint: Arrhythmia/Palpitations Stated Complaint: arrhythmia. Doctor told her to come here Time Seen by Provider: 03/15/21 16:34 Source: patient Mode of arrival: Ambulatory History of Present Illness HPI narrative: This is a 60-year-old female comes with complaint of feeling like her heart was beating fast. She feels it in her chest. She feels like she has to take even breath. Patient does not have any pressure or pain. She has not had any syncope. Patient feels like she has to roll over the middle the night. Patient states that she has the Apple watch it has noted elevated heart rates as high as 204. In her right feels irregular. She has not had any nausea or vomiting. No diarrhea or constipation. No urinary symptoms. Patient states she does take a statin, metoprolol MB for nor feign. She denies any prior surgeries except her back in 2010. Does have a family history, her mother coronary artery disease with multiple stents starting in her late 50s. She used multiple allergies to medications. Former smoker for approximately 20 years. Related Data Home Medications Medication Instructions Recorded Confirmed cholecalciferol (vitamin D3) 25 1,000 unit PO DAILY #0 02/27/17 06/21/20 mcg (1,000 unit) capsule (Vitamin D3) multivitamin (Multiple Vitamins) 1 tab PO DAILY #0 02/27/17 06/21/20 albuterol sulfate 90 mcg/actuation 2 puff INH PRN PRN #0 03/05/17 06/21/20 aerosol inhaler (Ventolin HFA) Qvar RediHaler 1 puff INHALATION DIRECTED 07/09/18 06/21/20 fexofenadine 180 mg tablet 180 mg PO DAILY 07/09/18 06/21/20 (Leslie Allergy) topiramate 100 mg tablet 100 mg PO BID 07/09/18 06/21/20 Previous Rx's Medication Instructions Recorded ondansetron HCl 4 mg tablet 4 mg PO TID-QID PRN #14 tab 07/09/18 Allergies Allergy/AdvReac Type Severity Reaction Status Date / Time NSAIDS (Non-Steroidal Allergy Intermediate Verified 03/15/21 14:03 Anti-Inflamma [NSAIDS (NON-STEROIDAL ANTI-INFLAMMA] aspirin [ASPIRIN] Allergy Unknown Verified 03/15/21 14:03 Sulfa (Sulfonamide Allergy Unknown Verified 03/15/21 14:03 Antibiotics) [SULFA (SULFONAMIDE ANTIBIOTICS)] Review of Systems Review of Systems ROS Unobtainable: All systems reviewed & are unremarkable except as noted in HPI and below Patient History Medical History (Updated 03/15/21 @ 19:16 by Sarah Mc DO) Chronic back pain IBS (irritable bowel syndrome) Kidney stone on right side Kidney stones Scoliosis Urethral pain Social History household members: spouse Smoking Status: Former smoker Smoking Status: Former smoker alcohol intake frequency: a few times a month Alcohol type: wine Substance Use Type: does not use Exam Narrative Exam Narrative: GENERAL: Alert and oriented x three, female mild exam. HEENT: Head normocephalic, atraumatic, EOMI, pupils reactive, face symmetric, moist mucous membranes NECK: Supple, full range of motion CARDIOVASCULAR: Regular rate and rhythm without murmurs, rubs or gallops. No JVD. No swelling extremities. RESPIRATORY: Breath sounds equal bilaterally, no wheezes rales or rhonchi. ABDOMEN: Soft, nontender. Normoactive bowel sounds all 4 quadrants. No guarding or rebound, rigidity, no mass : No CVA tenderness EXTREMITIES: Normal range of motion. Neurovascularly intact NEUROLOGICAL: Cranial nerves II through XII grossly intact. Moving all extremities SKIN: Warm, dry, no petechiae, no rashes or lesions. Initial Vital Signs Initial Vital Signs: Vital Signs Temperature 99 F 03/15/21 13:56 Pulse Rate 78 03/15/21 13:56 Respiratory Rate 17 03/15/21 13:56 Blood Pressure 172/102 H 03/15/21 13:56 Pulse Oximetry 97 03/15/21 13:56 Course Orders Ordered: ED Orders 03/15/21 15:55 Complete Blood Count AUTO DIFF Stat Comprehensive Metabolic Panel Stat Troponin & CK Cardiac Panel Stat 03/15/21 16:34 XR chest 1V Stat Vital Signs Vital signs: Vital Signs - 8 hr 03/15/21 13:56 Temperature 99 F Pulse Rate 78 Respiratory Rate 17 Blood Pressure 172/102 H Pulse Oximetry 97 MDM - Arrhythmia/Palpitations Lab Data Result diagrams: 03/15/21 15:55 03/15/21 15:55 Labs: Lab Results 03/15/21 03/15/21 Range/Units 15:55 15:55 WBC 6.6 (4.5-11.0) X10^3/uL RBC 4.32 (4.0-5.2) X10^6/uL Hgb 14.0 (12.0-16.0) g/dL Hct 40.4 (36-46) % MCV 93.6 (80-100) fL MCH 32.3 (26-34) PG MCHC 34.6 (30-36) % RDW 12.8 (11.6-14.8) % Plt Count 219 (150-400) X10^3/uL Neut % (Auto) 49.9 L (50-75) % Lymph % (Auto) 39.8 (25-40) % [place] % (Auto) 6.1 (3-14) % Eos % (Auto) 3.1 (2-4) % Baso % (Auto) 1.1 (0-2) % Neut # (Auto) 3300 (5863-1780) /uL Lymph # (Auto) 2600 (8785-1635) /uL [place] # (Auto) 400 (0-900) /uL Eos # (Auto) 200 (0-450) /uL Baso # (Auto) 100 (0-100) /uL Sodium 140 (137-145) mmol/L Potassium 3.6 (3.4-5.1) mmol/L Chloride 109 H (98-107) mmol/L Carbon Dioxide 25 (22-32) mmol/L BUN 13 (7-17) mg/dL Creatinine 0.69 (0.52-1.04) mg/dL Estimated GFR > 60.0 (>60) mL/min BUN/Creatinine Ratio 18.8 (6-22) Glucose 101 (80-110) mg/dL Calcium 9.4 (8.4-10.2) mg/dL Total Bilirubin 0.4 (0.2-1.3) mg/dL AST 26 (14-36) IU/L ALT 18 (<35) IU/L Alkaline Phosphatase 98 (38-126) U/L Total Creatine Kinase 178 H (30-135) U/L CK-MB (CK-2) 7.72 H (<2.37) ng/mL CK-MB (CK-2) Rel Index 4.3 (1.5-5.0) % Troponin I < 0.012 (0.01-0.034) ng/mL Total Protein 8.0 (6.3-8.2) g/dL Albumin 4.6 (3.5-5.0) g/dL Globulin 3.4 (1.7-4.1) g/dL Albumin/Globulin Ratio 1.4 (1.0-2.8) Imaging Data Chest x-ray: Radiologist's Impresson: [address] [id number] ReportSigned Patient: Kaylyn De Leon [facility]#: [id number]: 1960Acct:[id number]/Sex: 60 / FDate of Service: 03/15/21Loc: EDAccession Number: [id number] Procedure: XR chest 1V Ordering Provider: Sarah Mc D.O. PROCEDURE: XR CHEST 1V INDICATIONS: arrythmia TECHNIQUE: One view of the chest was acquired. COMPARISON: [facility], , XR CHEST 1V, 06/21/2020, 8:08. FINDINGS: Surgical changes and devices: None. Lungs and pleura: Lungs are mildly abnormal with an interstitial prominence pattern, chronic, and also large lung volumes suggestive of COPD.. No pleural effusions or pneumothorax. Mediastinum: Mediastinal contours appear normal. Heart size is normal. Bones and chest wall: No suspicious bony lesions. Overlying soft tissues appear unremarkable. IMPRESSION: Large lung volumes, suspect COPD. Mild interstitial prominence, no sign of CHF. Dictated by: Josué Burns M.D. on 03/15/2021 at 17:06 Approved by: Josué Burns M.D. on 03/15/2021 at 17:07 ECG Data Interpretation: Sinus rhythm, patient has ST changes 2 3 AVF. No elevation but does have some changes V1 2 and 3 with some depression in V4 5 6. Patient has prior EKG that appears similar today. Repeat EKG also shows similar changes with no changes from 1st EKG today. Rate of 69, SC of 116, QRS of 90 QTC of 441. MDM Narrative Medical decision making narrative: This is a 60-year-old male comes with complaint of palpitations. Here in the department patient has had sinus rhythm. She has ST segment changes but these are consistent with patient's prior EKGs from 06/21/2020. Patient started having chest pain or pressure but more palpitations symptoms. She was able to show me the episodes on her Apple watch. She has had very short episodes sometimes 1-2 minute increments or heart rate will jump up according to her Apple watch and then returns immediately to normal. Discussed with patient there is a possibility she is having cardiac arrhythmia, she could be having short episode of SVT but I would suspect possibly PVCs and explained that even with our telemetry monitors if she has a couple PVCs or 1 or 2 this can sometimes appear to change the right. Patient was recommended to follow-up she is already set up Cardiology. We discussed nilesh t there is Jaclyn a monitor that you can non destructive testing supervisor to her fall that she can try if she feels comfortable. This is not the same as a true Holter or ZIO patch but may give some additional information while waiting to see the baby stroller rental clerk. Patient was encouraged to return if she has recurrent symptoms, persistent symptoms or other new or worsening symptoms. Discharge Plan Departure Patient Disposition: Home Clinical Impression: Palpitations Instructions: DI for Palpitations Activity Restrictions/Additional Instructions: Follow-up with your baby stroller rental clerk at your scheduled appointment on the . You can contact them to see if they can see you sooner. Call your primary care physician, they can possibly order a Holter monitor or Ziopatch while you are waiting for your cardiology appointment. You do have changes on your EKG but these appear similar to her prior EKG from 2009. A copy is included today. We were unable to capture any rhythm changes here in the emergency department to day. There are several possibilities but there did not appear to be any acute dangerous cardiac events or other causes occurring at this time. Monitor with your phone that gives a rhythm strip similar to an EKG. It is not as exact but may capture any rhythm abnormalities. Jaclyn with [employer] [email or web address] utm_medium=product_s yPricefalls&utm_source=Lumicity&utm_content=sag_organic&utm_campaign=sag_organic&gclid=[id number] Please return for recurrent or persistent symptoms, lightheadedness or passing out, new chest pain or shortness of breath, persistent vomiting, new swelling in her extremities or other new or concerning symptoms. Prescriptions: No Action multivitamin [Multiple Vitamins] 1 EACH tablet 1 tab PO DAILY Qty: 0 RF: 0 cholecalciferol (vitamin D3) [Vitamin D3] 1,000 unit Capsule 1,000 unit PO DAILY Qty: 0 RF: 0 albuterol sulfate [Ventolin HFA] 90 MCG/PUFF HFA aerosol inhaler 2 puff INH PRN PRN (Reason: Shortness Of Breath) Qty: 0 RF: 0 topiramate 100 mg tablet 100 mg PO BID RF: 0 Qvar RediHaler 1 puff Inhalation DIRECTED RF: 0 fexofenadine [Leslie Allergy] 180 mg Tablet 180 mg PO DAILY RF: 0 ondansetron HCl 4 mg tablet 4 mg PO TID-QID PRN (Reason: nausea and vomiting) Qty: 14 RF: 0 Referrals: Tiffanie Miller PA-C [Primary Care Provider] -
[2021-03-15 19:40] VITALS: BP 131/75; PULSE 63; RESP 20; O2SAT 95
== END 2021-03-15 19:41 | disposition home or self-care (01) ==
PROVIDERS: Emergency Medicine; Emergency Provider Emergency Medicine; PCP Physician Assistant
DX: R00.2 Palpitations (principal)
CPT/HCPCS: 71045; 80053; 82550; 82553; 84484; 85025; 93005; 99282; 99284

== ENCOUNTER → 2021-05-17 13:21 | Outpatient (CLI) | payer OTHER, SELFPAY ==
[2020-06-21 12:32] VITALS: BMI 23.6
--- NOTE | 2021-05-17 | DI.CT.S_ITS ---
PROCEDURE: CT CHEST WO CON INDICATIONS: SOLITARY PULMONARY NODULE TECHNIQUE: Noncontrast 2.0-2.5 mm thick sections acquired from the pulmonary apices to the posterior costophrenic angles. 7 mm thick axial MIP and 5 mm coronal and sagittal reformats were then acquired. A low radiation dose technique was utilized. Radiation dose: 69.2 mGycm. COMPARISON: [facility], NM, NM PET CT FUSION SKULL 2 THIGH, 07/06/2020, 15:43. [facility], CT, CT ANGIO CHEST PE PROTOCOL, 06/21/2020, 9:16. [facility], CT, CT CHEST WO CON, 11/08/2020, 9:18. FINDINGS: Image quality: Diagnostic, given the low radiation dose technique. Lungs and pleura: No change in the 0.8 cm spiculated nodule in the anterior right upper lobe (series 3, image 150). There is moderate centrilobular emphysema. Mediastinum: Heart size is normal. No pericardial effusion. No mediastinal adenopathy by size criteria. Thoracic aorta and central pulmonary arteries are normal in size. Mild atherosclerotic calcification. Esophagus is normal in caliber. No hiatal hernia. Bones and chest wall: No suspicious bony lesions. No vertebral body compression fractures. No axillary or supraclavicular adenopathy by size criteria. Thyroid gland is normal . Abdomen: Visualized upper abdomen solid organs and bowel loops appear normal in the absence of contrast. IMPRESSION: 1. Stable 0.8 cm right upper lobe lung nodule since 06/21/2020. Recommend continue CT follow-up. The next follow-up CT may be obtained in 12 months. 2. Moderate emphysema. Fleischner Society criteria for SOLID lung nodule followup. Nodule size (mm)Low-risk patientHigh-risk patient<6 (single or multiple)No routine followup.Optional CT at 12 months. 6-8 (single or multiple)CT at 6-12 months, then optional CT at 18-24 mo.CT at 6-12 months, then CT at 18-24 months. >8 (single)CT at 3 months, PET-CT, or biopsy. Same as for low-risk pts. >8 (multiple)CT at 3-6 months, then optional CT at 18-24 mo.CT at 3-6 months, then CT at 18-24 months. Recommendations do not apply to lung cancer screening, patients with immunosuppression, or patients with known primary cancer. Dictated by: Karyna Godinez M.D. on 05/17/2021 at 17:13 Approved by: Karyna Godinez M.D. on 05/17/2021 at 17:19
--- NOTE | 2021-05-17 | DI.RAD.S_ITS ---
PROCEDURE: XR T AND L SPINE 4 TO 5 VIEWS INDICATIONS: SCOLIOSIS TECHNIQUE: 2 views acquired of the thoracolumbar spine. COMPARISON: [facility], , XR T AND L SPINE 2 TO 3 VIEWS, 01/09/2019, 12:36. FINDINGS: Bones: 40? of lumbar dextroscoliosis is seen from the level of the inferior endplate of T12 to the inferior endplate of L4. There is also 13? of dextroscoliosis seen from the level of the superior endplate of T5 to the inferior endplate of T9. There is neutral sagittal balance. Positive coronal balance. 12 pairs ribs are seen. There are 5 non rib-bearing lumbar vertebra. IMPRESSION: Scoliosis as above. Positive coronal balance Dictated by: Zia Velazquez M.D. on 05/17/2021 at 15:22 Approved by: Zia Velazquez M.D. on 05/17/2021 at 15:26
== END ==
PROVIDERS: PCP Physician Assistant; Referring Provider Physician Assistant; Visit Provider Physician Assistant
DX: J43.2 Centrilobular emphysema (principal); R91.1 Solitary pulmonary nodule; M41.9 Scoliosis, unspecified
CPT/HCPCS: 71250; 72083

== ENCOUNTER → 2021-08-26 14:03 | Outpatient (CLI) | payer OTHER, SELFPAY ==
[2020-06-21 12:32] VITALS: BMI 23.6
--- NOTE | 2021-08-26 14:05 | DI.RAD.S_ITS ---
PROCEDURE: XR SHOULDER RT MIN 2V INDICATIONS: ROUTINE SCREENING TECHNIQUE: 3 views of the shoulder were acquired. COMPARISON: None. FINDINGS: Bones: No fractures or dislocations. No suspicious bony lesions. Visualized ribs appear intact. Moderate hypertrophic osteoarthritic changes of the right acromioclavicular joint.Coracoclavicular and acromioclavicular intervals are maintained. Mild degenerative changes of the glenohumeral joint. Soft tissues: No suspicious soft tissue calcifications. Visualized portions of the lungs are clear. IMPRESSION: Right shoulder without acute fracture or dislocation. Moderate hypertrophic osteoarthrosis of the right acromioclavicular joint. Mild right glenohumeral joint degenerative change. Dictated by: Regan Gracia M.D. on 08/26/2021 at 19:43 Approved by: Regan Gracia M.D. on 08/26/2021 at 19:44
--- NOTE | 2021-08-26 14:05 | DI.MG.S_ITS ---
BILATERAL DIGITAL SCREENING MAMMOGRAM 3D/2D WITH CAD: 08/26/2021 CLINICAL: Routine screening. Comparison is made to exams dated: 07/07/2020 mammogram, 01/09/2019 mammogram, and 08/03/2015 mammogram - [facility]. The tissue of both breasts is heterogeneously dense. This may lower the sensitivity of mammography. Current study was also evaluated with a Computer Aided Detection (CAD) system. There are benign calcifications in both breasts. There also is a biopsy clip in both breasts. No significant masses, calcifications, or other findings are seen in either breast. There has been no significant interval change. IMPRESSION: BENIGN There is no mammographic evidence of malignancy. A 1 year screening mammogram is recommended. This exam was interpreted at Station ID: [id number]. NOTE: For mammograms, a report in lay terms will be sent to the patient. Approximately 15% of breast malignancies will not be visualized mammographically. In the management of a palpable breast mass, a negative mammogram must not discourage biopsy of a clinically suspicious lesion. Electronically Signed By: Regan still/alicia:08/28/2021 07:58:06 letter sent: Normal Exam ACR BI-RADS Category 2: Benign Finding(s) [id number]
== END ==
PROVIDERS: PCP Physician Assistant; Referring Provider Physician Assistant; Visit Provider Physician Assistant
DX: M19.011 Primary osteoarthritis, right shoulder (principal); Z12.31 Encounter for screening mammogram for malignant neoplasm of breast; M25.511 Pain in right shoulder
CPT/HCPCS: 73030; 77063; 77067

== ENCOUNTER → 2021-10-26 12:16 | Outpatient (CLI) | payer OTHER, SELFPAY ==
[2020-06-21 12:32] VITALS: BMI 23.6
== END ==
PROVIDERS: PCP Physician Assistant; Visit Provider Nurse Practitioner Family
DX: R30.0 Dysuria (principal)
CPT/HCPCS: 87086

== ENCOUNTER → 2022-01-10 13:48 | Outpatient (CLI) | payer OTHER, SELFPAY ==
[2020-06-21 12:32] VITALS: BMI 23.6
--- NOTE | 2022-01-10 13:49 | DI.MRI.S_ITS ---
PROCEDURE: MR THORACIC SPINE WO CON INDICATIONS: Pain in thoracic and lumbar spine TECHNIQUE: Noncontrast sagittal T1 spine echo and T2 fast spin echo, sagittal STIR, axial T1 and T2 fast spin echo through the thoracic spine. COMPARISON: [facility], CR, XR T AND L SPINE 4 TO 5 VIEWS, 05/17/2021, 13:37. FINDINGS: Image quality: Excellent. Alignment and Curvature: There is normal bony alignment. There is straightening normal thoracic spine curvature. Convex right scoliosis of the lower thoracic spine. Bone Marrow: Marrow is of normal overall signal. No acute vertebral body compression fractures. Spinal Cord: Visualized spinal cord is normal in size and signal. Paraspinous Soft Tissues: No paravertebral masses. Miscellaneous: Mild degenerative disc changes noted throughout the thoracic spine. Mild facet hypertrophy noted in the lower thoracic spine. No severe central canal narrowing. No severe neural foraminal narrowing. No neural compression. IMPRESSION: 1. Multilevel degenerative disc disease. 2. Multilevel facet arthropathy. 3. No severe central canal narrowing. 4. No severe neural foraminal narrowing. 5. No neural compression. 6. No vertebral body compression fracture. Dictated by: Fanny Davila MD, PhD on 01/10/2022 at 15:50 Approved by: Fanny Davila MD, PhD on 01/10/2022 at 15:53
--- NOTE | 2022-01-10 13:49 | DI.MRI.S_ITS ---
PROCEDURE: MR LUMBAR SPINE WO CON INDICATIONS: Pain in thoracic and lumbar spine TECHNIQUE: Noncontrast sagittal T1 spin echo and T2 fast echo, sagittal STIR, and T2 fast spin echo through the lumbar spine. In cases with scoliosis, additional coronal T2 fast spin echo may be performed. COMPARISON: [facility], MR, MR LUMBAR SPINE WO CON, 12/06/2020, 18:52. [facility], CR, XR T AND L SPINE 4 TO 5 VIEWS, 05/17/2021, 13:37. FINDINGS: Image quality: Excellent. Alignment and Curvature: Convex right thoracolumbar spine scoliosis. Bone Marrow: Modic type 1 reactive endplate changes noted adjacent to the L2-L3, L3-L4, L4-L5 disc.. No acute vertebral body compression fractures. Spinal Cord: Conus medullaris terminates at the L2 level. Visualized cord demonstrates normal signal and size. Paraspinous Soft Tissues: No paravertebral masses. T12-L1: Loss of disc signal and height. Mild, diffuse disc bulge. Mild bilateral facet hypertrophy. No central stenosis. No neural foraminal narrowing. No neural compression L1-L2: Loss of disc signal and height. Moderate, diffuse disc bulge. Mild bilateral facet hypertrophy. Mild narrowing of the central canal. Mild bilateral neural foraminal narrowing. No neural compression. Fissure noted in the posterior annulus. L2-L3: Loss of disc signal and height. Mild, diffuse disc bulge. Mild bilateral facet hypertrophy. Mild narrowing central canal. Mild bilateral neural foraminal narrowing. No neural compression. Fissure noted in the posterior annulus. L3-L4: Loss of disc signal and height. Mild, diffuse disc bulge. Moderate right and mild left facet hypertrophy. Mild to moderate narrowing of the central canal. Mild bilateral neural foraminal narrowing. No neural compression. L4-L5: Loss of disc signal and height. Moderate, diffuse disc bulge. Moderate bilateral facet hypertrophy. Moderate narrowing of the central canal. Severe right and moderate left neural foraminal narrowing with mild compression of the exiting right L4 nerve root. L5-S1: Loss of disc signal. Mild, diffuse disc bulge. Mild bilateral facet hypertrophy. No central stenosis. Severe right neural foraminal narrowing with compression of the exiting right L5 nerve root. Fissure noted in the posterior annulus. IMPRESSION: 1. Convex right scoliosis. 2. Multilevel degenerative disc disease. 3. Multilevel facet arthropathy. 4. No severe central canal narrowing. 5. Severe right L4-L5 and L5-S1 neural foraminal narrowing with compression of the exiting right L4 and L5 nerve roots. 6. T12-L1, L1-L2, L2-L3 and L5-S1 disc annulus fissures. Dictated by: Fanny Davila MD, PhD on 01/10/2022 at 15:44 Approved by: Fanny Davila MD, PhD on 01/10/2022 at 15:49
== END ==
PROVIDERS: PCP Physician Assistant; Referring Provider Physician Assistant; Visit Provider Physician Assistant
DX: M51.17 Intervertebral disc disorders with radiculopathy, lumbosacral region (principal); M51.16 Intervertebral disc disorders with radiculopathy, lumbar region; M47.26 Other spondylosis with radiculopathy, lumbar region; M47.27 Other spondylosis with radiculopathy, lumbosacral region; M48.061 Spinal stenosis, lumbar region without neurogenic claudication; M48.07 Spinal stenosis, lumbosacral region; M47.814 Spondylosis without myelopathy or radiculopathy, thoracic region; M41.25 Other idiopathic scoliosis, thoracolumbar region
CPT/HCPCS: 72146; 72148